=== PATIENT | male | born 2000 | race Caucasian/White ===

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

== ENCOUNTER 2020-01-03 15:30 | Outpatient (RCR) | payer BC, SELFPAY ==
--- NOTE | 2019-11-12 16:24 | HMH.PTOPEV ---
PT Outpatient Evaluation Rehab PT Outpatient Evaluation Start: 11/12/19 15:41 Freq: Status: Active Protocol: Document 11/12/19 15:42 BRANMANUELITO (Rec: 11/12/19 16:24 KESHAWN [id number]) Electronically Signed By Angel Plaza PT 11/12/19 15:42 Outpatient Therapy Subjective History Subjective History This is the initial Physical Therapy evaluation for Chandler Nguyen. Pt is a 19 y/o male referred to PT for c/o R knee pain and chronic patellar subluxation. Pt reports first bout of subluxation was ~ 4-5 months ago. Pt reports he twisted and his knee popped causing it to buckle and give out. Pt reports he had some swelling afterwards. Pt was sent to Physical Therapy s/p this incident and took PT for ~ 1 month. Pt reports he felt better and stopped therapy and HEP. Pt states that he had no problems until ~ 1 month ago when he was working on a machine at work and his knee popped and buckled. Pt reports to PT for c/o R knee pain. Chief Complaint Pain,Stiff,Swelling,Gives out/ Unstable Symptom Type Ache,Throb,Sharp Symptoms Relieved By Rest/Positioning Symptoms Aggravated By Physical Activity,Twisting Prior Functional Limitations None Current Functional Limitations Squatting,Recreation Activity, Stairs Symptom Description Intermittent Level of pain today (0-10) 0 Pain scale - at its best (0-10) 0 Pain scale - at its worst (0-10) 7 Hip/Knee Eval Gait Observation General Gait Pattern Observation Antalgic Gait Assistive Device Assistive Devices None / NA MMT right Hip Flexion Strength Grade 4 Good Hip Abduction Strength Grade 5 Normal Hip Adduction Strength Grade 5 Normal Hip External Rotation Strength Grade 4 Good Hip Internal Rotation Strength Grade 4 Good Knee Extension Strength Grade 5 Normal Knee Flexion Strength Grade 5 Normal ROM Hip ROM Reason Not Measured Within Functional Limits Knee ROM Reason Not Measured Within Functional Limits Special Tests Knee Apprehension Test Positive Right Knee Apley Compression Test Negative Right
== END 2020-01-03 16:24 | disposition home or self-care (01) ==
LOC: PT 15:30
PROVIDERS: PCP Family Medicine; Visit Provider Orthopaedic Surgery
DX: S83.001A Unspecified subluxation of right patella, initial encounter; M25.561 Pain in right knee
CPT/HCPCS: 97010; 97014; 97110; 97163; G0283

== ENCOUNTER 2020-02-17 02:55 | Emergency (ER) | payer BC, SELFPAY ==
[2020-02-17 03:05] VITALS: BP 182/92; PULSE 101; RESP 17; TEMP 36.2; O2SAT 98; BMI 30.9
--- NOTE | 2020-02-17 03:09 | CT_ITS ---
Procedure: CT ABDOMEN [facility] Referring Doctor: Mahesh Coleman Patient Age:19Y CLINICAL INDICATION: abdominal pain Right flank pain started this morning with nausea COMPARISON: CT CT A[facility]OM[facility] from 09/28/2019 TECHNIQUE: No IV contrast but no oral contrast. Helical axial images obtained with sagittal and coronal reformats. All CT scans at the facility use one or more dose reduction, viz: automated exposure control, ma/kV adjustment per patient size (including targeted exams where dose is matched to indication, i.e. head), or iterative reconstruction technique. FINDINGS: Lower thorax: No acute finding lung bases clear heart normal size 2 ABDOMEN: Liver: Mild diffuse fatty changes,. Generous volume liver.. No masses or biliary dilatation. Gallbladder: Nondistended. No radio opaque stones. Common duct normal Pancreas: Unremarkable no masses or evident inflammatory changes Spleen: un normal upper normal size but Adrenals: unremarkable ---- tract-----obstructive uropathy on right:: RIGHT KIDNEY moderate hydronephrosis with dilatation of right ureter down to a 3.4mm x 3mm x 5 mm length calculus mid right ureter, projected over the right L4 transverse process on aviation consultant view. Mild periureteral stranding and less evident right perinephric stranding stranding-reflecting the obstructive uropathy . Right kidney additionally contains a tiny nonobstructive 2 mm calculus towards lower pole Left kidney: There is a 6 x 4 x 5 mm mm calculus midportion left kidney a rather since the location but appears nonobstructive. Tiny less barely evident 1 mm calcification, calculus developing at upper pole axial image 38 Left ureter unremarkable Pelvis: Urinary bladder unremarkable-no calculi . Normal sized prostate and seminal vesicles, no free fluid pelvis. --GI tract.------ No significant findings: appendix normal.. Moderate solid stool most evident at right colon followed by transverse colon. [id number] . Stomach-moderate food filled stomach Peritoneum: No abnormal fluid collections. No obvious inflammatory changes. No free air. Lymph nodes: No enlarged lymph nodes apparent. Vasculature: No evidence of abdominal aortic aneurysm. No retroperitoneal hemorrhage evident. Bones: No acute fracture IMPRESSION: Obstructive uropathy on right. 3.4 x 3 x 5 mm stone at mid right ureter to the right of L4. With right hydronephrosis and dilatation of right ureter above this point Additional small nonobstructive bilateral renal calculi noted Mild fatty changes of liver Dictated by: John Berrios MD 02/18/2020 08:48 John Berrios MD in [place] 02/18/2020 08:48
[2020-02-17 03:15] LABS: Microscopic, Urine URINE MICROSCOPIC (MICROSCOPIC)
[2020-02-17 03:18] LABS: Appearance,Urine CLEAR (Clear); Bilirubin,Urine Negative (Negative); Blood, Urine 2+ (Negative); Color,Urine YELLOW (Yellow); Glucose,Urine (UA) Negative (Negative); Ketones,Urine Negative (Negative); Leukocyte Esterase,Urine Negative (Negative); Nitrate,Urine Negative (Negative); Protein,Urine TRACE (Negative); Specific Gravity, Urine >= 1.030 (1.005-1.030); Urobilinogen,Urine 0.2 EU/dl (0.2)
[2020-02-17 03:23] LABS: Amorphous Sediment,Urine Trace /lpf; RBC,Urine 20-50 #/hpf (0-3)
[2020-02-17 03:28] LABS: Barbiturates Screen,Urine Negative ng/ml (<200)
[2020-02-17 03:29] LABS: Amphetamine/Metha Screen,Urine Negative ng/ml (<1000); Benzodiazepines Screen,Urine Negative ng/ml (<200)
[2020-02-17 03:30] LABS: Methadone Screen,Urine Negative ng/ml (<300)
[2020-02-17 03:31] LABS: Cannabinoid Screen,Urine Negative ng/ml (<50); Cocaine Screen,Urine Negative ng/ml (<300)
[2020-02-17 03:32] LABS: Opiate Screen,Urine Positive ng/ml (<300)
[2020-02-17 03:33] LABS: Phencyclidine Screen,Urine Negative ng/ml (<25)
[2020-02-17 03:35] LABS: Basophils # 0.1 K/mm3 (0-0.2); Basophils % 0.6 % (0.1-2.0); Eosinophils # 0.3 K/mm3 (0.0-0.4); Eosinophils % 2.4 % (0.1-12.0); Hemoglobin 16.1 g/dL (14.1-18.0); Lymphocytes # 2.3 K/mm3 (0.7-4.5); Lymphocytes % 19.4 % (10-50); Mean Corpuscular HGB Conc 32.2 g/dL (31.8-35.4); Mean Corpuscular Hemoglobin 27.8 pg (27.0-31.2); Mean Corpuscular Volume 86.6 fl (80-94); Mean Platelet Volume 7.6 fl (7.4-10.4); Monocytes # 0.8 K/mm3 (0.1-1.0); Monocytes % 6.3 % (1.7-9.3); Neutrophils # 8.5 K/mm3 (1.8-7.8); Neutrophils % 71.4 % (37.0-80.0); Platelet Count 307 K/mm3 (142-424); Red Blood Count 5.77 M/mm3 (4.60-6.20); Red Cell Distribution Width 12.7 % (11.5-17.5)
[2020-02-17 03:45] LABS: Amylase 87 U/L (30-110); Anion Gap 16.7 mEq/L (5-15); Blood Urea Nitrogen 16 mg/dl (9-20); Calcium 10.5 mg/dl (8.4-10.2); Carbon Dioxide 27 mmol/L (22.0-30.0); Chloride 103 mmol/L (98-107); Creatinine Clearance Estimated 125 mL/min (50-200); Estimated Glomerular Filt Rate 86 ml/min (>60); GFR (African American) 104 ML/MIN (>60); Glucose 135 mg/dl (74-100); Lipase 30 U/L (23-300); Potassium 4.7 mmoL/L (3.5-5.1); Sodium 142 mmol/L (136-145)
[2020-02-17 04:43] VITALS: BP 132/60; PULSE 77; RESP 18; O2SAT 96
--- NOTE | 2020-02-17 04:44 | HMH.EDNVD ---
ED Disposition Clinical Impression: Renal colic on right side Disposition: Home, Self-Care Condition on Discharge: Good Instructions: DI for Kidney Stones Additional Instructions: fluids and call dr regalado tuesday Prescriptions: Hydrocod/Acet 5/325 mg [[place] 5/325mg tablet] 1 tab PO Q6HP PRN #7 tab PRN Reason: Moderate To Severe Pain Prescription Printed Referrals: Arun Scott MD [Primary Care Provider] - Kelvin Regalado MD [Staff Physician] - - Critical Care Critical Care Time: No Attestation: On 02/17/20, the high probability of a clinically significant, sudden or life threatening deterioration of the following system(s) required my full and direct attention, intervention and personal management. The time I documented below is in addition to time spent performing reported procedures but includes the following listed in this critical care notation. Medical Decision Making - Medical Records Medical records reviewed: Yes: I reviewed the patient's medical records. - Maynor Inquiry Pt receiving controlled substance: No Vital Signs: 02/17/20 03:05 02/17/20 04:43 Temperature 97.2 F L Temperature Source Oral Pulse Rate [Right Brachial] 101 H 77 Respiratory Rate 17 18 Blood Pressure [Right Arm] 182/92 H 132/60 Blood Pressure Mean [Right Arm] 122 84 Blood Pressure Source [Right Arm] Automatic Cuff Blood Pressure Position [Right Arm] Sitting 02 Sat by Pulse Oximetry 98 96 Oxygen Delivery Method Room Air Room Air - Lab Data Lab results reviewed: Yes: I reviewed the patient's lab results. Lab Results 02/17/20 03:10: Urine Color Yellow, Urine Appearance Clear, Urine pH 6.0, Ur Specific [place] >= 1.030, Urine Protein Trace, Urine Glucose (UA) Negative, Urine Ketones Negative, Urine Blood 2+, Urine Nitrate Negative, Urine Bilirubin Negative, Urine Urobilinogen 0.2, Ur Leukocyte Esterase Negative, Urine RBC 20-50, Amorphous Sediment Trace 02/17/20 03:10: Urine Opiates Screen Positive H, Urine Methadone Screen Negative, Ur Barbituates Screen Negative, Ur Phencyclidine Scrn Negative, Ur Amphetamines Screen Negative, U Benzodiazepines Scrn Negative, Urine Cocaine Screen Negative, U Marijuana (THC) Screen Negative 02/17/20 03:27: WBC 12.0, RBC 5.77, Hgb 16.1, Hct 50.0, MCV 86.6, MCH 27.8, MCHC 32.2, RDW 12.7, Plt Count 307, MPV 7.6, Neut % (Auto) 71.4, Lymph % (Auto) 19.4, [place] % (Auto) 6.3, Eos % (Auto) 2.4, Baso % (Auto) 0.6, Neut # (Auto) 8.5 H, Lymph # (Auto) 2.3, [place] # (Auto) 0.8, Eos # (Auto) 0.3, Baso # (Auto) 0.1 02/17/20 03:27: Sodium 142, Potassium 4.7, Chloride 103, Carbon Dioxide 27, Anion Gap 16.7 H, BUN 16, Creatinine 1.10, Estimated Creat Clear 125, Estimated GFR 86, Est GFR ( Amer) 104, Glucose 135 H, Calcium 10.5 H, Amylase 87, Lipase 30 Result diagrams: 02/17/20 03:27 02/17/20 03:27 Orders (Tests/Meds): ED MEDICATIONS Generic Name Dose Route Start Last Admin Trade Name Freq PRN Reason Stop Dose Admin Sodium Chloride 1,000 mls @ 999 mls/hr 02/17/20 03:15 02/17/20 03:36 Sod Chlor 0.9% 1000ml Bag IV 02/17/20 04:15 999 mls/hr .Q1H1M SHARMILA Administration Discontinued Medications Generic Name Dose Route Start Last Admin Trade Name Freq PRN Reason Stop Dose Admin Hydromorphone HCl 1 mg 02/17/20 03:48 02/17/20 03:53 Hydromorphone 2mg/Ml Syringe IV 02/17/20 03:49 1 mg ONCE ONE Administration Ketorolac Tromethamine 30 mg 02/17/20 03:10 02/17/20 03:35 Ketorolac 30mg/Ml Vial IV 02/17/20 03:11 30 mg ONCE ONE Administration Ondansetron HCl 4 mg 02/17/20 03:10 02/17/20 03:35 Ondansetron 4mg/2ml Vial IV 02/17/20 03:11 4 mg ONCE ONE Administration Tamsulosin HCl 0.4 mg 02/17/20 21:00 Tamsulosin 0.4mg Capsule PO 03/18/20 20:59 HS SHARMILA Tamsulosin HCl 0.4 mg 02/17/20 03:37 Tamsulosin 0.4mg Capsule PO 03/18/20 03:36 HS SHARMILA Tamsulosin HCl 0.4 mg 02/17/20 03:39 02/17/20 03:40 Tamsulosin 0.4mg Capsule PO 02/06
[2020-02-17 05:17] VITALS: BP 120/61; PULSE 82; RESP 18; TEMP 36.6; O2SAT 98
== END 2020-02-17 05:32 | disposition home or self-care (01) ==
PROVIDERS: Emergency Provider Emergency Medicine; PCP Family Medicine
DX: N23 Unspecified renal colic (principal); Z87.442 Personal history of urinary calculi
CPT/HCPCS: 74176; 80048; 80305; 81001; 82150; 83690; 85025; 96365; 96375; 99283; J2405

== ENCOUNTER 2020-12-01 12:55 | Emergency (ER) | payer BC, SELFPAY ==
[2020-12-01 12:57] VITALS: BP 136/71; PULSE 95; RESP 16; TEMP 36.8; O2SAT 99; BMI 30.1
[2020-12-01 13:22] VITALS: BP 134/67; PULSE 81; O2SAT 98
[2020-12-01 13:31] VITALS: BP 133/53; PULSE 82; O2SAT 97
--- NOTE | 2020-12-01 13:33 | XR_ITS ---
PROCEDURE: XR KNEE RT 3V CLINICAL INDICATION: knee pain COMPARISON: CR XR KNEE RT 3V from 12/29/2018 CR XR KNEE RT 4V from 08/23/2019 MR MR KNEE RT WO CON from 10/10/2019 FINDINGS: No fracture or dislocation. The joint spaces are well-preserved. No significant degenerative/arthritic changes. No erosive changes evident. Other findings:Faint calcification is present along the posterior aspect the patella proximally. This measures approximately 15 mm and may represent a loose body or synovial osteo chondroma. CT may confirm. IMPRESSION: No acute finding. Posterior patellar ossification which may represent a loose body/synovial osteo chondroma. CT may confirm. Dictated by: Timmy Perez MD 12/01/2020 14:27 Timmy Perez MD in [place] 12/01/2020 14:27
--- NOTE | 2020-12-01 13:43 | HMH.EDEXTP ---
ED Disposition Clinical Impression: Right knee sprain Qualifiers: Encounter type: initial encounter Involved ligament of knee: medial collateral ligament Qualified Code(s): S83.411A - Sprain of medial collateral ligament of right knee, initial encounter Disposition: Home, Self-Care Condition on Discharge: Good Instructions: Sprain Prescriptions: Ibuprofen [Ibuprofen 800mg Tablet] 800 mg PO TIDP PRN #20 tab PRN Reason: Moderate Pain Transmission Status: Pending to [facility] Referrals: Arun Scott MD [Primary Care Provider] - Davian Long MD [Staff Physician] - - Critical Care Critical Care Time: No Attestation: On 12/01/20, the high probability of a clinically significant, sudden or life threatening deterioration of the following system(s) required my full and direct attention, intervention and personal management. The time I documented below is in addition to time spent performing reported procedures but includes the following listed in this critical care notation. Medical Decision Making - Medical Records Medical records reviewed: Yes: I reviewed the patient's medical records. - Maynor Inquiry Pt receiving controlled substance: Yes Maynor was queried for this patient: No Reason not queried -: Maynor login issues Risks and benefits of using a controlled substance: were discussed with pt by me Vital Signs: 12/01/20 12:57 12/01/20 13:22 12/01/20 13:31 Temperature 98.2 F Temperature Source Oral Pulse Rate 81 82 Pulse Rate [Right Radial] 95 H Respiratory Rate 16 Blood Pressure 134/67 133/53 L Blood Pressure [Right Arm] 136/71 Blood Pressure Mean 82 79 Blood Pressure Mean [Right Arm] 92 Blood Pressure Source [Right Arm] Automatic Cuff Blood Pressure Position [Right Arm] Sitting 02 Sat by Pulse Oximetry 99 98 97 Oxygen Delivery Method Room Air Orders (Tests/Meds): ED MEDICATIONS Discontinued Medications Generic Name Dose Route Start Last Admin Trade Name Freq PRN Reason Stop Dose Admin Hydrocodone Bitart/Acetaminophen 1 tab 12/01/20 13:19 12/01/20 13:33 Apap/Hydrocodone 325mg/7.5mg Tab PO 12/01/20 13:20 1 tab ONCE ONE Administration - Radiology Data #1 Image(s): Knee Image Reviewed: Yes I reviewed the patient's radiology results, Yes I reviewed the patient's radiology image, Yes I have reviewed radiologist's interpretation IMPRESSION: No acute finding. Posterior patellar ossification which may represent a loose body/synovial osteo chondroma. CT may confirm. - Reevaluation(s) Time: 14:34 Reevaluation #1: On reevaluation, patient's pain is improved. X-ray of the knee did show some atypical bony abnormalities concerning for osteochondroma, however the patient has seen orthopedics before in the past due to previous injury in this knee. I do believe this is likely related to those injuries. However, I do believe the patient requires repeat examination by orthopedic surgery. Did offer CT scan to the patient, however he states that he could not wait at this time. Patient will be discharged with short course analgesics. Needs to follow-up with orthopedic surgery. Given strict return precautions. Verbalized understanding. Medical Decision Narrative: 20-year-old male presented to the emergency department with some right knee pain. Patient's findings are consistent with a sprain, likely MCL. There is no evidence of dislocation or vascular disruption. Work-up initiated. Extremity Problem HPI - General Chief complaint: Extremity Injury, Lower Stated complaint: ao fall 12/01 rt knee Time Seen by Provider: 12/01/20 13:00 Mode of Arrival: Wheelchair Limitations: No Limitations Description of Symptoms (Recalled from ER Triage Doc. by RN): pt c/o R knee pain r/t fall this morning. Pt reports burning type pain to R knee. Pt reports hx of torn ligaments and dislocation of R knee. - History of Present Illness HPI Narrative:
[2020-12-01 14:41] VITALS: BP 124/68; PULSE 68; RESP 16; TEMP 36.6; O2SAT 98
== END 2020-12-01 14:42 | disposition home or self-care (01) ==
PROVIDERS: Emergency Provider Emergency Medicine; PCP Family Medicine
DX: S83.411A Sprain of medial collateral ligament of right knee, initial encounter (principal); W18.2XXA Fall in (into) shower or empty bathtub, initial encounter; Y92.002 Bathroom of unspecified non-institutional (private) residence as the place of occurrence of the external cause; Z87.442 Personal history of urinary calculi
CPT/HCPCS: 73562; 99282

== ENCOUNTER → 2020-12-03 12:49 | Outpatient (CLI) | payer BC, SELFPAY ==
--- NOTE | 2020-12-03 13:03 | CT_ITS ---
PROCEDURE: CT KNEE RT WO CON CLINICAL HISTORY: RT KNEE INJURY Fall with injury and pain, abnormal radiograph COMPARISON: CR XR KNEE RT 3V from 12/29/2018 CR XR KNEE RT 3V from 12/01/2020 TECHNIQUE: Axial images obtained with sagittal and coronal reformats. All CT scans at the facility use one or more dose reduction, viz: automated exposure control, ma/kV adjustment per patient size (including targeted exams where dose is matched to indication, i.e. head), or iterative reconstruction technique. FINDINGS: No acute fracture or dislocation is evident. No significant effusion. There is a flat like area calcification between the superior and lateral aspect of the patella and the distal femur measuring 1.5 by 1.4 cm and 2 mm in thickness and an additional area along the lateral aspect of the distal femur approximately 1 by 1 cm x 1 mm in thickness. These are well-circumscribed. No other significant anomalies are evident. No significant knee joint effusion. There is some minimal lateral patellar subluxation. IMPRESSION: 1. No acute fracture. 2. Intra-articular loose bodies at the patellofemoral joint as described above. No obvious donor site identified that would indicate that these fragments represent avulsion fractures. Dictated by: Timmy Perez MD 12/03/2020 14:29 Timmy Perez MD in [place] 12/03/2020 14:29
== END ==
PROVIDERS: PCP Family Medicine; Visit Provider Family Medicine
DX: S89.91XA Unspecified injury of right lower leg, initial encounter (principal)
CPT/HCPCS: 73700

== ENCOUNTER → 2020-12-23 13:01 | Outpatient (CLI) | payer BC, SELFPAY ==
--- NOTE | 2020-12-23 13:02 | MR_ITS ---
PROCEDURE: MR KNEE RT WO CON CLINICAL INDICATION: Right knee pain Recurrence knee dislocation COMPARISON: CT CT KNEE RT WO CON from 12/03/2020 TECHNIQUE: Routine multiplanar multi echo sequences are performed without gadolinium enhancement. FINDINGS: The ACL and PCL appear intact. Collateral ligaments have an unremarkable appearance. The patellar tendon and quadriceps tendon unremarkable. Nondisplaced horizontal tear involves the medial aspect of the anterior horn of the lateral meniscus. Posterior horn of the lateral meniscus appears unremarkable. No medial meniscal tear evident. There is minimal lateral patellar subluxation. There is a shallow trochlear groove. The lateral patellofemoral ligament appears intact. There is some ill definition of the medial patellofemoral ligament which could be due to sprain. A complete tear is not felt to be present. CT scan demonstrated loose bodies in the lateral patellofemoral region on 12/03/2020. There is an area of linear decreased PD signal in the retropatellar region superiorly measuring 10 x 2 mm and may represent a loose body. Loose bodies are better demonstrated on the CT scan. There is a small knee joint effusion. No evidence of bone bruise or osteochondrosis dissecans. IMPRESSION: 1. Nondisplaced horizontal tear involves the medial aspect of the anterior horn of the lateral meniscus. 2. Mild lateral patellar subluxation with suspected sprain or partial tear of the medial patellofemoral ligament 3. Small knee joint effusion with at least 1 loose fragment identified in the retropatellar region. The loose fragments are much better demonstrated on the recent CT scan Dictated by: Timmy Perez MD 12/24/2020 11:32 Timmy Perez MD in [place] 12/24/2020 11:32
== END ==
PROVIDERS: PCP Family Medicine; Visit Provider Orthopaedic Surgery
DX: M25.561 Pain in right knee (principal); M22.11 Recurrent subluxation of patella, right knee; M23.41 Loose body in knee, right knee; S89.91XA Unspecified injury of right lower leg, initial encounter
CPT/HCPCS: 73721

== ENCOUNTER 2021-02-08 20:01 | Emergency (ER) | payer BC, SELFPAY ==
[2021-02-08 20:03] VITALS: BP 170/97; PULSE 100; RESP 20; TEMP 36.7; O2SAT 97; BMI 30.1
--- NOTE | 2021-02-08 20:19 | CT_ITS ---
PROCEDURE INFORMATION: Exam: CT Abdomen And Pelvis Without Contrast Exam date and time: 02/08/2021 8:19 PM Age: 20 years old Clinical indication: Abdominal pain; Flank; Left; Additional info: Lt flank pain HX of kidney stones TECHNIQUE: Imaging protocol: Computed tomography of the abdomen and pelvis without contrast. Radiation optimization: All CT scans at this facility use at least one of these dose optimization techniques: automated exposure control; mA and/or kV adjustment per patient size (includes targeted exams where dose is matched to clinical indication); or iterative reconstruction. COMPARISON: CT ABDOMEN PELVIS WO CON 02/17/2020 4:02 AM FINDINGS: Liver: Parenchymal enhancement is not evaluated without contrast. No hepatomegaly. Gallbladder and bile ducts: No calcified stones. No ductal dilation. Pancreas: Parenchymal enhancement is not evaluated without contrast. No ductal dilation. Spleen: Parenchymal enhancement is not evaluated without contrast. Scattered granulomas. No splenomegaly. Adrenal glands: No mass. Kidneys and ureters: Several punctate nonobstructing left renal calcifications. Moderate left-sided hydronephrosis with 8 x 6 x 17 mm stone near the UPJ. Stomach and bowel: No obstruction. No mucosal thickening. Appendix: No evidence of appendicitis. Intraperitoneal space: No free air. No significant fluid collection. Vasculature: Limited evaluation without contrast. No abdominal aortic aneurysm. Lymph nodes: No enlarged lymph nodes. Urinary bladder: No acute abnormality. Reproductive: No acute abnormality. Bones/joints: No acute fracture. Soft tissues: Limited evaluation without contrast. No significant soft tissue swelling. IMPRESSION: Moderate left-sided hydronephrosis with 8 x 6 x 17 mm stone near the UPJ.
[2021-02-08 20:27] LABS: Microscopic, Urine URINE MICROSCOPIC (MICROSCOPIC)
[2021-02-08 20:29] LABS: Appearance,Urine SL CLOUDY (Clear); Bilirubin,Urine Negative (Negative); Blood, Urine 2+ (Negative); Color,Urine YELLOW (Yellow); Glucose,Urine (UA) Negative (Negative); Ketones,Urine Negative (Negative); Leukocyte Esterase,Urine Negative (Negative); Nitrate,Urine Negative (Negative); Protein,Urine Negative (Negative); Specific Gravity, Urine 1.015 (1.005-1.030); Urobilinogen,Urine 0.2 EU/dl (0.2)
[2021-02-08 20:48] LABS: WBC,Urine Occasional #/hpf (0-3)
[2021-02-08 20:49] LABS: Bacteria,Urine Trace /lpf; Squamous Epithelial Cell,Urine Occasional #/hpf (0-5)
--- NOTE | 2021-02-08 20:58 | HMH.EDNVD ---
ED Disposition Clinical Impression: Renal colic on left side Disposition: Home, Self-Care Condition on Discharge: Fair Instructions: DI for Acute Abdominal Pain Additional Instructions: call urology and pcp in am Referrals: Arun Scott MD [Primary Care Provider] - Kelvin Peralta MD [Staff Physician] - - Critical Care Critical Care Time: No Attestation: On 02/08/21, the high probability of a clinically significant, sudden or life threatening deterioration of the following system(s) required my full and direct attention, intervention and personal management. The time I documented below is in addition to time spent performing reported procedures but includes the following listed in this critical care notation. Medical Decision Making - Medical Records Medical records reviewed: Yes: I reviewed the patient's medical records. - Maynor Inquiry Pt receiving controlled substance: No Vital Signs: 02/08/21 20:03 Temperature 98.1 F Temperature Source Oral Pulse Rate [Right] 100 H Respiratory Rate 20 Blood Pressure [Right Arm] 170/97 H Blood Pressure Mean [Right Arm] 121 02 Sat by Pulse Oximetry 97 - Lab Data Lab results reviewed: Yes: I reviewed the patient's lab results. Lab Results 02/08/21 20:10: Urine Color Yellow, Urine Appearance Sl cloudy, Urine pH 8.0, Ur Specific [place] 1.015, Urine Protein Negative, Urine Glucose (UA) Negative, Urine Ketones Negative, Urine Blood 2+, Urine Nitrate Negative, Urine Bilirubin Negative, Urine Urobilinogen 0.2, Ur Leukocyte Esterase Negative, Urine RBC 10-20, Urine WBC Occasional, Ur Squamous Epith Cells Occasional, Urine Bacteria Trace 02/08/21 20:15: WBC 9.1, RBC 5.99, Hgb 16.6, Hct 52.6 H, MCV 87.9, MCH 27.7, MCHC 31.5 L, RDW 13.9, Plt Count 296, MPV 8.3, Neut % (Auto) 63.0, Lymph % (Auto) 27.6, [place] % (Auto) 6.7, Eos % (Auto) 1.6, Baso % (Auto) 1.0, Neut # (Auto) 5.7, Lymph # (Auto) 2.5, [place] # (Auto) 0.6, Eos # (Auto) 0.2, Baso # (Auto) 0.1, ESR 4 02/08/21 20:15: Sodium 141, Potassium 4.5, Chloride 105, Carbon Dioxide 25, Anion Gap 15.5 H, BUN 13, Creatinine 0.90, Estimated Creat Clear 143, Estimated GFR 108, Est GFR ( Amer) 130, Glucose 103 H, Calcium 9.3, Total Bilirubin 0.5, AST 35, ALT 52, Alkaline Phosphatase 70, C-Reactive Protein 1.6, Total Protein 7.8, Albumin 4.7, Globulin 3.1, Albumin/Globulin Ratio 1.5, Procalcitonin 0.061 Result diagrams: 02/08/21 20:15 02/08/21 20:15 Orders (Tests/Meds): ED MEDICATIONS Generic Name Dose Route Start Last Admin Trade Name Freq PRN Reason Stop Dose Admin Sodium Chloride 1,000 mls @ 999 mls/hr 02/08/21 21:15 02/08/21 21:15 Sod Chlor 0.9% 1000ml Bag IV 02/08/21 22:15 999 mls/hr .Q1H1M SHARMILA Administration Tamsulosin HCl 0.4 mg 02/09/21 21:14 Tamsulosin 0.4mg Capsule PO 02/09/21 21:15 ONCE ONE Discontinued Medications Generic Name Dose Route Start Last Admin Trade Name Freq PRN Reason Stop Dose Admin Hydromorphone HCl 1 mg 02/08/21 20:30 02/08/21 21:10 Hydromorphone 2mg/Ml Syringe IV 02/08/21 20:31 1 mg ONCE ONE Administration Hydromorphone HCl 1 mg 02/08/21 21:09 02/08/21 21:10 Hydromorphone 2mg/Ml Syringe IV 02/08/21 21:10 1 mg ONCE ONE Administration Sodium Chloride 1,000 mls @ 999 mls/hr 02/08/21 20:30 02/08/21 20:43 Sod Chlor 0.9% 1000ml Bag IV 02/08/21 21:30 999 mls/hr .Q1H1M SHARMILA Administration Ketorolac Tromethamine 30 mg 02/08/21 20:20 02/08/21 20:43 Ketorolac 30mg/Ml Vial IV 02/08/21 20:21 30 mg ONCE ONE Administration Ondansetron HCl 4 mg 02/08/21 20:20 02/08/21 20:43 Ondansetron 4mg/2ml Vial IV 02/08/21 20:21 4 mg ONCE ONE Administration Prochlorperazine Edisylate 10 mg 02/08/21 21:39 02/08/21 22:07 Prochlorperazine 10mg/2ml Vial IV 02/08/21 21:40 10 mg ONCE ONE Administration - CT Data CT Scan: Abdomen, Pelvis Time Received: 21:[address] Reviewed: Yes: I have viewed the radiologist's interpret
[2021-02-08 21:01] LABS: Basophils # 0.1 K/mm3 (0-0.2); Eosinophils # 0.2 K/mm3 (0.0-0.4); Eosinophils % 1.6 % (0.1-12.0); Hematocrit 52.6 % (42.0-52.0); Hemoglobin 16.6 g/dL (14.1-18.0); Lymphocytes # 2.5 K/mm3 (0.7-4.5); Lymphocytes % 27.6 % (10-50); Mean Corpuscular HGB Conc 31.5 g/dL (31.8-35.4); Mean Corpuscular Hemoglobin 27.7 pg (27.0-31.2); Mean Corpuscular Volume 87.9 fl (80-94); Mean Platelet Volume 8.3 fl (7.4-10.4); Monocytes # 0.6 K/mm3 (0.1-1.0); Monocytes % 6.7 % (1.7-9.3); Neutrophils # 5.7 K/mm3 (1.8-7.8); Platelet Count 296 K/mm3 (142-424); Red Blood Count 5.99 M/mm3 (4.60-6.20); Red Cell Distribution Width 13.9 % (11.5-17.5); White Blood Count 9.1 K/mm3 (4.5-13.0)
[2021-02-08 21:11] LABS: Alanine Aminotransferase 52 U/L (12-78); Albumin Level 4.7 g/dl (3.5-5.0); Albumin/Globulin Ratio 1.5 (1.1-1.8); Alkaline Phosphatase 70 U/L (38-126); Anion Gap 15.5 mEq/L (5-15); Aspartate Amino Transferase 35 U/L (17-59); Bilirubin,Total 0.5 mg/dl (0.2-1.3); Blood Urea Nitrogen 13 mg/dl (9-20); Calcium 9.3 mg/dl (8.4-10.2); Carbon Dioxide 25 mmol/L (22.0-30.0); Chloride 105 mmol/L (98-107); Creatinine Clearance Estimated 143 mL/min (50-200); Estimated Glomerular Filt Rate 108 ml/min (>60); GFR (African American) 130 ML/MIN (>60); Globulin 3.1 g/dL (1.3-3.2); Glucose 103 mg/dl (74-100); Potassium 4.5 mmoL/L (3.5-5.1); Sodium 141 mmol/L (136-145); Total Protein,Serum 7.8 g/dl (6.3-8.2)
[2021-02-08 21:16] LABS: C-Reactive Protein 1.6 mg/L (0-4)
[2021-02-08 21:26] LABS: Erythrocyte Sedimentation Rate 4 mm/hr (0-15)
[2021-02-08 21:30] LABS: Procalcitonin 0.061 ng/mL (0.0-2.0)
[2021-02-08 22:24] VITALS: BP 134/72; PULSE 80; RESP 16; TEMP 36.7; O2SAT 99
== END 2021-02-08 22:27 | disposition home or self-care (01) ==
PROVIDERS: Emergency Provider Emergency Medicine; PCP Family Medicine
DX: N23 Unspecified renal colic (principal); Z87.442 Personal history of urinary calculi; R73.9 Hyperglycemia, unspecified
CPT/HCPCS: 74176; 80053; 81001; 84145; 85025; 85651; 86140; 96365; 96366; 96375; 96376; 99283; J2405

== ENCOUNTER 2021-02-09 03:34 | Emergency (ER) | payer BC, SELFPAY ==
[2021-02-09] VITALS (8 sets, daily range): BP systolic 128–177; BP diastolic 68–100; PULSE 87–111; RESP 14–22; TEMP 36.7–36.9; O2SAT 92–99; BMI 30.9
--- NOTE | 2021-02-09 06:12 | PC.NURSE ---
s/w pt's father, gave update on pt.
--- NOTE | 2021-02-09 06:23 | HMH.EDUROGM ---
ED Disposition Clinical Impression: Renal colic on left side Disposition: Home, Self-Care Condition on Discharge: Good Instructions: DI for Kidney Stones Additional Instructions: see pcp and urology for follow up Prescriptions: Ketorolac Tromethamine [Toradol 10mg tablet] 10 mg PO Q6HP PRN #10 tab MDD 40mg/day PRN Reason: Moderate To Severe Pain Transmission Status: Pending to [facility] Referrals: Arun Scott MD [Primary Care Provider] - - Critical Care Critical Care Time: No Attestation: On 02/09/21, the high probability of a clinically significant, sudden or life threatening deterioration of the following system(s) required my full and direct attention, intervention and personal management. The time I documented below is in addition to time spent performing reported procedures but includes the following listed in this critical care notation. Medical Decision Making - Medical Records Medical records reviewed: Yes: I reviewed the patient's medical records. - Maynor Inquiry Pt receiving controlled substance: No Vital Signs: 02/09/21 03:34 Temperature 98.5 F Temperature Source Oral Pulse Rate [Right] 99 H Respiratory Rate 22 Blood Pressure [Right Arm] 177/100 H Blood Pressure Mean [Right Arm] 125 02 Sat by Pulse Oximetry 98 Oxygen Delivery Method Room Air - Lab Data Lab results reviewed: Yes: I reviewed the patient's lab results. Orders (Tests/Meds): ED MEDICATIONS Discontinued Medications Generic Name Dose Route Start Last Admin Trade Name Freq PRN Reason Stop Dose Admin Hydromorphone HCl 1 mg 02/09/21 04:44 02/09/21 04:58 Hydromorphone 2mg/Ml Syringe IV 02/09/21 04:45 1 mg ONCE ONE Administration Sodium Chloride 1,000 mls @ 999 mls/hr 02/09/21 04:45 02/09/21 04:59 Sod Chlor 0.9% 1000ml Bag IV 02/09/21 05:45 999 mls/hr .Q1H1M SHARMILA Administration Ketorolac Tromethamine 30 mg 02/09/21 05:38 02/09/21 05:39 Ketorolac 30mg/Ml Vial IV 02/09/21 05:39 30 mg ONCE ONE Administration Promethazine HCl 25 mg 02/09/21 04:44 02/09/21 04:59 Promethazine Hcl 25mg/Ml 1ml Vial IV 02/09/21 04:45 25 mg ONCE ONE Administration Medical Decision Narrative: has known stone and needs to see ortho Male Urogenital HPI - General Chief complaint: Abdominal Pain Stated complaint: Kidney stone pain Time Seen by Provider: 02/09/21 04:00 Mode of Arrival: Family Vehicle Source of Information: Patient, Medical Record Limitations: No Limitations Description of Symptoms (Recalled from ER Triage Doc. by RN): Pt returns to the ED c/o Left flank pain d/t his kidney stone. Pt states the pain increased to 10/10 on [employer] 0315. He states he took 1 tab of the Tylenol 3 but it has not relieved his pain. Pt denies any voiding complications. He reports to be straining his urine and drinking plenty of water. Denies fever, chills. - History of Present Illness HPI Narrative: has knoen kidney stone and has pain w/o fever or rash Complaint: other (flank pain) Onset (ago): hour(s) Duration: intermittent Radiation: left flank Severity: moderate Reports: denies other symptoms - Related Data Previous Rx's Medication Instructions Recorded Ketorolac Tromethamine [Toradol 10 mg PO Q6HP PRN #10 tab MDD 02/09/21 10mg tablet] 40mg/day Allergies Allergy/AdvReac Type Severity Reaction Status Date / Time No Known Allergies Allergy Verified 12/31/20 13:05 [facility] History - Hepatitis A Screen Drug use history?: No High risk sexual behaviors?: No History of sexually transmitted infection?: No Currently employed?: No Childcare worker?: No Do you have indoor plumbing?: Yes Do you have electricity?: Yes Attestation statement:: This patient has been screened for Hepatitis A risk factors. I have reviewed the patient's past medical history: Yes Medical History: Reports:: Kidney Stones Denies:: Cancer, Diabetes Mellitus Type 1, D
== END 2021-02-09 06:35 | disposition home or self-care (01) ==
PROVIDERS: Emergency Provider Emergency Medicine; PCP Family Medicine
DX: N23 Unspecified renal colic (principal); Z87.442 Personal history of urinary calculi
CPT/HCPCS: 96365; 96375; 99282

== ENCOUNTER → 2021-02-09 13:22 | Outpatient (CLI) | payer BC, SELFPAY ==
--- NOTE | 2021-02-09 13:27 | XR_ITS ---
PROCEDURE: XR KUB CLINICAL INDICATION: kidney stone COMPARISON: CR XR KUB from 04/30/[address] ABDOMEN PELVIS WO CON from 02/08/2021 FINDINGS: There is left nephrolithiasis. A triangular shaped 17 by 7 mm stone is noted just lateral to the left L2 transverse process consistent with a proximal ureteral stone not significantly changed from 02/08/2021. Small stones are present in the left kidney measuring up to 5 mm. IMPRESSION: 17 x 7 mm proximal left ureteral stone with left nephrolithiasis Dictated by: Timmy Perez MD 02/09/2021 17:34 Timmy Perez MD in [place] 02/09/2021 17:34
== END ==
PROVIDERS: PCP Family Medicine; Visit Provider Urology
DX: N20.0 Calculus of kidney (principal)
CPT/HCPCS: 74018; C9803; U0003; U0005

== ENCOUNTER 2021-02-10 06:06 | Day surgery (SDC) | payer BC, SELFPAY ==
[2021-02-10] VITALS (8 sets, daily range): BP systolic 106–143; BP diastolic 56–78; PULSE 91–99; RESP 14–16; TEMP 36.5–37.6; O2SAT 93–100; BMI 30.9
--- NOTE | 2021-02-10 07:44 | P.PN_ITS ---
[facility] Anesthesia Checklist - Patient Identification Patient Identification: Arm Band - Structural Data Admitted From: Home Planned Operative Procedure/s: cystoscopy with left stent placement Consent for Planned Operative Procedure(s) Verified: Yes Verified Documents: Surgical Consent, History and Physical - NPO Status Verified Time NPO: 00:00 - Additional verifications Anesthesia Reactions: No Hx Blood Transfusions: No Blood Transfusion Reaction: No - Airway Assessment C-Spine Mobility Assessed: Yes (mp2) TMJ Mobility Assessed: Yes Dentition: Good Dentition - Neurological Assessment Level of Consciousness: Awake, Alert - Anesthesia Plan Anesthesia Risk discussed: Yes Anesthesia Plan: Verified ASA Class: II Anesthesia Type: General [facility] History I have reviewed the patient's past medical history: Yes Medical History: Reports:: Kidney Stones Denies:: Cancer, Diabetes Mellitus Type 1, Diabetes Mellitus Type 2, Internal Pacemaker, MRSA, Seizures *Have you ever received a pneumonia vaccine?: No *Have you received a flu vaccine this season?: No Other Medical History: Denies: Blood Transfusion Reaction Anesthesia experience/problems:: nac Other Surgeries: Yes: Other. No: Pacemaker Amputation: No Fractures: No - *Social History Last grade of school completed: High school graduate Smoking Status: Never smoker Alcohol Intake: never Substance Use Type: denies use *Occupational Status:: employed Housing: house Household Members: family *Travel in the last 8 weeks: None Family Hx:: Cancer
--- NOTE | 2021-02-10 08:23 | P.PN_ITS ---
[facility] Anesthesia Record Part I Intake, IV Amount: 500 Estimated blood loss (mL): 0 Urine output (mL): 0 Blood Pressure: 106/58 SaO2: 93 Pulse Rate: 93 Respiratory Rate: 16 Temperature: 99.7 F Patient is:: Drowsy, Stable Stable to PACU at:: 08:20
--- NOTE | 2021-02-10 08:29 | XR_ITS ---
PROCEDURE: XR KUB CLINICAL INDICATION: STENT PLACEMENT IN OR COMPARISON: CR XR KUB from 02/09/2021 FINDINGS: Fluoroscopy time: 31 seconds. Single image submitted shows a ureteral stent present with the proximal aspect curled in the left upper quadrant overlying the left kidney. IMPRESSION: Fluoroscopic assisted stent placement Dictated by: Timmy Perez MD 02/10/2021 17:57 Timmy Perez MD in [place] 02/10/2021 17:57
--- NOTE | 2021-02-10 09:05 | P.OP_ITS ---
Date of procedure: 02/10/21 Pre-op Diagnosis:: Left proximal ureteral stone, 13 x 7 mm Post-op Diagnosis:: Same Procedure performed:: Cystoscopy with stone manipulation and left stent placement Surgeon:: Kelvin Peralta MD DEV MANAGER:: León Sanchez Anesthesia: LMA Estimated blood loss (mL): 0 Clinical Note:: Patient is a 20-year-old white male with history of cystine stones. He has left renal colic and CT scan shows a 13 x 7 mm stone in the proximal ureter with associated hydronephrosis. He presents for urologic management. Operative findings:: 13 x 7 mm stone in the proximal left ureter. Operative note:: Patient taken to the operating room after informed consent was obtained. Placed on the operating table in the supine position and general anesthesia administered. Preoperative antibiotics administered and patient placed into the dorsal lithotomy position. Patient was prepped and draped in the standard surgical fashion. 22 [place] cystoscope passed into the urethra and into the bladder without difficulty. The bladder was examined in a systematic fashion. No abnormalities were noted. There was clear efflux of urine from the right ureteral orifice but no efflux of urine from the left ureteral orifice. A 5 [place] open-ended ureteral catheter passed into the left ureteral orifice and up to the proximal ureteral stone. Under fluoroscopy we were able to manipulate the stone back into the left renal pelvis. A guidewire then passed through the ureteral catheter and the ureteral catheter removed. A 4.8 x 24 [place] stent then passed over the guidewire and the guidewire removed. Fluoroscopy revealed a good curl proximally and distally. The string was left on for later removal. The scope removed and Urojet placed into the urethra. Patient tolerated procedure well no complications. Condition: stable Disposition: PACU Specimens:: None Complications:: None
--- NOTE | 2021-02-11 08:32 | HMH.ANESII ---
[facility] Anesthesia Record Part II Discharge Time: 08:50 Destination: [facility] PACU nurse assessment reviewed?: Yes Patient Condition:: Good Anesthesia Complications:: None Swallowing reflex intact?: Yes Cyanosis?: No Blood Pressure: 143/78 Pulse Rate: 98 Temperature: 97.7 F Mental Status: Alert & Oriented Pain level:: 3 Nausea and/or vomitting:: None Intake, IV Amount: 1,000
[2021-02-11 08:33] VITALS: BP 143/78; PULSE 98; TEMP 36.5
== END 2021-02-10 09:21 | disposition home or self-care (01) ==
PROVIDERS: PCP Family Medicine; Visit Provider Urology
PROC: (CPT 52330; principal; 2021-02-10 07:30)
DX: N20.1 Calculus of ureter (principal); Z80.9 Family history of malignant neoplasm, unspecified; Z87.442 Personal history of urinary calculi
CPT/HCPCS: 52330; 74018; 76000; 96374; C1769; C2617; J2405

== ENCOUNTER → 2021-02-12 13:20 | Outpatient (CLI) | payer BC, SELFPAY | PROVIDERS: Visit Provider Urology | DX: Z01.812 Encounter for preprocedural laboratory examination (principal); Z11.52 Encounter for screening for COVID-19; N20.1 Calculus of ureter; U07.1 COVID-19 | CPT/HCPCS: C9803; U0003; U0005 ==

== ENCOUNTER 2021-02-13 11:59 | Day surgery (SDC) | payer BC, SELFPAY ==
[2021-02-13] VITALS (8 sets, daily range): BP systolic 125–151; BP diastolic 65–85; PULSE 78–99; RESP 12–18; TEMP 36.1–36.4; O2SAT 95–100
--- NOTE | 2021-02-13 12:07 | XR_ITS ---
PROCEDURE: XR KUB CLINICAL INDICATION: ureteral stone COMPARISON: CT scan abdomen pelvis 02/08/2021 FINDINGS: There is moderate stool and gas in the ascending colon and hepatic flexure. There is minimal stool in the sigmoid colon. There is a left ureteral stent noted extending from the renal pelvis to the bladder floor. There are no definite calculi overlying the renal shadow or along the course of the ureteral stent. Probably there has been a previous interval lithotripsy. IMPRESSION: Left ureteral stent in place, no definite left renal or ureteral calculi visualized Dictated by: Dr. Parker Olmos MD 02/13/2021 13:13 Dr. Parker Olmos MD in [place] 02/13/2021 13:13
--- NOTE | 2021-02-13 16:07 | P.PN_ITS ---
[facility] Anesthesia Checklist - Structural Data Admitted From: Home Planned Operative Procedure/s: eswl Consent for Planned Operative Procedure(s) Verified: Yes - Additional verifications Anesthesia Reactions: No Hx Blood Transfusions: No Blood Transfusion Reaction: No - Airway Assessment C-Spine Mobility Assessed: Yes TMJ Mobility Assessed: Yes Dentition: Good Dentition - Neurological Assessment Level of Consciousness: Awake, Alert, Appropriate - Anesthesia Plan Anesthesia Risk discussed: Yes Anesthesia Plan: Verified ASA Class: II Anesthesia Type: General [facility] History I have reviewed the patient's past medical history: Yes Medical History: Reports:: Kidney Stones Denies:: Cancer, Diabetes Mellitus Type 1, Diabetes Mellitus Type 2, Internal Pacemaker, MRSA, Seizures *Have you ever received a pneumonia vaccine?: Yes *Have you received a flu vaccine this season?: No Other Medical History: Denies: Blood Transfusion Reaction Anesthesia experience/problems:: none Other Surgeries: Yes: No Previous Surgery, Other. No: Pacemaker Amputation: No Fractures: No - *Social History Last grade of school completed: High school graduate Smoking Status: Never smoker Alcohol Intake: never Substance Use Type: denies use *Occupational Status:: employed Housing: house Household Members: family *Travel in the last 8 weeks: None Family Hx:: No significant family history
--- NOTE | 2021-02-13 16:42 | P.OP_ITS ---
Date of procedure: 02/13/21 Pre-op Diagnosis:: Left proximal ureteral stone Post-op Diagnosis:: Same Procedure performed:: Left ESWL, stent removal per indwelling string Surgeon:: Kelvin Peralta MD ROADING ENGINEER:: Rodney Myers Anesthesia: LMA Estimated blood loss (mL): 0 Clinical Note:: 20-year-old white male with a history of cystine stones is a 13 x 7 mm stone in the proximal ureter. He is status post recent stent placement. He presents for left ESWL. Operative findings:: 13 x 7 mm stone in the proximal left ureter. Stent is in good position. Operative note:: Patient taken to the operating room after informed consent was obtained. He was placed on the operating table in the supine position and general anesthesia administered. Preoperative antibiotics and sequential compression devices were placed. He was then positioned in an appropriate fashion for F2 the lithotripter to be focused onto the left proximal ureteral stone. 4000 shockwaves at an energy level of 9 were delivered. At the end of the case the left ureteral stent was removed with use of the attached string that was hanging out of the urethra. Stent was removed without difficulty. Patient tolerated procedure well. Condition: stable Disposition: PACU Specimens:: Left ureteral stent Complications:: None
--- NOTE | 2021-02-13 16:49 | P.PN_ITS ---
[facility] Anesthesia Record Part I Intake, IV Amount: 1,500 Estimated blood loss (mL): 0 Urine output (mL): 0 Blood Pressure: 125/67 SaO2: 100 Pulse Rate: 78 Respiratory Rate: 12 Temperature: 97.5 F Patient is:: Awake, Stable Stable to PACU at:: 16:40
--- NOTE | 2021-02-16 07:04 | SUR.OPER ---
02/13/21 1635 Stent removed in OR
--- NOTE | 2021-02-16 13:39 | HMH.ANESII ---
[facility] Anesthesia Record Part II Discharge Time: 17:10 Destination: Surgical Day Care (OP Surgery) PACU nurse assessment reviewed?: Yes Patient Condition:: Good Anesthesia Complications:: None Swallowing reflex intact?: Yes Cyanosis?: No Blood Pressure: 143/79 Pulse Rate: 87 Temperature: 97 F Mental Status: Alert & Oriented Pain level:: 0 Nausea and/or vomitting:: None Intake, IV Amount: 0
[2021-02-16 13:40] VITALS: BP 143/79; PULSE 87; TEMP 36.1
== END 2021-02-13 17:42 | disposition home or self-care (01) ==
PROVIDERS: PCP Family Medicine; Visit Provider Urology
PROC: (CPT 50590; principal; 2021-02-13 13:45)
DX: N20.1 Calculus of ureter (principal)
CPT/HCPCS: 50590; 74018; 96374; J2405

== ENCOUNTER 2021-02-15 01:27 | Inpatient (IN) | payer BC, SELFPAY ==
[2021-02-15] VITALS (11 sets, daily range): BP systolic 106–165; BP diastolic 60–97; PULSE 93–111; RESP 16–20; TEMP 36.4–36.8; O2SAT 95–99; BMI 27.3
[2021-02-15 01:44] LABS: Microscopic, Urine URINE MICROSCOPIC (MICROSCOPIC)
[2021-02-15 01:48] LABS: Appearance,Urine CLEAR (Clear); Bilirubin,Urine Negative (Negative); Blood, Urine 2+ (Negative); Color,Urine YELLOW (Yellow); Glucose,Urine (UA) Negative (Negative); Ketones,Urine Negative (Negative); Leukocyte Esterase,Urine Negative (Negative); Nitrate,Urine Negative (Negative); Protein,Urine Negative (Negative); Specific Gravity, Urine >= 1.030 (1.005-1.030); Urobilinogen,Urine 0.2 EU/dl (0.2)
[2021-02-15 01:53] LABS: Amorphous Sediment,Urine Trace /lpf
[2021-02-15 01:57] LABS: Basophils % 0.3 % (0.1-2.0); Eosinophils # 0.1 K/mm3 (0.0-0.4); Eosinophils % 0.6 % (0.1-12.0); Hematocrit 47.3 % (42.0-52.0); Hemoglobin 15.1 g/dL (14.1-18.0); Lymphocytes # 1.8 K/mm3 (0.7-4.5); Lymphocytes % 16.2 % (10-50); Mean Corpuscular Hemoglobin 28.2 pg (27.0-31.2); Mean Platelet Volume 7.7 fl (7.4-10.4); Monocytes # 0.9 K/mm3 (0.1-1.0); Monocytes % 7.6 % (1.7-9.3); Neutrophils # 8.4 K/mm3 (1.8-7.8); Neutrophils % 75.2 % (37.0-80.0); Platelet Count 290 K/mm3 (142-424); Red Blood Count 5.37 M/mm3 (4.60-6.20); Red Cell Distribution Width 13.8 % (11.5-17.5); White Blood Count 11.2 K/mm3 (4.5-13.0)
[2021-02-15 02:07] LABS: Alanine Aminotransferase 39 U/L (12-78); Albumin Level 4.3 g/dl (3.5-5.0); Albumin/Globulin Ratio 1.5 (1.1-1.8); Alkaline Phosphatase 65 U/L (38-126); Anion Gap 15.3 mEq/L (5-15); Aspartate Amino Transferase 29 U/L (17-59); Bilirubin,Total 0.4 mg/dl (0.2-1.3); Blood Urea Nitrogen 19 mg/dl (9-20); Calcium 9.3 mg/dl (8.4-10.2); Carbon Dioxide 25 mmol/L (22.0-30.0); Chloride 105 mmol/L (98-107); Creatinine Clearance Estimated 105 mL/min (50-200); Estimated Glomerular Filt Rate 70 ml/min (>60); GFR (African American) 85 ML/MIN (>60); Globulin 2.9 g/dL (1.3-3.2); Glucose 112 mg/dl (74-100); Potassium 4.3 mmoL/L (3.5-5.1); Sodium 141 mmol/L (136-145); Total Protein,Serum 7.2 g/dl (6.3-8.2)
--- NOTE | 2021-02-15 02:24 | CT_ITS ---
PROCEDURE INFORMATION: Exam: CT Abdomen And Pelvis Without Contrast Exam date and time: 02/15/2021 2:24 AM Age: 20 years old Clinical indication: Abdominal pain; Flank; Prior surgery; Surgery date: Post-operative (0-2 days); Surgery type: Lithotripsy left kidney stones; Additional info: Left flank pain TECHNIQUE: Imaging protocol: Computed tomography of the abdomen and pelvis without contrast. Radiation optimization: All CT scans at this facility use at least one of these dose optimization techniques: automated exposure control; mA and/or kV adjustment per patient size (includes targeted exams where dose is matched to clinical indication); or iterative reconstruction. COMPARISON: CT ABDOMEN PELVIS WO CON 02/08/2021 8:28 PM FINDINGS: Lungs: No bibasilar consolidation. Liver: No contour deforming lesion. Gallbladder and bile ducts: No calcified stones. Pancreas: No peripancreatic inflammatory changes. Spleen: Multiple calcified splenic granulomas. Moderate splenomegaly. Adrenal glands: No mass. Kidneys and ureters: Moderate left-sided hydronephrosis secondary to obstructing 0.7 x 1.0 cm calculus in the ureteropelvic junction. Additional bilateral nonobstructing renal calculi measuring up to 0.5 centimetres. Stomach and bowel: Non-obstructive bowel gas pattern. Appendix: Unremarkable appendix. Intraperitoneal space: No free air. No ascites. Vasculature: No abdominal aortic aneurysm. Lymph nodes: No grossly enlarged lymph nodes. Urinary bladder: The urinary bladder is collapsed. Reproductive: Unremarkable as visualized. Bones/joints: No acute fracture. No suspicious osseous lesion. Soft tissues: No obvious suspicious lesion. IMPRESSION: Moderate left-sided hydronephrosis secondary to obstructing 0.7 x 1.0 cm calculus in the ureteropelvic junction.
--- NOTE | 2021-02-15 03:19 | HMH.EDGENADL ---
ED Disposition Clinical Impression: Left renal stone Hydronephrosis Qualifiers: Hydronephrosis type: with ureteropelvic junction obstruction Qualified Code(s): Q62.11 - Congenital occlusion of ureteropelvic junction Disposition: Admitted As Inpatient Condition on Discharge: Fair Referrals: Arun Scott MD [Primary Care Provider] - Time of Disposition: 03:27 - Critical Care Critical Care Time: No Attestation: On 02/15/21, the high probability of a clinically significant, sudden or life threatening deterioration of the following system(s) required my full and direct attention, intervention and personal management. The time I documented below is in addition to time spent performing reported procedures but includes the following listed in this critical care notation. Medical Decision Making - Medical Records Medical records reviewed: Yes: I reviewed the patient's medical records. - Maynor Inquiry Pt receiving controlled substance: No Vital Signs: 02/15/21 01:28 Temperature 97.6 F Temperature Source Oral Pulse Rate [Right Radial] 111 H Respiratory Rate 18 Blood Pressure [Right Arm] 165/97 H Blood Pressure Mean [Right Arm] 119 Blood Pressure Source [Right Arm] Automatic Cuff Blood Pressure Position [Right Arm] Supine 02 Sat by Pulse Oximetry 98 Oxygen Delivery Method Room Air - Lab Data Lab Results 02/15/21 01:36: Urine Color Yellow, Urine Appearance Clear, Urine pH 6.0, Ur Specific [place] >= 1.030, Urine Protein Negative, Urine Glucose (UA) Negative, Urine Ketones Negative, Urine Blood 2+, Urine Nitrate Negative, Urine Bilirubin Negative, Urine Urobilinogen 0.2, Ur Leukocyte Esterase Negative, Urine RBC 10-20, Amorphous Sediment Trace 02/15/21 01:50: WBC 11.2, RBC 5.37, Hgb 15.1, Hct 47.3, MCV 88.0, MCH 28.2, MCHC 32.0, RDW 13.8, Plt Count 290, MPV 7.7, Neut % (Auto) 75.2, Lymph % (Auto) 16.2, [place] % (Auto) 7.6, Eos % (Auto) 0.6, Baso % (Auto) 0.3, Neut # (Auto) 8.4 H, Lymph # (Auto) 1.8, [place] # (Auto) 0.9, Eos # (Auto) 0.1, Baso # (Auto) 0.0 02/15/21 01:50: Sodium 141, Potassium 4.3, Chloride 105, Carbon Dioxide 25, Anion Gap 15.3 H, BUN 19, Creatinine 1.30 H, Estimated Creat Clear 105, Estimated GFR 70, Est GFR ( Amer) 85, Glucose 112 H, Calcium 9.3, Total Bilirubin 0.4, AST 29, ALT 39, Alkaline Phosphatase 65, Total Protein 7.2, Albumin 4.3, Globulin 2.9, Albumin/Globulin Ratio 1.5 Result diagrams: 02/15/21 01:50 02/15/21 01:50 Orders (Tests/Meds): ED MEDICATIONS Generic Name Dose Route Start Last Admin Trade Name Freq PRN Reason Stop Dose Admin Sodium Chloride 1,000 mls @ 999 mls/hr 02/15/21 01:45 Sod Chlor 0.9% 1000ml Bag IV 02/15/21 02:45 .Q1H1M SHARMILA Discontinued Medications Generic Name Dose Route Start Last Admin Trade Name Freq PRN Reason Stop Dose Admin Ketorolac Tromethamine 15 mg 02/15/21 01:36 02/15/21 01:55 Ketorolac 30mg/Ml Vial IV 02/15/21 01:37 15 mg ONCE ONE Administration Ondansetron HCl 4 mg 02/15/21 02:04 02/15/21 02:10 Ondansetron 4mg/2ml Vial IV 02/15/21 02:05 4 mg ONCE ONE Administration ORDERS Category Date Time Status CT abdomen pelvis wo con Stat Cat Scan 02/15/21 02:24 Taken Medical Decision Narrative: In summary this is a 20-year-old male with history of cystine kidney stones presenting to the emergency department with left flank pain. Patient appears uncomfortable on arrival. Tachycardic to 111 bpm. Other vital signs within normal limits. Differential diagnoses include obstructing nephrolithiasis, nonobstructing stone, pyelonephritis. Will obtain CBC, CMP, urinalysis, CT stone protocol. Patient given 15 mg IV Toradol. Laboratory results show slightly elevated creatinine at 1.30. Patient's baseline within normal limits. No significant leukocytosis. Urinalysis shows red blood cells. No signs of infection. CT stone protocol shows a large obstructing kidney stone at the left UPJ. It measures 13
[2021-02-15 03:35] LABS: Coronavirus 19, PCR Not Detected (NotDetected); Influenza A, PCR Not Detected (NotDetected); Influenza B, PCR Not Detected (NotDetected)
--- NOTE | 2021-02-15 04:51 | PC.NURSE ---
PT ARRIVED TO FLOOR VIA W/C FROM ED W/STAFF AT [id number]
--- NOTE | 2021-02-15 07:48 | HMH.HP ---
*Admission Date: 02/15/21 *Chief complaint: Left flank pain *History of present illness: 20-year-old male with long history of kidney stones presented to the emergency department early this morning with left flank pain, nausea and vomiting. Patient had undergone lithotripsy for a left proximal ureter stone on February 13. Patient had a stent at that time but due to his personal history of some difficulty with stents he requested removal. Patient underwent successful lithotripsy of the 13 x 7 mm stone and was discharged home. Pain began late yesterday. Pain increased to the point where patient could no longer tolerate the pain and he had associated nausea and vomiting and return to the emergency department. Work-up has shown increased hydronephrosis on the left from left ureter obstruction.. Patient has been admitted for urologic consultation [facility] History I have reviewed the patient's past medical history: Yes Medical History: Reports:: Kidney Stones Denies:: Cancer, Diabetes Mellitus Type 1, Diabetes Mellitus Type 2, Internal Pacemaker, MRSA, Seizures *Have you ever received a pneumonia vaccine?: No *Have you received a flu vaccine this season?: No Other Medical History: Denies: Blood Transfusion Reaction Other Surgeries: Yes: No Previous Surgery, Other. No: Pacemaker Amputation: No Fractures: No - *Social History Smoking Status: Never smoker Alcohol Intake: never Substance Use Type: denies use *Occupational Status:: employed Housing: house Household Members: family *Travel in the last 8 weeks: None Family Hx:: No significant family history Review of Systems - Review of Systems Review of systems:: pertinent systems reviewed and negative unless documented below - *Neurologic Denies headache(s), Denies weakness Meds Home Medications Medication Instructions Recorded Confirmed Type No Known Home Medications 02/15/21 02/15/21 History Allergies Allergy/AdvReac Type Severity Reaction Status Date / Time No Known Allergies Allergy Verified 02/13/21 14:16 Exam Vital signs and Labs for Last 24 Hours: Temp Pulse Resp BP Pulse Ox 98.1 F 93 H 16 127/65 96 02/15/21 04:29 02/15/21 04:29 02/15/21 04:29 02/15/21 04:29 02/15/21 04:00 Laboratory Results - last 24 hr 02/15/21 01:36: Urine Color Yellow, Urine Appearance Clear, Urine pH 6.0, Ur Specific [place] >= 1.030, Urine Protein Negative, Urine Glucose (UA) Negative, Urine Ketones Negative, Urine Blood 2+, Urine Nitrate Negative, Urine Bilirubin Negative, Urine Urobilinogen 0.2, Ur Leukocyte Esterase Negative, Urine RBC 10-20, Amorphous Sediment Trace 02/15/21 01:50: WBC 11.2, RBC 5.37, Hgb 15.1, Hct 47.3, MCV 88.0, MCH 28.2, MCHC 32.0, RDW 13.8, Plt Count 290, MPV 7.7, Neut % (Auto) 75.2, Lymph % (Auto) 16.2, [place] % (Auto) 7.6, Eos % (Auto) 0.6, Baso % (Auto) 0.3, Neut # (Auto) 8.4 H, Lymph # (Auto) 1.8, [place] # (Auto) 0.9, Eos # (Auto) 0.1, Baso # (Auto) 0.0 02/15/21 01:50: Sodium 141, Potassium 4.3, Chloride 105, Carbon Dioxide 25, Anion Gap 15.3 H, BUN 19, Creatinine 1.30 H, Estimated Creat Clear 105, Estimated GFR 70, Est GFR ( Amer) 85, Glucose 112 H, Calcium 9.3, Total Bilirubin 0.4, AST 29, ALT 39, Alkaline Phosphatase 65, Total Protein 7.2, Albumin 4.3, Globulin 2.9, Albumin/Globulin Ratio 1.5 02/15/21 03:27: SARS-CoV-2 (PCR) Not detected, Influenza A Untype (PCR) Not detected, Influenza Type B (PCR) Not detected I & O for Last 24 hours: Intake & Output 02/12/21 02/13/21 02/14/21 02/15/21 11:59 11:59 11:59 11:59 Intake Total 1000 / 1000 Balance 1000 / 1000 Weight 180 lb 0.013 oz - Constitutional no acute distress - *Routine HEENT Exam Head: Present: normocephalic Eye: Present: EOMI, PERRL ENT: Present: mucous membranes moist - *Routine Neck Exam Present: supple. Absent: lymphadenopathy - *Routine Respiratory Exam Present: CTA bilaterally - *Routine Cardiovascular Exam Present: RRR - *Routine Abdominal
[2021-02-15 08:21] LABS: Chloride 107 mmol/L (98-107); Potassium 4.2 mmoL/L (3.5-5.1); Sodium 140 mmol/L (136-145)
[2021-02-15 08:24] LABS: Anion Gap 13.2 mEq/L (5-15); Basophils % 0.4 % (0.1-2.0); Blood Urea Nitrogen 18 mg/dl (9-20); Calcium 8.3 mg/dl (8.4-10.2); Carbon Dioxide 24 mmol/L (22.0-30.0); Creatinine Clearance Estimated 105 mL/min (50-200); Eosinophils # 0.1 K/mm3 (0.0-0.4); Eosinophils % 0.9 % (0.1-12.0); Estimated Glomerular Filt Rate 70 ml/min (>60); GFR (African American) 85 ML/MIN (>60); Glucose 91 mg/dl (74-100); Hematocrit 41.1 % (42.0-52.0); Lymphocytes # 1.5 K/mm3 (0.7-4.5); Lymphocytes % 18.6 % (10-50); Mean Corpuscular HGB Conc 31.5 g/dL (31.8-35.4); Mean Corpuscular Hemoglobin 27.6 pg (27.0-31.2); Mean Corpuscular Volume 87.8 fl (80-94); Mean Platelet Volume 8.1 fl (7.4-10.4); Monocytes # 0.7 K/mm3 (0.1-1.0); Monocytes % 8.4 % (1.7-9.3); Neutrophils # 5.7 K/mm3 (1.8-7.8); Neutrophils % 71.6 % (37.0-80.0); Platelet Count 216 K/mm3 (142-424); Red Blood Count 4.69 M/mm3 (4.60-6.20); Red Cell Distribution Width 13.7 % (11.5-17.5); White Blood Count 7.9 K/mm3 (4.5-13.0)
--- NOTE | 2021-02-15 08:38 | HMH.PHAVTE ---
[facility] Pharmacy VTE Monitoring - Patient Demographics Admission date: 02/15/21 Report Date: 02/15/21 Time: 08:38 Allergies/Adverse Reactions: Patient Allergies No Known Allergies Allergy (Verified 02/13/21 14:16) Height: 1.73 m Weight: 81.647 kg Patient Problems: Current Active Problems Ureterolithiasis (Acute) Left renal stone (Acute) Hydronephrosis (Acute) Obstruction of left ureteropelvic junction (UPJ) due to stone (Acute) - VTE Risk Labs: VTE Related Lab Results Hgb 15.1 g/dL (14.1-18.0) 02/15/21 01:50 Hct 47.3 % (42.0-52.0) 02/15/21 01:50 Plt Count 290 K/mm3 (142-424) 02/15/21 01:50 BUN 19 mg/dl (9-20) 02/15/21 01:50 Creatinine 1.30 mg/dl (0.66-1.25) H 02/15/21 01:50 Estimated Creat Clear 105 mL/min (50-200) 02/15/21 01:50 VTE Score: 1 - Prophylaxis VTE Prophylaxis Ordered?: Yes Types of VTE Prophylaxis: TEDS Knee High Location of Applied Device: Bilateral Lower Extremeties
[2021-02-15 09:06] LABS: Hemoglobin 12.9 g/dL (14.1-18.0)
--- NOTE | 2021-02-15 19:37 | PC.NURSE ---
PT IS AOX4, ABLE TO MAKE NEEDS KNOWN TO STAFF, DOES NOT REQUIRE O2 SUPPORT, C/O PAIN AND N/V THIS AM. VSS T/O SHIFT.
[2021-02-16] VITALS (19 sets, daily range): BP systolic 128–157; BP diastolic 71–103; PULSE 75–107; RESP 15–20; TEMP 36.3–36.9; O2SAT 95–100; BMI 26.5
--- NOTE | 2021-02-16 03:20 | PC.NURSE ---
A&OX4. TOLERATING RA WELL. NPO DIET SINCE 0000. PT UP INDEPENDENTLY IN ROOM. HAS C/O ABD PAIN AND NA X1 THUS FAR, TX PER MAR. ON REASSESSMENT PT ASLEEP IN BED. NO OTHER C/O AT THIS TIME, VSS WILL CONTINUE TO MONITOR.
--- NOTE | 2021-02-16 07:07 | HMH.ACPN2 ---
Internal Medicine - PN: Subj *Date: 02/16/21 *Time: 07:07 Interval history: Patient is remained stable. He has yet to pass the stone. Pain is being controlled with Toradol and morphine. Exam Vital signs and Labs for Last 24 Hours: Temp Pulse Resp BP Pulse Ox 98.2 F 107 H 18 134/80 97 02/16/21 04:00 02/16/21 04:00 02/16/21 04:00 02/16/21 04:00 02/16/21 04:00 Laboratory Results - last 24 hr 02/15/21 07:35: WBC 7.9 D, RBC 4.69, Hgb 12.9 L D, Hct 41.1 L, MCV 87.8, MCH 27.6, MCHC 31.5 L, RDW 13.7, Plt Count 216 D, MPV 8.1, Neut % (Auto) 71.6, Lymph % (Auto) 18.6, [place] % (Auto) 8.4, Eos % (Auto) 0.9, Baso % (Auto) 0.4, Neut # (Auto) 5.7, Lymph # (Auto) 1.5, [place] # (Auto) 0.7, Eos # (Auto) 0.1, Baso # (Auto) 0.0 02/15/21 07:35: Sodium 140, Potassium 4.2, Chloride 107, Carbon Dioxide 24, Anion Gap 13.2, BUN 18, Creatinine 1.30 H, Estimated Creat Clear 105, Estimated GFR 70, Est GFR ( Amer) 85, Glucose 91, Calcium 8.3 L I & O for Last 24 hours: Intake & Output 02/13/21 02/14/21 02/15/21 02/16/21 11:59 11:59 11:59 11:59 Intake Total 1000 / 1000 1725 / 1725 Balance 1000 / 1000 1725 / 1725 Weight 180 lb 0.013 oz 175 lb Narrative: Patient is comfortable at present. He still has left CVA tenderness. Left lower quadrant abdominal tenderness. Assessment and Plan (1) Obstruction of left ureteropelvic junction (UPJ) due to stone Status: Acute Category: Medical Code(s): N20.1 - Calculus of ureter (2) Ureterolithiasis Status: Acute Category: Medical Code(s): N20.1 - Calculus of ureter (3) Left ureteral calculus Status: Resolved Category: Medical Code(s): N20.1 - Calculus of ureter - Assessment and plan all Dx Assessment and Plan for all problems:: Urology consultation today with intervention for stone removal. Anticipate discharge this evening
--- NOTE | 2021-02-16 08:19 | PC.NURSE ---
Notified Dr. Peralta office of consult on pt.
[2021-02-16 10:03] LABS: Coronavirus 19, PCR Not Detected (NotDetected); Influenza A, PCR Not Detected (NotDetected); Influenza B, PCR Not Detected (NotDetected)
--- NOTE | 2021-02-16 10:14 | P.PN_ITS ---
[facility] Anesthesia Checklist - Patient Identification Patient Identification: Arm Band, Verbal (Name & ) - Structural Data Admitted From: Inpatient Planned Operative Procedure/s: Ureteroscopy Consent for Planned Operative Procedure(s) Verified: Yes Verified Documents: Surgical Consent - NPO Status Verified Time NPO: 00:00 - Chart Verification Results Verified: CBC, BMP - Additional verifications Anesthesia Reactions: No Hx Blood Transfusions: No Blood Transfusion Reaction: No - Cardiovascular Assessment Heart Sounds: S1 & S2 - Airway Assessment C-Spine Mobility Assessed: Yes TMJ Mobility Assessed: Yes Dentition: Good Dentition - Neurological Assessment Level of Consciousness: Awake, Alert, Appropriate - Anesthesia Plan Anesthesia Risk discussed: Yes ASA Class: II Anesthesia Type: General [facility] History I have reviewed the patient's past medical history: Yes Medical History: Reports:: Kidney Stones Denies:: Cancer, Diabetes Mellitus Type 1, Diabetes Mellitus Type 2, Internal Pacemaker, MRSA, Seizures *Have you ever received a pneumonia vaccine?: No *Have you received a flu vaccine this season?: No Other Medical History: Denies: Blood Transfusion Reaction Anesthesia experience/problems:: no issues Other Surgeries: Yes: No Previous Surgery, Other. No: Pacemaker Amputation: No Fractures: No - *Social History Smoking Status: Never smoker Alcohol Intake: never Substance Use Type: denies use *Occupational Status:: employed Housing: house Household Members: family *Travel in the last 8 weeks: None Family Hx:: No significant family history
--- NOTE | 2021-02-16 12:44 | HMH.ANESI ---
[facility] Anesthesia Record Part I Intake, IV Amount: 650 Estimated blood loss (mL): 5 Urine output (mL): 0 Blood Products used (#): none Blood Pressure: 150/103 SaO2: 99 Pulse Rate: 96 Respiratory Rate: 18 Temperature: 97.4 F Patient is:: Awake, Drowsy, Stable Stable to PACU at:: 12:44
--- NOTE | 2021-02-16 12:46 | XR_ITS ---
PROCEDURE: XR KUB CLINICAL INDICATION: STENT PLACEMENT IN OR COMPARISON: No exams were available for comparison FINDINGS: Fluoroscopy time: 2.05 minutes. Left ureteral stent has been placed with 2 images submitted showing proximal aspect of the stent in the region of the left renal pelvis and the distal aspect in the region of the urinary bladder. IMPRESSION: Status post left ureteral stent placement with fluoroscopic assistance Dictated by: Timmy Perez MD 02/16/2021 12:59 Timmy Perez MD in OV 02/16/2021 12:59
--- NOTE | 2021-02-16 13:38 | HMH.ANESII ---
[facility] Anesthesia Record Part II Discharge Time: 13:14 Destination: Medical Surgical Department PACU nurse assessment reviewed?: Yes Patient Condition:: Good Anesthesia Complications:: None Swallowing reflex intact?: Yes Cyanosis?: No Blood Pressure: 154/89 Pulse Rate: 94 Temperature: 97.4 F Mental Status: Alert & Oriented Pain level:: 0 Nausea and/or vomitting:: None Intake, IV Amount: 0
--- NOTE | 2021-02-16 13:38 | HMH.CONS ---
*Admission Date: 02/15/21 *Reason for consult:: Right proximal ureteral stone *History of present illness: Right ESWL of a 13 x 7 mm stone on Tuesday. He had an indwelling stent placed prior to his ESWL procedure and this was removed at the time of the ESWL. He represented last evening with right-sided flank pain. CT scan shows that the previously noted stone is about the same size and apparently has been refractory to the ESWL therapy. Patient was admitted for pain control. He is afebrile his pain has been controlled with pain medication. His creatinine was 1.3 his white count was 7.9. The CT scan showed a stone is now 7 x 10 mm and slightly smaller than prior to the ESWL. [facility] History Medical History: Reports:: Kidney Stones Denies:: Cancer, Diabetes Mellitus Type 1, Diabetes Mellitus Type 2, Internal Pacemaker, MRSA, Seizures *Have you ever received a pneumonia vaccine?: No *Have you received a flu vaccine this season?: No Other Medical History: Denies: Blood Transfusion Reaction Anesthesia experience/problems:: no issues Other Surgeries: Yes: No Previous Surgery, Other. No: Pacemaker Amputation: No Fractures: No - *Social History Smoking Status: Never smoker Alcohol Intake: never Substance Use Type: denies use *Occupational Status:: employed Housing: house Household Members: family *Travel in the last 8 weeks: None Family Hx:: No significant family history Review of Systems - Review of Systems Review of systems:: pertinent systems reviewed and negative unless documented below - *Neurologic Denies headache(s), Denies weakness Meds Home Medications Medication Instructions Recorded Confirmed Type No Known Home Medications 02/15/21 02/15/21 History Allergies Allergy/AdvReac Type Severity Reaction Status Date / Time No Known Allergies Allergy Verified 02/13/21 14:16 Exam Vital signs and Labs for Last 24 Hours: Temp Pulse Resp BP Pulse Ox 97.4 F L 94 H 15 154/89 H 95 02/16/21 13:38 02/16/21 13:38 02/16/21 13:14 02/16/21 13:38 02/16/21 13:14 Laboratory Results - last 24 hr 02/16/21 09:52: SARS-CoV-2 (PCR) Not detected, Influenza A Untype (PCR) Not detected, Influenza Type B (PCR) Not detected I & O for Last 24 hours: Intake & Output 02/13/21 02/14/21 02/15/21 02/16/21 23:59 23:59 23:59 23:59 Intake Total 2725 / 2725 650 / 650 Balance 2725 / 2725 650 / 650 Weight 81.647 kg 79.379 kg - Constitutional no acute distress - *Routine HEENT Exam Head: Present: normocephalic Eye: Present: EOMI, PERRL ENT: Present: mucous membranes moist - *Routine Neck Exam Present: supple. Absent: lymphadenopathy - *Routine Respiratory Exam Absent: accessory muscle use - *Routine Cardiovascular Exam Absent: JVD - *Routine Abdominal Exam Present: soft. Absent: tenderness - *Routine Extremities Exam Absent: cyanosis, clubbing, edema - *Routine Skin Exam Present: warm. Absent: rash - *Routine Neurological Exam Present: alert, oriented X3 Internal Medicine - CN: Reslt - Labs CBC & Chem 7: 02/15/21 07:35 02/15/21 07:35 Assessment and Plan (1) Obstruction of left ureteropelvic junction (UPJ) due to stone Status: Acute Category: Medical Code(s): N20.1 - Calculus of ureter (2) Ureterolithiasis Status: Acute Category: Medical Code(s): N20.1 - Calculus of ureter (3) Left ureteral calculus Status: Resolved Category: Medical Code(s): N20.1 - Calculus of ureter 20-year-old white male with recurrent left flank pain due to a 7 x 10 mm proximal ureteral calculus. He is status post left ESWL 3 days ago and the stent was removed at that time as well. I discussed the findings with the patient. He has known cystine stones which are very hard stones. I recommended we proceed with left ureteroscopy laser lithotripsy and replacement of the stent. He is in agreement and we will set that up today.
--- NOTE | 2021-02-16 13:57 | P.OP_ITS ---
Date of procedure: 02/16/21 Pre-op Diagnosis:: 10 x 7 mm left proximal ureteral stone Post-op Diagnosis:: Same Procedure performed:: Left ureteroscopy, laser lithotripsy, stone extraction, left stent placement Surgeon:: Kelvin Peralta MD [employer] CONSULTANT:: Other (marquis soriano) Anesthesia: GETA Estimated blood loss (mL): 0 Clinical Note:: 20-year-old white male with left renal colic A 7 x 10 mm stone in his proximal left ureter. He is status post left ESWL of the stone 3 days ago. Stent was removed at that time. Operative findings:: 13 x 7 mm stone in the left proximal ureter was noted. It was pushed back into the left kidney and laser lithotripsy performed. Operative note:: Patient taken to the operating room after informed consent was obtained. Placed on the operating table in the supine position and general anesthesia administered. Antibiotics and sequential compression devices placed. He was prepped and draped in the standard surgical fashion and placed into the dorsolithotomy position. 20 Jose passed into the urethra and into the bladder without difficulty. The bladder was examined and that was within normal limits. A guidewire was passed into the left ureteral orifice and by the stone without difficulty. A second wire was also placed without difficulty. The cystoscope then removed and our flexible ureteroscope was passed over one of the wires and that wire removed. The scope was passed up to the level of the stone and her 200 nm laser fiber was passed through the scope and we began treating the stone but it was very mobile and rebounded back into the kidney. It is actually easier to treat in the kidney and we were able to break it into smaller fragments and 1 of these fragments was attempted to be removed with use of a 1.9 [place] stone basket but the proximal ureter was too narrow. We pushed the stone back up and treated the stones at a higher frequency rate and broke them up into smaller fragments. We removed 1 of these fragments and then removed the ureteroscope. The cystoscope was replaced and a 6 x 24 [place] stent was passed over the guidewire and the guidewire removed. A good curl was noted proximally and distally. Patient tolerated procedure well discharged to recovery in stable condition. Condition: stable Disposition: PACU Specimens:: Kidney stone Complications:: None
--- NOTE | 2021-02-16 16:25 | PC.NURSE ---
pt has done well since returning to the floor. vss. pt has been able to urinate since coming back to the floor. urine is cloudy and dark yelllow. no other acute changes or complaints, will continue to monitor.
--- NOTE | 2021-02-16 17:12 | HMH.DCSUM ---
General - General Admission date:: 02/15/21 Discharge date: 02/16/21 HPI HPI: 20-year-old male with long history of kidney stones presented to the emergency department early this morning with left flank pain, nausea and vomiting. Patient had undergone lithotripsy for a left proximal ureter stone on February 13. Patient had a stent at that time but due to his personal history of some difficulty with stents he requested removal. Patient underwent successful lithotripsy of the 13 x 7 mm stone and was discharged home. Pain began late yesterday. Pain increased to the point where patient could no longer tolerate the pain and he had associated nausea and vomiting and return to the emergency department. Work-up has shown increased hydronephrosis on the left from left ureter obstruction.. Patient has been admitted for urologic consultation Hospital Course Hospital Course: Patient had urologic consultation on February 16. Patient was taken to the OR for the following procedure: Left ureteroscopy, laser lithotripsy, stone extraction, left stent placement. Post procedurally patient did well. Patient was discharged home in the evening of February 16 and will follow up with Dr. Peralta. Objective Vital signs: Temp Pulse Resp BP Pulse Ox 97.4 F L 94 H 15 154/89 H 95 02/16/21 13:38 02/16/21 13:38 02/16/21 13:14 02/16/21 13:38 02/16/21 13:14 Results Labs on day of discharge: Labs from last 24 hours 02/16/21 09:52 SARS-CoV-2 (PCR) Not detected Influenza A Untype (PCR) Not detected Influenza Type B (PCR) Not detected DS: Diagnosis - Discharge Diagnosis (1) Obstruction of left ureteropelvic junction (UPJ) due to stone Status: Acute (2) Ureterolithiasis Status: Acute (3) Left ureteral calculus Status: Resolved Discharge Plan - Patient Discharge Instructions ACTIVITY: Continue current activity DIET: continue same diet Patient Instructions: Kidney Stones -- Adult, DI for Kidney Stones, Surgical Site Infection, Laser Lithotripsy, DI for Ureteroscopy - Follow up Plan Follow up with: Kelvin Peralta MD [Staff Physician] - Disposition: Home, Self-Care Condition at discharge:: Improved Home Medications: Home Medications Medication Instructions Recorded Confirmed Type Ketorolac Tromethamine [Toradol 10 mg PO Q6HP PRN #20 tab MDD 02/16/21 Rx 10mg tablet] 40mg/day Prescriptions/Medication Reconciliation: New Ketorolac Tromethamine [Toradol 10mg tablet] 10 mg PO Q6HP PRN #20 tab MDD 40mg/day PRN Reason: Moderate To Severe Pain - Problem Reconciliation Problems Reviewed?: Yes
[2021-07-03 17:33] LABS: Size 4X4
== END 2021-02-16 17:41 | disposition home or self-care (01) | DRG 661 ==
LOC: ER 03:31 → 2ND 10:33
PROVIDERS: Urology; Admitting Provider Family Medicine; Emergency Provider Emergency Medicine; PCP Family Medicine; Visit Provider Family Medicine
PROC: 0TJ98ZZ Inspection of Ureter, Via Natural or Artificial Opening Endoscopic (ICD-10-PCS; CPT 52351; principal; 2021-02-16 10:00)
DX: N13.2 Hydronephrosis with renal and ureteral calculous obstruction (principal); Z87.442 Personal history of urinary calculi; Z20.822 Contact with and (suspected) exposure to COVID-19
CPT/HCPCS: 52356; 52352; 36415; 74018; 74176; 76000; 80048; 80053; 81001; 82370; 85025; 96365; 96374; 96375; 99284; C2617; C9803; J2405; U0003; U0005

== ENCOUNTER → 2021-02-20 15:23 | Outpatient (CLI) | payer BC, SELFPAY ==
--- NOTE | 2021-02-20 15:25 | XR_ITS ---
PROCEDURE: XR KUB CLINICAL INDICATION: kidney stone COMPARISON: CR XR KUB from 02/16/2021 FINDINGS: There is a left ureteral stent in place. Stones are present in the left kidney and there are numerous small calculi in the proximal left ureter/UPJ. IMPRESSION: Left ureteral stent in place with nephrolithiasis and numerous small stones in the proximal left ureter Dictated by: Timmy Perez MD 02/20/2021 15:42 Timmy Perez MD in [place] 02/20/2021 15:42
== END ==
PROVIDERS: PCP Family Medicine; Visit Provider Urology
DX: N20.0 Calculus of kidney (principal)
CPT/HCPCS: 74018

== ENCOUNTER → 2021-03-02 14:25 | Outpatient (CLI) | payer BC, SELFPAY ==
--- NOTE | 2021-03-02 14:27 | XR_ITS ---
PROCEDURE: XR KUB CLINICAL INDICATION: kidney stone COMPARISON: CT CT ABDOMEN PELVIS WO CON from 02/15/2021 FINDINGS: Gas pattern-The bowel gas pattern is unremarkable. There is a moderate amount stool and gas in the ascending and transverse colon. There are 2 calculi seen sitting just beneath the spinous process of L3 on the left side 1 of which is probably the calculus seen on the CT exam 02/15/2021 no obvious obstruction. Another small calcification which is seen on top of the other calculus presumably coming from the lower pole of the left kidney as there were 2 calculi seen at this location on the CT exam. A small calculus remains projecting over lower pole left kidney. IMPRESSION: There are 2 mid left ureteral calculi as noted Dictated by: Dr. Parker Olmos MD 03/03/2021 08:53 Dr. Parker Olmos MD in [place] 03/03/2021 08:53
== END ==
PROVIDERS: PCP Family Medicine; Visit Provider Urology
DX: N20.0 Calculus of kidney (principal)
CPT/HCPCS: 74018

== ENCOUNTER → 2021-03-05 12:50 | Outpatient (CLI) | payer BC, SELFPAY | PROVIDERS: Visit Provider Urology | DX: Z01.812 Encounter for preprocedural laboratory examination (principal); Z11.52 Encounter for screening for COVID-19; N20.1 Calculus of ureter | CPT/HCPCS: C9803; U0003; U0005 ==

== ENCOUNTER 2021-03-06 09:33 | Day surgery (SDC) | payer BC, SELFPAY ==
[2021-03-03 12:06] VITALS: BMI 30.9
[2021-03-06] VITALS (10 sets, daily range): BP systolic 111–149; BP diastolic 70–91; PULSE 64–89; RESP 16–18; TEMP 36.1–36.6; O2SAT 95–98
--- NOTE | 2021-03-06 | XR_ITS ---
PROCEDURE: XR KUB CLINICAL INDICATION: URETEROSCOPY COMPARISON: CR XR KUB from 03/02/2021 FINDINGS: Fluoroscopy time: 2.04 minutes. Single images submitted with the C-arm demonstrating a left ureteral stent in place with the proximal aspect overlying the left upper quadrant. The distal aspect of the catheter is not covered on this image. IMPRESSION: Status post fluoroscopic assisted ureteroscopy and stent placement Dictated by: Timmy Perez MD 03/09/2021 07:26 Timmy Perez MD in [place] 03/09/2021 07:26
[2021-03-06 10:02] LABS: Basophils # 0.1 K/mm3 (0-0.2); Basophils % 1.1 % (0.1-2.0); Eosinophils # 0.1 K/mm3 (0.0-0.4); Eosinophils % 1.9 % (0.1-12.0); Hematocrit 47.6 % (42.0-52.0); Hemoglobin 15.4 g/dL (14.1-18.0); Lymphocytes # 1.8 K/mm3 (0.7-4.5); Lymphocytes % 26.3 % (10-50); Mean Corpuscular HGB Conc 32.4 g/dL (31.8-35.4); Mean Corpuscular Hemoglobin 27.8 pg (27.0-31.2); Mean Corpuscular Volume 85.7 fl (80-94); Mean Platelet Volume 7.9 fl (7.4-10.4); Monocytes # 0.5 K/mm3 (0.1-1.0); Monocytes % 7.2 % (1.7-9.3); Neutrophils # 4.4 K/mm3 (1.8-7.8); Neutrophils % 63.5 % (37.0-80.0); Platelet Count 337 K/mm3 (142-424); Red Blood Count 5.55 M/mm3 (4.60-6.20); Red Cell Distribution Width 12.9 % (11.5-17.5); White Blood Count 6.9 K/mm3 (4.5-13.0)
--- NOTE | 2021-03-06 10:04 | HMH.ANESCL ---
[facility] Anesthesia Checklist - Patient Identification Patient Identification: Arm Band, Verbal (Name & ) - Structural Data Admitted From: Home Planned Operative Procedure/s: Left Ureteroscopy Consent for Planned Operative Procedure(s) Verified: Yes Verified Documents: Surgical Consent - NPO Status Verified Time NPO: 00:00 - Additional verifications Anesthesia Reactions: No Hx Blood Transfusions: No Blood Transfusion Reaction: No - Cardiovascular Assessment Heart Sounds: S1 & S2 - Airway Assessment C-Spine Mobility Assessed: Yes TMJ Mobility Assessed: Yes Dentition: Good Dentition - Neurological Assessment Level of Consciousness: Awake, Alert, Appropriate - Anesthesia Plan Anesthesia Risk discussed: Yes ASA Class: II Anesthesia Type: General [facility] History I have reviewed the patient's past medical history: Yes Medical History: Reports:: Kidney Stones Denies:: Cancer, Diabetes Mellitus Type 1, Diabetes Mellitus Type 2, Internal Pacemaker, MRSA, Seizures *Have you ever received a pneumonia vaccine?: No *Have you received a flu vaccine this season?: No Other Medical History: Denies: Blood Transfusion Reaction Anesthesia experience/problems:: no issues Other Surgeries: Yes: No Previous Surgery, Other. No: Pacemaker Amputation: No Fractures: No - *Social History Last grade of school completed: High school graduate Smoking Status: Never smoker Alcohol Intake: never Substance Use Type: denies use *Occupational Status:: employed Housing: house Household Members: family *Travel in the last 8 weeks: None Family Hx:: No significant family history
[2021-03-06 10:08] LABS: Chloride 104 mmol/L (98-107); Potassium 4.5 mmoL/L (3.5-5.1); Sodium 143 mmol/L (136-145)
[2021-03-06 10:11] LABS: Anion Gap 16.5 mEq/L (5-15); Blood Urea Nitrogen 20 mg/dl (9-20); Calcium 9.8 mg/dl (8.4-10.2); Carbon Dioxide 27 mmol/L (22.0-30.0); Creatinine Clearance Estimated 83 mL/min (50-200); Estimated Glomerular Filt Rate 55 ml/min (>60); GFR (African American) 67 ML/MIN (>60); Glucose 93 mg/dl (74-100)
--- NOTE | 2021-03-06 12:15 | HMH.ANESI ---
[facility] Anesthesia Record Part I Intake, IV Amount: 500 Estimated blood loss (mL): 0 Urine output (mL): 0 Blood Pressure: 112/71 SaO2: 98 Pulse Rate: 64 Respiratory Rate: 16 Temperature: 97.4 F Patient is:: Drowsy Stable to PACU at:: 12:13
--- NOTE | 2021-03-06 12:57 | P.OP_ITS ---
Date of procedure: 03/06/21 Pre-op Diagnosis:: Left ureteral calculi status post left ESWL Post-op Diagnosis:: Left ureteral calculi, left renal calculi. Procedure performed:: Left ureteroscopy, laser lithotripsy, stone extraction, left stent placement Surgeon:: Kelvin Peralta MD VENEER GLUE SPREADER:: Catalina Montesinos Anesthesia: LMA Estimated blood loss (mL): 0 Clinical Note:: Patient is a 20-year-old white male with history of cystine stones. He underwent left ESWL a month ago without breakage of the stone. He has undergone subsequent left ureteroscopy stent placement and now has another obstructing stone. Operative findings:: Left ureteral calculi and left renal calculi Operative note:: Patient taken to the operating room after informed consent was obtained. Was placed on the operating table in the supine position and prepped and draped in the standard surgical fashion. IV antibiotics and sequential compression devices placed. Patient been placed into the dorsal lithotomy position and prepped and draped in the standard surgical fashion. The 22 [place] cystoscope passed into the urethra and into the bladder without difficulty. The bladder was examined in a systematic fashion and some small stone debris was noted otherwise normal. The ureteral orifices in their normal anatomic position. A 0.035 guidewire was passed into the left ureteral orifice and passed into the left renal pelvis without difficulty. The cystoscope then removed and our semirigid ureteroscope was passed into the left ureter and up to the level of a proximal ureteral stone. The stone was fragmented with a 200 nm laser fiber and the stone fragments removed. Fluoroscopy revealed the stone even higher near the UPJ so the ureteroscope was removed and our flexible ureteroscope was passed over a second guidewire and the guidewire removed. Flexible scope passed up to the renal pelvis and there were some significant stones present in the left lower pole calyces. A 200 nm laser fiber was used to fragment the stones into smaller fragments. The scope then removed and our cystoscope was replaced and a 4.8 x 24 [place] stent passed over the guidewire and the guidewire removed. A good curl was noted proximally and distally. Urojet placed into the urethra. Patient tolerated well. Condition: stable Disposition: PACU Specimens:: Stone fragments were not sent Complications:: None
[2021-03-09 08:29] VITALS: BP 143/89; PULSE 81; TEMP 36.1
--- NOTE | 2021-03-09 08:29 | HMH.ANESII ---
[facility] Anesthesia Record Part II Discharge Time: 12:43 Destination: Surgical Day Care (OP Surgery) PACU nurse assessment reviewed?: Yes Patient Condition:: Good Anesthesia Complications:: None Swallowing reflex intact?: Yes Cyanosis?: No Blood Pressure: 143/89 Pulse Rate: 81 Temperature: 97 F Mental Status: Alert & Oriented Pain level:: 0 Nausea and/or vomitting:: None Intake, IV Amount: 0
== END 2021-03-06 13:30 | disposition home or self-care (01) ==
PROVIDERS: PCP Family Medicine; Visit Provider Urology
PROC: (CPT 52352; principal; 2021-03-06 10:30)
DX: N20.1 Calculus of ureter (principal); N20.0 Calculus of kidney
CPT/HCPCS: 50590; 52352; 74018; 76000; 80048; 85025; 96374; C1769; C2617; J2405

== ENCOUNTER → 2021-03-10 11:00 | Outpatient (CLI) | payer BC, SELFPAY ==
--- NOTE | 2021-03-10 11:09 | XR_ITS ---
PROCEDURE: XR KUB CLINICAL INDICATION: kidney stone COMPARISON: CR XR KUB from 03/02/2021 CR XR KUB from 03/06/2021 FINDINGS: There is a left ureteral stent in place. Proximal aspect overlies the mid polar region of the left kidney and the distal aspect overlies the region bladder. No obvious ureteral calculus. A 4 mm stone overlies the lower pole of the left kidney medially IMPRESSION: Left ureteral stent in place with left nephrolithiasis. Dictated by: Timmy Perez MD 03/10/2021 17:49 Timmy Perez MD in [place] 03/10/2021 17:49
== END ==
PROVIDERS: PCP Family Medicine; Visit Provider Urology
DX: N20.0 Calculus of kidney (principal)
CPT/HCPCS: 74018

== ENCOUNTER → 2021-03-24 15:34 | Outpatient (CLI) | payer BC, SELFPAY ==
--- NOTE | 2021-03-24 15:37 | XR_ITS ---
PROCEDURE: XR KUB CLINICAL INDICATION: KIDNEY STONE ON LT SIDE COMPARISON: CT CT ABDOMEN PELVIS WO CON from 02/15/2021 CR XR KUB from 03/10/2021 FINDINGS: Left ureteral stent has been removed. Faint opacity is noted along the lower pole of the left kidney suggesting left nephrolithiasis at approximately 4 mm. No obvious ureteral calculi IMPRESSION: Left nephrolithiasis with interval removal of the left ureteral stent Dictated by: Timmy Perez MD 03/25/2021 07:46 Timmy Perez MD in [place] 03/25/2021 07:46
== END ==
PROVIDERS: PCP Family Medicine; Visit Provider Family Medicine
DX: N20.0 Calculus of kidney (principal)
CPT/HCPCS: 74018

== ENCOUNTER → 2021-04-21 10:20 | Outpatient (CLI) | payer BC, SELFPAY | PROVIDERS: PCP Family Medicine; Visit Provider Nurse Practitioner | DX: U07.1 COVID-19 (principal) | CPT/HCPCS: C9803; U0003; U0005 ==

== ENCOUNTER → 2021-06-30 12:41 | Outpatient (CLI) | payer SELFPAY | PROVIDERS: PCP Family Medicine; Visit Provider Nurse Practitioner | DX: Z20.822 Contact with and (suspected) exposure to COVID-19 (principal) | CPT/HCPCS: C9803; U0003; U0005 ==

== ENCOUNTER → 2021-08-25 11:06 | Outpatient (CLI) | payer BC, SELFPAY ==
--- NOTE | 2021-08-25 11:18 | XR_ITS ---
FINAL REPORT CLINICAL HISTORY: kidney stone- left side COMPARISON: 03/24/2021 FINDINGS: A single view of the abdomen was obtained. There is a nonobstructive bowel gas pattern. There is moderate to large amount of retained stool. There are no abnormally dilated loops of small bowel. There are no abnormal calcifications. IMPRESSION: Nonobstructive bowel gas pattern with a moderate to large amount of retained stool. Reviewed, Interpreted and Dictated by Rd Goncalves III, MD Transcribed by Melodie Hernandez Authenticated by Rd Goncalves III, MD on 08/25/2021 12:36:19 PM [facility]
== END ==
PROVIDERS: PCP Family Medicine; Visit Provider Nurse Practitioner Family
DX: N20.0 Calculus of kidney (principal); N20.1 Calculus of ureter
CPT/HCPCS: 74018

== ENCOUNTER 2021-08-27 17:46 | Emergency (ER) | payer BC, SELFPAY ==
[2021-08-27 17:47] VITALS: BP 146/89; PULSE 126; RESP 21; TEMP 37.6; O2SAT 98; BMI 25.9
[2021-08-27 18:56] LABS: UTC Influenza A Antigen Positive (Negative); UTC Influenza B Antigen Negative (Negative)
--- NOTE | 2021-08-27 19:09 | HMH.EDUTC ---
[facility] Disposition Clinical Impression: Influenza Disposition: Home, Self-Care Condition on Discharge: Good Instructions: Influenza, DI for Influenza -- Adult, Oseltamivir Additional Instructions: ? Start Tamiflu today if you are going to take it. Discussed risk and possible benefits. ? Lots of rest ? Increase Fluids water, Gatorade, powerade, pedialyte,if /toddler/child ? Alternate Tylenol and / or ibuprofen as discussed for fever, aches, chills Follow up IMMEDIATELY with your family doctor for new or worsening Symptoms OR no noticeable improvement over the next 48-72 hours, 911 for difficulty or breathing ? You or your child area contagious until no fever, aches, chills for 24 hours with medication for symptoms ? Help Prevent the spread of influenza: ? Wash your hands often. Use soap and water. Wash your hands after you use the bathroom, change a child's diapers, or sneeze. Wash your hands before you prepare or eat food. Use gel hand cleanser that has 60% alcohol, when soap and water are not available. Do not touch your eyes, nose, or mouth unless you have washed your hands first. ? Cover your mouth when you sneeze or cough. Cough into a tissue or the bend of your arm. If you use a tissue, throw it away immediately and wash your hands. ? Clean shared items with a germ-killing sanitation truck cleaner. Clean table surfaces, doorknobs, and light switches. Do not share towels, silverware, and dishes with people who are sick. Wash bed sheets, towels, silverware, and dishes with soap and water. ? Wear a mask over your mouth and nose if you are sick. The face mask may help protect others from becoming infected with the flu. Wear the mask when in common areas of your home or if you seek care with a healthcare provider. ? Stay away from others if you are sick. Stay at home until 24 hours after your fever and symptoms are gone. Prescriptions: Oseltamivir Phosphate [Tamiflu 75mg Capsule] 75 mg PO BID #10 cap Transmission Status: Pending to [facility] Referrals: Arun Scott MD [Primary Care Provider] - As needed Forms: Work/School Release Time of Disposition: 19:14 Medical Decision Making - Maynor Inquiry Pt receiving controlled substance: No Maynor was queried for this patient: No Vital Signs: 08/27/21 17:47 Temperature 99.6 F Temperature Source Oral Pulse Rate [Left Radial] 126 H Respiratory Rate 21 Blood Pressure [Right Arm] 146/89 H Blood Pressure Mean [Right Arm] 108 Blood Pressure Source [Right Arm] Automatic Cuff Blood Pressure Position [Right Arm] Sitting 02 Sat by Pulse Oximetry 98 Oxygen Delivery Method Room Air - Lab Data Lab results reviewed: Yes: I reviewed the patient's lab results. Lab Results 08/27/21 18:49: Influenza Type A Ag Positive A, Influenza Type B Ag Negative Orders (Tests/Meds): ORDERS Category Date Time Status Covid-19 Nasal PCR ([facility]) Routine Lab 08/27/21 18:50 Received [facility] HPI - General Chief complaint: Back Pain/Injury Stated complaint: covid test Time Seen by Provider: 08/27/21 19:09 Mode of Arrival: Ambulatory Limitations: No Limitations Description of Symptoms (Recalled from Triage Doc. by RN): BODY ACHES, HEADACHE, CHILLS, FEVER X 3 DAYS HEENT Symptoms (Recalled from RN notes): Yes Resp Symptoms (Recalled from RN notes): No Skin Symptoms (Recalled from RN notes): No MS Symptoms (Recalled from RN notes): Yes Functional Status (Recalled from RN notes): N/A - History of Present Illness Provider Complaint: Patient states that he started feeling bad yesterday with body aches, chills, headache States that today he has continued not to feel well and feeling achy all over with fever so he came in to get checked worried that he may have flu or COVID - Related Data Previous Rx's Medication Instructions Recorded Ketorolac Tromethamine [Toradol 10 mg PO Q6HP PRN #20 tab MDD 02/16/21 10mg tablet] 40mg/day Hydrocod/Acet 5/325 mg [[place] 1 tab PO Q4HP PRN #14
[2021-08-27 19:13] VITALS: BP 146/89; PULSE 126; RESP 19; TEMP 37.6; O2SAT 98
== END 2021-08-27 19:20 | disposition home or self-care (01) ==
PROVIDERS: Emergency Provider Nurse Practitioner; PCP Family Medicine
DX: J10.1 Influenza due to other identified influenza virus with other respiratory manifestations (principal)
CPT/HCPCS: 87804; 99212; C9803; G0463; U0003; U0005

== ENCOUNTER 2021-10-14 19:12 | Observation (INO) | payer BC, SELFPAY ==
[2021-10-14] VITALS (7 sets, daily range): BP systolic 119–161; BP diastolic 57–112; PULSE 68–104; RESP 14–22; TEMP 36.5–37.1; O2SAT 95–99; BMI 30.1; BMI 32.5
--- NOTE | 2021-10-14 19:39 | CT_ITS ---
PROCEDURE INFORMATION: Exam: CT Abdomen And Pelvis Without Contrast Exam date and time: 10/14/2021 7:48 PM Age: 21 years old Clinical indication: Abdominal pain; Localized; Other: Back; Additional info: Poss kidney stone TECHNIQUE: Imaging protocol: Computed tomography of the abdomen and pelvis without contrast. Radiation optimization: All CT scans at this facility use at least one of these dose optimization techniques: automated exposure control; mA and/or kV adjustment per patient size (includes targeted exams where dose is matched to clinical indication); or iterative reconstruction. COMPARISON: CT ABDOMEN PELVIS WO CON 02/15/2021 2:34 AM FINDINGS: Liver: Parenchymal enhancement is not evaluated without contrast. No hepatomegaly. Gallbladder and bile ducts: No calcified stones. No ductal dilation. Pancreas: Parenchymal enhancement is not evaluated without contrast. No ductal dilation. Spleen: There are multiple splenic calcifications likely on the basis of prior granulomatous exposure. Adrenal glands: No mass. Kidneys and ureters: Punctate nonobstructing right renal calcification. Mild to moderate left-sided hydronephrosis with 5 mm calcification within the proximal left ureter near the UPJ. Stomach and bowel: No obstruction. No mucosal thickening. Appendix: No evidence of appendicitis. Intraperitoneal space: No free air. No significant fluid collection. Vasculature: Limited evaluation without contrast. No abdominal aortic aneurysm. Lymph nodes: No enlarged lymph nodes. Urinary bladder: No acute abnormality. Reproductive: No acute abnormality. Bones/joints: No acute fracture. Soft tissues: Limited evaluation without contrast. No significant soft tissue swelling. IMPRESSION: Mild to moderate left-sided hydronephrosis with 5 mm calcification within the proximal left ureter near the UPJ.
--- NOTE | 2021-10-14 20:08 | HMH.EDNVD ---
ED Disposition Clinical Impression: Renal colic on left side, Intractable pain Disposition: Admitted as Observation Condition on Discharge: Good Referrals: Arun Scott MD [Primary Care Provider] - - Critical Care Critical Care Time: No Attestation: On 10/14/21, the high probability of a clinically significant, sudden or life threatening deterioration of the following system(s) required my full and direct attention, intervention and personal management. The time I documented below is in addition to time spent performing reported procedures but includes the following listed in this critical care notation. Medical Decision Making - Medical Records Medical records reviewed: Yes: I reviewed the patient's medical records. - Maynor Inquiry Pt receiving controlled substance: No Vital Signs: 10/14/21 19:32 Temperature 97.7 F Temperature Source Oral Pulse Rate [Left] 104 H Respiratory Rate 22 Blood Pressure [Right Arm] 161/112 H Blood Pressure Mean [Right Arm] 128 02 Sat by Pulse Oximetry 97 Oxygen Delivery Method Room Air - Lab Data Lab results reviewed: Yes: I reviewed the patient's lab results. Lab Results 10/14/21 19:17: Urine Color Yellow, Urine Appearance Sl cloudy, Urine pH 6.0, Ur Specific [place] >= 1.030, Urine Protein 2+, Urine Glucose (UA) Negative, Urine Ketones Negative, Urine Blood 3+, Urine Nitrate Negative, Urine Bilirubin Negative, Urine Urobilinogen 0.2, Ur Leukocyte Esterase Negative, Urine RBC 50-100, Urine WBC 3-5, Ur Squamous Epith Cells 3-5, Calcium Oxalate Crystal 1+, Cystine Crystals 4+, Urine Bacteria Trace 10/14/21 19:26: WBC 10.6, RBC 5.71, Hgb 16.4, Hct 48.6, MCV 85.2, MCH 28.8, MCHC 33.8, RDW 13.5, Plt Count 282, MPV 10.4, Neut % (Auto) 63.6, Lymph % (Auto) 23.4, [place] % (Auto) 8.0, Eos % (Auto) 1.9, Baso % (Auto) 3.1 H, Neut # (Auto) 6.7, Lymph # (Auto) 2.5, [place] # (Auto) 0.8, Eos # (Auto) 0.2, Baso # (Auto) 0.3 H, ESR 2 10/14/21 19:26: Sodium 141, Potassium 4.1, Chloride 104, Carbon Dioxide 25, Anion Gap 16.1 H, BUN 13, Creatinine 1.00, Estimated Creat Clear 127, Estimated GFR 94, Est GFR ( Amer) 114, Glucose 101 H, Calcium 10.2, Total Bilirubin 0.5, AST 43, ALT 67, Alkaline Phosphatase 72, C-Reactive Protein 3.9, Total Protein 8.3 H, Albumin 5.1 H, Globulin 3.2, Albumin/Globulin Ratio 1.6, Amylase 71, Lipase 35 Result diagrams: 10/14/21 19:26 10/14/21 19:26 Orders (Tests/Meds): ED MEDICATIONS Generic Name Dose Route Start Last Admin Trade Name Freq PRN Reason Stop Dose Admin Sodium Chloride 1,000 mls @ 999 mls/hr 10/14/21 19:45 10/14/21 19:42 Sod Chlor 0.9% 1000ml Bag IV 10/14/21 20:45 999 mls/hr .Q1H1M SHARMILA Administration Tamsulosin HCl 0.4 mg 10/14/21 21:00 10/14/21 20:23 Tamsulosin 0.4mg Capsule PO 11/13/21 20:59 0.4 mg HS SHARMILA Administration Discontinued Medications Generic Name Dose Route Start Last Admin Trade Name Freq PRN Reason Stop Dose Admin Hydromorphone HCl 1 mg 10/14/21 20:08 10/14/21 20:12 Hydromorphone 2mg/Ml Syringe IV 10/14/21 20:09 1 mg ONCE ONE Administration Hydromorphone HCl 1 mg 10/14/21 20:48 10/14/21 20:51 Hydromorphone 2mg/Ml Syringe IV 10/14/21 20:49 1 mg ONCE ONE Administration Ketorolac Tromethamine 30 mg 10/14/21 19:38 10/14/21 19:41 Ketorolac 30mg/Ml Vial IV 10/14/21 19:39 30 mg ONCE ONE Administration Morphine Sulfate 4 mg 10/14/21 19:39 10/14/21 19:41 Morphine 4mg/Ml Syringe IV 10/14/21 19:40 4 mg ONCE ONE Administration Ondansetron HCl 4 mg 10/14/21 19:38 10/14/21 19:41 Ondansetron 4mg/2ml Vial IV 10/14/21 19:39 4 mg ONCE ONE Administration Promethazine HCl 12.5 mg 10/14/21 20:08 10/14/21 20:11 Promethazine Hcl 25mg/Ml 1ml Vial IV 10/14/21 20:09 12.5 mg ONCE ONE Administration Sodium Chloride 25 ml 10/14/21 20:08 Sodium Chloride 0.9% 25ml Bag IV 10/14/21 20:09 ONCE ONE ORDERS Category Date Time Status Rapid
[2021-10-14 20:13] LABS: Microscopic, Urine URINE MICROSCOPIC (MICROSCOPIC)
[2021-10-14 20:15] LABS: Basophils # 0.3 K/mm3 (0-0.2); Basophils % 3.1 % (0.1-2.0); Eosinophils # 0.2 K/mm3 (0.0-0.4); Eosinophils % 1.9 % (0.1-12.0); Hematocrit 48.6 % (42.0-52.0); Hemoglobin 16.4 g/dL (14.1-18.0); Lymphocytes # 2.5 K/mm3 (0.7-4.5); Lymphocytes % 23.4 % (10-50); Mean Corpuscular HGB Conc 33.8 g/dL (31.8-35.4); Mean Corpuscular Hemoglobin 28.8 pg (27.0-31.2); Mean Corpuscular Volume 85.2 fl (80-94); Mean Platelet Volume 10.4 fl (7.4-10.4); Monocytes # 0.8 K/mm3 (0.1-1.0); Neutrophils # 6.7 K/mm3 (1.8-7.8); Neutrophils % 63.6 % (37.0-80.0); Platelet Count 282 K/mm3 (142-424); Red Blood Count 5.71 M/mm3 (4.60-6.20); Red Cell Distribution Width 13.5 % (11.5-17.5); White Blood Count 10.6 K/mm3 (4.8-10.8)
[2021-10-14 20:17] LABS: Chloride 104 mmol/L (98-107)
[2021-10-14 20:18] LABS: Potassium 4.1 mmoL/L (3.5-5.1); Sodium 141 mmol/L (136-145)
[2021-10-14 20:20] LABS: Alanine Aminotransferase 67 U/L (12-78); Amylase 71 U/L (30-110); Aspartate Amino Transferase 43 U/L (17-59); Blood Urea Nitrogen 13 mg/dl (9-20); Creatinine Clearance Estimated 127 mL/min (50-200); Estimated Glomerular Filt Rate 94 ml/min (>60); GFR (African American) 114 ML/MIN (>60)
[2021-10-14 20:21] LABS: Albumin Level 5.1 g/dl (3.5-5.0); Albumin/Globulin Ratio 1.6 (1.1-1.8); Alkaline Phosphatase 72 U/L (38-126); Anion Gap 16.1 mEq/L (5-15); Bilirubin,Total 0.5 mg/dl (0.2-1.3); Calcium 10.2 mg/dl (8.4-10.2); Carbon Dioxide 25 mmol/L (22.0-30.0); Globulin 3.2 g/dL (1.3-3.2); Glucose 101 mg/dl (74-100); Lipase 35 U/L (23-300); Total Protein,Serum 8.3 g/dl (6.3-8.2)
[2021-10-14 20:26] LABS: C-Reactive Protein 3.9 mg/L (0-4)
[2021-10-14 20:42] LABS: Appearance,Urine SL CLOUDY (Clear); Bilirubin,Urine Negative (Negative); Blood, Urine 3+ (Negative); Color,Urine YELLOW (Yellow); Glucose,Urine (UA) Negative (Negative); Ketones,Urine Negative (Negative); Leukocyte Esterase,Urine Negative (Negative); Nitrate,Urine Negative (Negative); Protein,Urine 2+ (Negative); Specific Gravity, Urine >= 1.030 (1.005-1.030); Urobilinogen,Urine 0.2 EU/dl (0.2)
[2021-10-14 20:51] LABS: Erythrocyte Sedimentation Rate 2 mm/hr (0-15)
[2021-10-14 20:59] LABS: Bacteria,Urine Trace /lpf; Calcium Oxalate Crystals,Urine 1+ /lpf; Cystine Crystals,Urine 4+ /lpf; RBC,Urine 50-100 #/hpf (0-3)
[2021-10-14 21:16] LABS: Coronavirus 19, PCR Not Detected (NotDetected); Influenza A, PCR Not Detected (NotDetected); Influenza B, PCR Not Detected (NotDetected)
--- NOTE | 2021-10-14 21:21 | PC.NURSE ---
speaking with Dr. Wharton
--- NOTE | 2021-10-14 22:10 | PC.NURSE ---
Notified house of admission
--- NOTE | 2021-10-14 22:48 | PC.NURSE ---
PT ARRIVED TO FLOOR VIA W/C FROM ED W/STAFF @ [id number]
[2021-10-15] VITALS (12 sets, daily range): BP systolic 131–151; BP diastolic 62–83; PULSE 80–104; RESP 14–18; TEMP 36.3–36.7; O2SAT 92–99; BMI 32.5
--- NOTE | 2021-10-15 04:57 | PC.NURSE ---
Patient admitted to floor. Patient medicated per mar for pain and nausea. Patient states abdomen is tender. Urine being strained for stone. Patient has been npo since 0000 for urology consult today.
--- NOTE | 2021-10-15 07:08 | HMH.PHAVTE ---
[facility] Pharmacy VTE Monitoring - Patient Demographics Admission date: 10/14/21 Report Date: 10/15/21 Time: 07:08 Allergies/Adverse Reactions: Patient Allergies No Known Allergies Allergy (Verified 03/10/21 11:53) Height: 1.6 m Weight: 83.28 kg Patient Problems: Current Active Problems Renal colic on left side (Acute) Intractable pain (Acute) - VTE Risk Labs: VTE Related Lab Results Hgb 16.4 g/dL (14.1-18.0) 10/14/21 19:26 Hct 48.6 % (42.0-52.0) 10/14/21 19:26 Plt Count 282 K/mm3 (142-424) 10/14/21 19:26 BUN 13 mg/dl (9-20) 10/14/21 19:26 Creatinine 1.00 mg/dl (0.66-1.25) 10/14/21 19:26 Estimated Creat Clear 127 mL/min (50-200) 10/14/21 19:26 Was VTE Risk Assessment Performed: Yes VTE Score: 1 VTE Risk Level: Very Low Risk - Prophylaxis VTE Prophylaxis Ordered?: Yes Types of VTE Prophylaxis: TEDS Knee High Location of Applied Device: Bilateral Lower Extremeties
[2021-10-15 07:24] LABS: Basophils % 0.4 % (0.1-2.0); Eosinophils % 0.2 % (0.1-12.0); Hematocrit 43.1 % (42.0-52.0); Lymphocytes # 1.1 K/mm3 (0.7-4.5); Lymphocytes % 11.6 % (10-50); Mean Corpuscular HGB Conc 33.3 g/dL (31.8-35.4); Mean Corpuscular Hemoglobin 28.3 pg (27.0-31.2); Mean Corpuscular Volume 85.1 fl (80-94); Monocytes # 0.6 K/mm3 (0.1-1.0); Monocytes % 6.6 % (1.7-9.3); Neutrophils # 7.6 K/mm3 (1.8-7.8); Neutrophils % 81.2 % (37.0-80.0); Platelet Count 236 K/mm3 (142-424); Red Blood Count 5.06 M/mm3 (4.60-6.20); Red Cell Distribution Width 13.6 % (11.5-17.5); White Blood Count 9.3 K/mm3 (4.8-10.8)
--- NOTE | 2021-10-15 07:34 | HMH.HP ---
*Admission Date: 10/14/21 *Chief complaint: intractable flank pain *History of present illness: Mr. Nguyen is a 21-year-old male with history of cystine stones (see lab results in [employer] [facility]). He notes that yesterday morning he had onset of left sided flank pain. Pain worsened through the day leading to him coming to the ER for evaluation. CT scan showed 5 mm kidney stone in proximal left ureter with hydronephrosis. Pain was difficult to control with Toradol, Dilaudid. Also complained of nausea and lower abdominal pain. Labs were relatively unremarkable. Normal white count, creatinine, electrolytes. Urine positive for blood. Admitted for pain management and urology consult. Started on tamsulosin last night and IV fluids. N.p.o. at midnight. On evaluation this morning, states pain is little bit better. Has responded well to Dilaudid overnight. Voiding independently, no stone strained yet. Remains hemodynamically stable and afebrile. [facility] History I have reviewed the patient's past medical history: Yes Medical History: Reports:: Kidney Stones Denies:: Cancer, Diabetes Mellitus Type 1, Diabetes Mellitus Type 2, Internal Pacemaker, MRSA, Seizures *Have you ever received a pneumonia vaccine?: No *Have you received a flu vaccine this season?: No Other Medical History: Denies: Blood Transfusion Reaction Other Surgeries: Yes: No Previous Surgery, Other. No: Pacemaker Amputation: No Fractures: No - *Social History Last grade of school completed: 11th or 12th Smoking Status: Never smoker Alcohol Intake: never Substance Use Type: denies use *Occupational Status:: employed Housing: house Household Members: family *Travel in the last 8 weeks: None Family Hx:: No significant family history Review of Systems - Review of Systems Review of systems:: pertinent systems reviewed and negative unless documented below (14 point review of systems performed, pertinent positives and negatives as per HPI) - *Neurologic Denies headache(s), Denies seizure-like activity Meds Home Medications Medication Instructions Recorded Confirmed Type Tiopronin [Thiola EC] 300 mg PO BID 10/14/21 10/14/21 History Allergies Allergy/AdvReac Type Severity Reaction Status Date / Time No Known Allergies Allergy Verified 03/10/21 11:53 Exam Vital signs and Labs for Last 24 Hours: Temp Pulse Resp BP Pulse Ox 98.1 F 81 18 134/74 99 10/15/21 04:00 10/15/21 04:00 10/15/21 04:00 10/15/21 04:00 10/15/21 04:00 Laboratory Results - last 24 hr 10/14/21 19:17: Urine Color Yellow, Urine Appearance Sl cloudy, Urine pH 6.0, Ur Specific [place] >= 1.030, Urine Protein 2+, Urine Glucose (UA) Negative, Urine Ketones Negative, Urine Blood 3+, Urine Nitrate Negative, Urine Bilirubin Negative, Urine Urobilinogen 0.2, Ur Leukocyte Esterase Negative, Urine RBC 50-100, Urine WBC 3-5, Ur Squamous Epith Cells 3-5, Calcium Oxalate Crystal 1+, Cystine Crystals 4+, Urine Bacteria Trace 10/14/21 19:26: WBC 10.6, RBC 5.71, Hgb 16.4, Hct 48.6, MCV 85.2, MCH 28.8, MCHC 33.8, RDW 13.5, Plt Count 282, MPV 10.4, Neut % (Auto) 63.6, Lymph % (Auto) 23.4, [place] % (Auto) 8.0, Eos % (Auto) 1.9, Baso % (Auto) 3.1 H, Neut # (Auto) 6.7, Lymph # (Auto) 2.5, [place] # (Auto) 0.8, Eos # (Auto) 0.2, Baso # (Auto) 0.3 H, ESR 2 10/14/21 19:26: Sodium 141, Potassium 4.1, Chloride 104, Carbon Dioxide 25, Anion Gap 16.1 H, BUN 13, Creatinine 1.00, Estimated Creat Clear 127, Estimated GFR 94, Est GFR ( Amer) 114, Glucose 101 H, Calcium 10.2, Total Bilirubin 0.5, AST 43, ALT 67, Alkaline Phosphatase 72, C-Reactive Protein 3.9, Total Protein 8.3 H, Albumin 5.1 H, Globulin 3.2, Albumin/Globulin Ratio 1.6, Amylase 71, Lipase 35 10/14/21 21:00: SARS-CoV-2 (PCR) Not detected, Influenza A Untype (PCR) Not detected, Influenza Type B (PCR) Not detected 10/15/21 06:09: WBC 9.3, RBC 5.06, Hct 43.1, MCV 85.1, MCH 28.3, MCHC 33.3, RDW 13.6, Plt Count 236, MPV 8.0, Neut % (Auto) 81.2 H, Lymph % (Auto) 1
[2021-10-15 07:41] LABS: Chloride 105 mmol/L (98-107); Potassium 4.5 mmoL/L (3.5-5.1); Sodium 141 mmol/L (136-145)
[2021-10-15 07:44] LABS: Anion Gap 11.5 mEq/L (5-15); Blood Urea Nitrogen 14 mg/dl (9-20); Carbon Dioxide 29 mmol/L (22.0-30.0); Creatinine Clearance Estimated 106 mL/min (50-200); Estimated Glomerular Filt Rate 70 ml/min (>60); GFR (African American) 84 ML/MIN (>60)
[2021-10-15 07:45] LABS: Calcium 8.9 mg/dl (8.4-10.2); Glucose 105 mg/dl (74-100)
[2021-10-15 09:28] LABS: Hemoglobin 14.3 g/dL (14.1-18.0)
--- NOTE | 2021-10-15 09:33 | HMH.PHAINT ---
MEDICATION RECONCILIATION COMPLETED ON PATIENT VIA PATIENT INTERVIEW. -CAMERON STEEN, NOLAND
--- NOTE | 2021-10-15 11:01 | HMH.CONS ---
*Admission Date: 10/14/21 *Reason for consult:: Left ureteral stone with obstruction *History of present illness: Patient is a 21-year-old white female with a history of cystine stones noted this morning with the onset of left renal colic last evening. CT scan shows a 5 mm stone in the proximal left ureter with moderate left-sided hydronephrosis. Patient had associated nausea. His white count is normal and his renal function is normal. His pain is controlled with hospital. [facility] History Medical History: Reports:: Kidney Stones Denies:: Cancer, Diabetes Mellitus Type 1, Diabetes Mellitus Type 2, Internal Pacemaker, MRSA, Seizures *Have you ever received a pneumonia vaccine?: No *Have you received a flu vaccine this season?: No Other Medical History: Denies: Blood Transfusion Reaction Other Surgeries: Yes: No Previous Surgery, Other. No: Pacemaker Amputation: No Fractures: No - *Social History Last grade of school completed: 11th or 12th Smoking Status: Never smoker Alcohol Intake: never Substance Use Type: denies use *Occupational Status:: employed Housing: house Household Members: family *Travel in the last 8 weeks: None Family Hx:: No significant family history Review of Systems - Review of Systems Review of systems:: pertinent systems reviewed and negative unless documented below - *Neurologic Denies headache(s), Denies seizure-like activity Meds Home Medications Medication Instructions Recorded Confirmed Type Tiopronin [Thiola EC] 300 mg PO BID 10/14/21 10/14/21 History Allergies Allergy/AdvReac Type Severity Reaction Status Date / Time No Known Allergies Allergy Verified 03/10/21 11:53 Exam Vital signs and Labs for Last 24 Hours: Temp Pulse Resp BP Pulse Ox 98.1 F 104 H 14 143/76 H 93 L 10/15/21 08:00 10/15/21 08:00 10/15/21 08:00 10/15/21 08:00 10/15/21 08:00 Laboratory Results - last 24 hr 10/14/21 19:17: Urine Color Yellow, Urine Appearance Sl cloudy, Urine pH 6.0, Ur Specific [place] >= 1.030, Urine Protein 2+, Urine Glucose (UA) Negative, Urine Ketones Negative, Urine Blood 3+, Urine Nitrate Negative, Urine Bilirubin Negative, Urine Urobilinogen 0.2, Ur Leukocyte Esterase Negative, Urine RBC 50-100, Urine WBC 3-5, Ur Squamous Epith Cells 3-5, Calcium Oxalate Crystal 1+, Cystine Crystals 4+, Urine Bacteria Trace 10/14/21 19:26: WBC 10.6, RBC 5.71, Hgb 16.4, Hct 48.6, MCV 85.2, MCH 28.8, MCHC 33.8, RDW 13.5, Plt Count 282, MPV 10.4, Neut % (Auto) 63.6, Lymph % (Auto) 23.4, [place] % (Auto) 8.0, Eos % (Auto) 1.9, Baso % (Auto) 3.1 H, Neut # (Auto) 6.7, Lymph # (Auto) 2.5, [place] # (Auto) 0.8, Eos # (Auto) 0.2, Baso # (Auto) 0.3 H, ESR 2 10/14/21 19:26: Sodium 141, Potassium 4.1, Chloride 104, Carbon Dioxide 25, Anion Gap 16.1 H, BUN 13, Creatinine 1.00, Estimated Creat Clear 127, Estimated GFR 94, Est GFR ( Amer) 114, Glucose 101 H, Calcium 10.2, Total Bilirubin 0.5, AST 43, ALT 67, Alkaline Phosphatase 72, C-Reactive Protein 3.9, Total Protein 8.3 H, Albumin 5.1 H, Globulin 3.2, Albumin/Globulin Ratio 1.6, Amylase 71, Lipase 35 10/14/21 21:00: SARS-CoV-2 (PCR) Not detected, Influenza A Untype (PCR) Not detected, Influenza Type B (PCR) Not detected 10/15/21 06:09: WBC 9.3, RBC 5.06, Hgb 14.3 D, Hct 43.1, MCV 85.1, MCH 28.3, MCHC 33.3, RDW 13.6, Plt Count 236, MPV 8.0, Neut % (Auto) 81.2 H, Lymph % (Auto) 11.6, [place] % (Auto) 6.6, Eos % (Auto) 0.2, Baso % (Auto) 0.4, Neut # (Auto) 7.6, Lymph # (Auto) 1.1, [place] # (Auto) 0.6, Eos # (Auto) 0.0, Baso # (Auto) 0.0 10/15/21 06:09: Sodium 141, Potassium 4.5, Chloride 105, Carbon Dioxide 29, Anion Gap 11.5, BUN 14, Creatinine 1.30 H D, Estimated Creat Clear 106, Estimated GFR 70, Est GFR ( Amer) 84 D, Glucose 105 H, Calcium 8.9 I & O for Last 24 hours: Intake & Output 10/12/21 10/13/21 10/14/21 10/15/21 23:59 23:59 23:59 23:59 Output Total 120 / 120 Balance -120 / -120 Weight 83.28 kg 83.28 kg - Constitutional no acute d
--- NOTE | 2021-10-15 12:03 | P.PN_ITS ---
[facility] Anesthesia Checklist - Patient Identification Patient Identification: Arm Band - Structural Data Admitted From: Inpatient Planned Operative Procedure/s: Left Ureteroscopy with Stone Extraction Consent for Planned Operative Procedure(s) Verified: Yes Verified Documents: Surgical Consent, History and Physical - NPO Status Verified Time NPO: 00:00 - Additional verifications Anesthesia Reactions: No Hx Blood Transfusions: No Blood Transfusion Reaction: No - Airway Assessment C-Spine Mobility Assessed: Yes (mp2) TMJ Mobility Assessed: Yes Dentition: Good Dentition - Neurological Assessment Level of Consciousness: Awake, Alert - Anesthesia Plan Anesthesia Risk discussed: Yes Anesthesia Plan: Verified ASA Class: II Anesthesia Type: General [facility] History I have reviewed the patient's past medical history: Yes Medical History: Reports:: Kidney Stones Denies:: Cancer, Diabetes Mellitus Type 1, Diabetes Mellitus Type 2, Internal Pacemaker, MRSA, Seizures *Have you ever received a pneumonia vaccine?: No *Have you received a flu vaccine this season?: No Other Medical History: Denies: Blood Transfusion Reaction Anesthesia experience/problems:: nac Other Surgeries: Yes: Other. No: Pacemaker Amputation: No Fractures: No - *Social History Last grade of school completed: 11th or 12th Smoking Status: Never smoker Alcohol Intake: never Substance Use Type: denies use *Occupational Status:: employed Housing: house Household Members: family *Travel in the last 8 weeks: None Family Hx:: No significant family history
--- NOTE | 2021-10-15 12:51 | XR_ITS ---
FINAL REPORT CLINICAL HISTORY: LEFT URETEROSCOPY WITH STONE EXTRACTION in surgery 0.44 min fluoro time 28.88 mGy FINDINGS: FLUORO TIME PROCEDURE: Left ureteroscopy with stone extraction. FINDINGS: Fluoroscopy time was provided by the radiology department for the clinical service. One film was obtained. Fluoroscopy exposure time: 0:44 IMPRESSION: See above Reviewed, Interpreted and Dictated by Rd Goncalves III, MD Transcribed by Annabella Stephens Authenticated and [facility]
--- NOTE | 2021-10-15 12:56 | HMH.ANESI ---
[facility] Anesthesia Record Part I Intake, IV Amount: 900 Estimated blood loss (mL): 0 Urine output (mL): 0 Blood Pressure: 131/62 SaO2: 92 Pulse Rate: 92 Respiratory Rate: 16 Temperature: 97.4 F Patient is:: Drowsy, Stable Stable to PACU at:: 12:55
--- NOTE | 2021-10-15 13:33 | P.OP_ITS ---
Date of procedure: 10/15/21 Pre-op Diagnosis:: Left ureteral stone Post-op Diagnosis:: Same Procedure performed:: Left ureteroscopy, laser lithotripsy, stone extraction Surgeon:: Kelvin Peralta MD [employer]:: León Sanchez Anesthesia: LMA (Low scheduled today we will know when you would be very a little later so just outside of the spine that would be typically do not do that inside less we have a problem problems right okay thanks) Estimated blood loss (mL): 0 Clinical Note:: 21-year-old white male admitted this morning with left renal colic. He has a history of cystine stones and a CT scan shows that a stone that was in the lower pole was now in the proximal left ureter with moderate hydronephrosis. We have discussed treatment options and he wishes to proceed with left ureteroscopy and stone extraction. Operative findings:: 5 mm proximal left ureteral stone Operative note:: Patient taken to the operating room after informed consent was obtained. He was placed on the operating table in the supine position and general anesthesia administered. Preoperative antibiotics administered and he was placed into the dorsal lithotomy position. The 22 Jose passed into the urethra and into the bladder without difficulty. The bladder was examined in a systematic fashion and some tiny crystals were noted. The ureteral orifices in their normal anatomic position. A 0.035 sensor guidewire was passed into the left ureteral orifice and by the proximal stone without difficulty. A second wire was also placed without difficulty. The cystoscope then removed and a 03/21 navigator ureteral sheath was passed over one of the guidewires and our flexible ureteroscope was passed over that wire and into the left ureter without difficulty. The guidewire removed and the stone passed up to the level of the stone. There was a little bit of ureteral narrowing below the stone and the 200 nm laser fiber was passed through the scope and the stone broken up into several small fragments. The laser fiber removed and a 1.9 Kinyarwanda stone basket was used to grasp the largest fragment. This fragment was removed and the ureteroscope passed back into the ureter and no significant stone fragments were noted. The scope and the navigator sheath were then removed. The other guidewire was also removed. The cystoscope was replaced and the bladder drained. There appeared to be good urine output from the left ureteral orifice and the stent was not deemed necessary. Urojet placed into the urethra. Patient tolerated well without complication. Condition: stable Disposition: PACU Specimens:: Stone fragment was not sent Complications:: None
--- NOTE | 2021-10-15 13:34 | HMH.DCSUM ---
General - General Admission date:: 10/14/21 Discharge date: 10/15/21 HPI HPI: Mr. Nguyen is a 21-year-old male with history of cystine stones (see lab results in [facility]). He notes that yesterday morning he had onset of left sided flank pain. Pain worsened through the day leading to him coming to the ER for evaluation. CT scan showed 5 mm kidney stone in proximal left ureter with hydronephrosis. Pain was difficult to control with Toradol, Dilaudid. Also complained of nausea and lower abdominal pain. Labs were relatively unremarkable. Normal white count, creatinine, electrolytes. Urine positive for blood. Admitted for pain management and urology consult. Started on tamsulosin last night and IV fluids. N.p.o. at midnight. On evaluation this morning, states pain is little bit better. Has responded well to Dilaudid overnight. Voiding independently, no stone strained yet. Remains hemodynamically stable and afebrile. Hospital Course Hospital Course: 21-year-old male with obstructing left nephrolithiasis. Urology consulted, taken to the OR today for extraction of obstructing stone. Tolerated procedure well. Medically stable for discharge home with continued pain control. Follow-up as needed with urology. We will continue tamsulosin for a month and send with Toradol for pain. Okay to resume regular diet. Objective Vital signs: Temp Pulse Resp BP Pulse Ox 97.4 F L 94 H 16 143/78 H 95 10/15/21 12:57 10/15/21 13:20 10/15/21 13:20 10/15/21 13:20 10/15/21 13:20 Narrative: - Constitutional mild distress, obese - *Routine HEENT Exam Head: Present: normocephalic Eye: Present: EOMI, PERRL ENT: Present: mucous membranes moist - *Routine Neck Exam Present: supple. Absent: lymphadenopathy - *Routine Respiratory Exam Present: CTA bilaterally - *Routine Cardiovascular Exam Present: RRR - *Routine Abdominal Exam Present: soft, normoactive bowel sounds, tenderness (Left lower quadrant, minimal left CVA tenderness. No right CVA tenderness) - *Routine Extremities Exam Absent: cyanosis, clubbing, edema - *Routine Skin Exam Present: warm. Absent: rash - *Routine Neurological Exam Present: alert, oriented X3 Results Labs on day of discharge: Labs from last 24 hours 10/15/21 10/15/21 10/14/21 06:09 06:09 21:00 WBC 9.3 RBC 5.06 Hgb 14.3 D Hct 43.1 MCV 85.1 MCH 28.3 MCHC 33.3 RDW 13.6 Plt Count 236 MPV 8.0 Neut % (Auto) 81.2 H Lymph % (Auto) 11.6 [place] % (Auto) 6.6 Eos % (Auto) 0.2 Baso % (Auto) 0.4 Neut # (Auto) 7.6 Lymph # (Auto) 1.1 [place] # (Auto) 0.6 Eos # (Auto) 0.0 Baso # (Auto) 0.0 ESR Sodium 141 Potassium 4.5 Chloride 105 Carbon Dioxide 29 Anion Gap 11.5 BUN 14 Creatinine 1.30 H D Estimated Creat Clear 106 Estimated GFR 70 Est GFR ( Amer) 84 D Glucose 105 H Calcium 8.9 Total Bilirubin AST ALT Alkaline Phosphatase C-Reactive Protein Total Protein Albumin Globulin Albumin/Globulin Ratio Amylase Lipase Urine Color Urine Appearance Urine pH Ur Specific [place] Urine Protein Urine Glucose (UA) Urine Ketones Urine Blood Urine Nitrate Urine Bilirubin Urine Urobilinogen Ur Leukocyte Esterase Urine RBC Urine WBC Ur Squamous Epith Cells Calcium Oxalate Crystal Cystine Crystals Urine Bacteria SARS-CoV-2 (PCR) Not detected Influenza A Untype (PCR) Not detected Influenza Type B (PCR) Not detected 10/14/21 10/14/21 10/14/21 19:26 19:26 19:17 WBC 10.6 RBC 5.71 Hgb 16.4 Hct 48.6 MCV 85.2 MCH 28.8 MCHC 33.8 RDW 13.5 Plt Count 282 MPV 10.4 Neut % (Auto) 63.6 Lymph % (Auto) 23.4 [place] % (Auto) 8.0 Eos % (Auto) 1.9 Baso % (Auto) 3.1 H Neut # (Auto) 6.7 Lymph # (Auto) 2.5 [place] # (Au
--- NOTE | 2021-10-15 14:05 | HMH.PHAINT ---
DISCHARGE MEDICATION COUNSELING PROVIDED. DISCUSSED THE FLOMAX AND SHORT-COURSE KETOROLAC. DISCUSSED TO TAKE THE FLOMAX AT NIGHT AND THE KETOROLAC WITH FOOD EVERY 6 HOURS NEEDED FOR PAIN. WATCH OUT FOR DIZZINESS, LIGHTHEADEDNESS, ORTHOSTASIS AND UPSET STOMACH (KETOROLAC). PATIENT ENDORSED NO QUESTIONS AT THIS TIME.
--- NOTE | 2021-10-15 15:17 | PC.NURSE ---
patient is able to be discharged waiting on patient ride to get here
--- NOTE | 2021-10-16 07:40 | HMH.ANESII ---
[facility] Anesthesia Record Part II Discharge Time: 13:25 Destination: Home PACU nurse assessment reviewed?: Yes Patient Condition:: Good Anesthesia Complications:: None Swallowing reflex intact?: Yes Cyanosis?: No Blood Pressure: 143/78 Pulse Rate: 94 Temperature: 97.0 F Mental Status: Alert & Oriented Pain level:: 0 Nausea and/or vomitting:: None Intake, IV Amount: 0
[2021-10-16 07:41] VITALS: BP 143/78; PULSE 94; TEMP 36.1
--- NOTE | 2021-10-16 16:46 | CARE MANAGER ---
Attempted to call patient to discuss post discharge status. Phone number on file is not a working number.
== END 2021-10-15 15:25 | disposition home or self-care (01) ==
LOC: ER 21:38 → 2ND 22:21
PROVIDERS: Urology; Admitting Provider Internal Medicine Adolescent Medicine; Emergency Provider Emergency Medicine; PCP Family Medicine; Visit Provider Internal Medicine Adolescent Medicine
PROC: (CPT 52352; principal; 2021-10-15 11:45)
DX: N13.2 Hydronephrosis with renal and ureteral calculous obstruction (principal); Z20.822 Contact with and (suspected) exposure to COVID-19
CPT/HCPCS: 50590; 36415; 74018; 74176; 76000; 80048; 80053; 81001; 82150; 83690; 85025; 85651; 86140; 99285; C9803; G0378; J2405; U0003; U0005

== ENCOUNTER 2021-11-22 11:33 | Emergency (ER) | payer BC, SELFPAY ==
[2021-11-22] VITALS (8 sets, daily range): BP systolic 123–175; BP diastolic 62–83; PULSE 72–104; RESP 16–18; TEMP 36.6–37.1; O2SAT 96–98; BMI 25.1; BMI 30.1
--- NOTE | 2021-11-22 11:47 | XR_ITS ---
PROCEDURE INFORMATION: Exam: XR Chest Exam date and time: 11/22/2021 12:04 PM Age: 21 years old Clinical indication: Angina and cough and shortness of breath; Chest wall pain and right-sided and left-sided; Patient HX: PT diagnosed w bronchitis Tuesday, symptoms worsened since. C/O cp, cough, SOA w n/d TECHNIQUE: Imaging protocol: Radiologic exam of the chest. Views: 2 views. COMPARISON: SD XR KUB 10/15/2021 12:51 PM FINDINGS: Lungs: No focal airspace disease. Pleural spaces: Unremarkable. No pleural effusion. No pneumothorax. Heart/Mediastinum: Cardiomediastinal silhouette is within normal limits. Bones/joints: Unremarkable. IMPRESSION: No acute cardiopulmonary abnormality.
--- NOTE | 2021-11-22 12:00 | PC.NURSE ---
pt given warm blankets
[2021-11-22 12:08] LABS: Coronavirus 19, PCR Not Detected (NotDetected); Influenza A, PCR Not Detected (NotDetected); Influenza B, PCR Not Detected (NotDetected)
[2021-11-22 12:12] LABS: Basophils # 0.1 K/mm3 (0-0.2); Basophils % 0.4 % (0.1-2.0); Eosinophils # 0.2 K/mm3 (0.0-0.4); Eosinophils % 1.8 % (0.1-12.0); Hematocrit 47.1 % (42.0-52.0); Lymphocytes % 17.8 % (10-50); Mean Corpuscular Hemoglobin 28.1 pg (27.0-31.2); Mean Corpuscular Volume 82.6 fl (80-94); Mean Platelet Volume 7.3 fl (7.4-10.4); Monocytes # 0.6 K/mm3 (0.1-1.0); Monocytes % 5.9 % (1.7-9.3); Neutrophils # 8.1 K/mm3 (1.8-7.8); Neutrophils % 74.1 % (37.0-80.0); Platelet Count 274 K/mm3 (142-424); Red Cell Distribution Width 12.9 % (11.5-17.5); White Blood Count 10.9 K/mm3 (4.8-10.8)
[2021-11-22 12:21] LABS: Alanine Aminotransferase 46 U/L (12-78); Albumin Level 4.5 g/dl (3.5-5.0); Albumin/Globulin Ratio 1.4 (1.1-1.8); Alkaline Phosphatase 66 U/L (38-126); Anion Gap 12.1 mEq/L (5-15); Aspartate Amino Transferase 36 U/L (17-59); Bilirubin,Total 0.3 mg/dl (0.2-1.3); Blood Urea Nitrogen 16 mg/dl (9-20); Calcium 9.8 mg/dl (8.4-10.2); Carbon Dioxide 30 mmol/L (22.0-30.0); Chloride 101 mmol/L (98-107); Creatinine Clearance Estimated 142 mL/min (50-200); Estimated Glomerular Filt Rate 107 ml/min (>60); GFR (African American) 129 ML/MIN (>60); Globulin 3.2 g/dL (1.3-3.2); Glucose 127 mg/dl (74-100); Potassium 4.1 mmoL/L (3.5-5.1); Sodium 139 mmol/L (136-145); Total Protein,Serum 7.7 g/dl (6.3-8.2)
--- NOTE | 2021-11-22 12:21 | PC.NURSE ---
family at bedside
--- NOTE | 2021-11-22 12:45 | PC.NURSE ---
PT C/O BEING NAUSEATED NEW ORDERS BY
--- NOTE | 2021-11-22 13:07 | HMH.EDABDPAI ---
ED Disposition Clinical Impression: Bronchitis Disposition: Home, Self-Care Condition on Discharge: Good Instructions: DI for Acute Bronchitis, DI for Acute Abdominal Pain Additional Instructions: Release from work until 11/27/2021. Rest, drink plenty of fluids. Return for worsening shortness of air or other concerns. Prescriptions: Doxycycline Hyclate [Doxycycline Hyclate 100mg Tablet] 100 mg PO Q12 7 Days #14 tab Transmission Status: [facility] Ondansetron [Zofran 4mg ODT] 4 mg PO TIDP PRN 4 Days #12 tab PRN Reason: Nausea Transmission Status: Received by [facility] Referrals: Arun Scott MD [Primary Care Provider] - Forms: Work/School Release - Critical Care Critical Care Time: No Attestation: On 11/22/21, the high probability of a clinically significant, sudden or life threatening deterioration of the following system(s) required my full and direct attention, intervention and personal management. The time I documented below is in addition to time spent performing reported procedures but includes the following listed in this critical care notation. Medical Decision Making - Medical Records Medical records reviewed: Yes: I reviewed the patient's medical records. - Maynor Inquiry Pt receiving controlled substance: No Vital Signs: 11/22/21 11:34 11/22/21 12:54 11/22/21 13:00 Temperature 98.8 F Temperature Source Oral Pulse Rate 89 86 Pulse Rate [Radial] 104 H Respiratory Rate 18 18 18 Blood Pressure 141/75 H 142/77 H Blood Pressure [Right Arm] 132/66 Blood Pressure Mean 97 98 Blood Pressure Mean [Right Arm] 88 Blood Pressure Position Blood Pressure Position [Right Arm] Sitting 02 Sat by Pulse Oximetry 98 97 Oxygen Delivery Method Room Air 11/22/21 13:31 11/22/21 14:00 11/22/21 14:30 Temperature Temperature Source Pulse Rate 80 80 72 Pulse Rate [Radial] Respiratory Rate 18 18 18 Blood Pressure 175/83 H 160/82 H 130/63 Blood Pressure [Right Arm] Blood Pressure Mean 107 108 86 Blood Pressure Mean [Right Arm] Blood Pressure Position Blood Pressure Position [Right Arm] 02 Sat by Pulse Oximetry 96 97 96 Oxygen Delivery Method 11/22/21 15:00 11/22/21 15:29 Temperature 98 F Temperature Source Oral Pulse Rate 76 74 Pulse Rate [Radial] Respiratory Rate 18 16 Blood Pressure 126/62 123/74 Blood Pressure [Right Arm] Blood Pressure Mean 80 Blood Pressure Mean [Right Arm] Blood Pressure Position Sitting Blood Pressure Position [Right Arm] 02 Sat by Pulse Oximetry 96 Oxygen Delivery Method Room Air - Lab Data Lab Results 11/22/21 12:00: SARS-CoV-2 (PCR) Not detected, Influenza A Untype (PCR) Not detected, Influenza Type B (PCR) Not detected 11/22/21 12:05: WBC 10.9 H, RBC 5.70, Hgb 16.0, Hct 47.1, MCV 82.6, MCH 28.1, MCHC 34.0, RDW 12.9, Plt Count 274, MPV 7.3 L, Neut % (Auto) 74.1, Lymph % (Auto) 17.8, [place] % (Auto) 5.9, Eos % (Auto) 1.8, Baso % (Auto) 0.4, Neut # (Auto) 8.1 H, Lymph # (Auto) 2.0, [place] # (Auto) 0.6, Eos # (Auto) 0.2, Baso # (Auto) 0.1 11/22/21 12:05: Sodium 139, Potassium 4.1, Chloride 101, Carbon Dioxide 30, Anion Gap 12.1, BUN 16, Creatinine 0.90, Estimated Creat Clear 142, Estimated GFR 107, Est GFR ( Amer) 129, Glucose 127 H, Calcium 9.8, Total Bilirubin 0.3, AST 36, ALT 46, Alkaline Phosphatase 66, Total Protein 7.7, Albumin 4.5, Globulin 3.2, Albumin/Globulin Ratio 1.4 11/22/21 13:20: Group A Strep Rapid Negative Result diagrams: 11/22/21 12:05 11/22/21 12:05 Orders (Tests/Meds): ED MEDICATIONS Discontinued Medications Generic Name Dose Route Start Last Admin Trade Name Freq PRN Reason Stop Dose Admin Sodium Chloride 1,000 mls @ 999 mls/hr 11/22/21 12:30 11/22/21 12:15 Sod Chlor 0.9% 1000ml Bag IV 11/22/21 13:30 999 mls/hr .Q1H1M SHARMILA Administration Ondansetron HCl 4 mg 11/22/21 12:25 11/22/21 12:10 Ondansetr
[2021-11-22 13:31] LABS: Strep Scrn Group A (Rapid) Negative (Negative)
--- NOTE | 2021-11-22 14:02 | HMH.EDABDPAI ---
ED Disposition Clinical Impression: Bronchitis Disposition: Home, Self-Care Condition on Discharge: Good Instructions: DI for Acute Bronchitis, DI for Acute Abdominal Pain Additional Instructions: Release from work until 11/27/2021. Rest, drink plenty of fluids. Return for worsening shortness of air or other concerns. Prescriptions: Doxycycline Hyclate [Doxycycline Hyclate 100mg Tablet] 100 mg PO Q12 7 Days #14 tab Transmission Status: Received by [facility] Ondansetron [Zofran 4mg ODT] 4 mg PO TIDP PRN 4 Days #12 tab PRN Reason: Nausea Transmission Status: Received by [facility] Referrals: Arun Scott MD [Primary Care Provider] - Forms: Work/School Release - Critical Care Critical Care Time: No Attestation: On 11/22/21, the high probability of a clinically significant, sudden or life threatening deterioration of the following system(s) required my full and direct attention, intervention and personal management. The time I documented below is in addition to time spent performing reported procedures but includes the following listed in this critical care notation. Medical Decision Making - Medical Records Medical records reviewed: Yes: I reviewed the patient's medical records. - Maynor Inquiry Pt receiving controlled substance: No Vital Signs: 11/22/21 11:34 11/22/21 12:54 11/22/21 13:00 Temperature 98.8 F Temperature Source Oral Pulse Rate 89 86 Pulse Rate [Radial] 104 H Respiratory Rate 18 18 18 Blood Pressure 141/75 H 142/77 H Blood Pressure [Right Arm] 132/66 Blood Pressure Mean 97 98 Blood Pressure Mean [Right Arm] 88 Blood Pressure Position Blood Pressure Position [Right Arm] Sitting 02 Sat by Pulse Oximetry 98 97 Oxygen Delivery Method Room Air 11/22/21 13:31 11/22/21 14:00 11/22/21 14:30 Temperature Temperature Source Pulse Rate 80 80 72 Pulse Rate [Radial] Respiratory Rate 18 18 18 Blood Pressure 175/83 H 160/82 H 130/63 Blood Pressure [Right Arm] Blood Pressure Mean 107 108 86 Blood Pressure Mean [Right Arm] Blood Pressure Position Blood Pressure Position [Right Arm] 02 Sat by Pulse Oximetry 96 97 96 Oxygen Delivery Method 11/22/21 15:00 11/22/21 15:29 Temperature 98 F Temperature Source Oral Pulse Rate 76 74 Pulse Rate [Radial] Respiratory Rate 18 16 Blood Pressure 126/62 123/74 Blood Pressure [Right Arm] Blood Pressure Mean 80 Blood Pressure Mean [Right Arm] Blood Pressure Position Sitting Blood Pressure Position [Right Arm] 02 Sat by Pulse Oximetry 96 Oxygen Delivery Method Room Air - Lab Data Lab results reviewed: Yes: I reviewed the patient's lab results. Lab Results 11/22/21 12:00: SARS-CoV-2 (PCR) Not detected, Influenza A Untype (PCR) Not detected, Influenza Type B (PCR) Not detected 11/22/21 12:05: WBC 10.9 H, RBC 5.70, Hgb 16.0, Hct 47.1, MCV 82.6, MCH 28.1, MCHC 34.0, RDW 12.9, Plt Count 274, MPV 7.3 L, Neut % (Auto) 74.1, Lymph % (Auto) 17.8, [place] % (Auto) 5.9, Eos % (Auto) 1.8, Baso % (Auto) 0.4, Neut # (Auto) 8.1 H, Lymph # (Auto) 2.0, [place] # (Auto) 0.6, Eos # (Auto) 0.2, Baso # (Auto) 0.1 11/22/21 12:05: Sodium 139, Potassium 4.1, Chloride 101, Carbon Dioxide 30, Anion Gap 12.1, BUN 16, Creatinine 0.90, Estimated Creat Clear 142, Estimated GFR 107, Est GFR ( Amer) 129, Glucose 127 H, Calcium 9.8, Total Bilirubin 0.3, AST 36, ALT 46, Alkaline Phosphatase 66, Total Protein 7.7, Albumin 4.5, Globulin 3.2, Albumin/Globulin Ratio 1.4 11/22/21 13:20: Group A Strep Rapid Negative Result diagrams: 11/22/21 12:05 11/22/21 12:05 Orders (Tests/Meds): ED MEDICATIONS Discontinued Medications Generic Name Dose Route Start Last Admin Trade Name Freq PRN Reason Stop Dose Admin Sodium Chloride 1,000 mls @ 999 mls/hr 11/22/21 12:30 11/22/21 12:15 Sod Chlor 0.9% 1000ml Bag IV 11/22/21 13:30 999 mls/hr .Q1H1M SHARMILA Administration
== END 2021-11-22 15:31 | disposition home or self-care (01) ==
PROVIDERS: Emergency Provider Emergency Medicine; PCP Family Medicine
DX: J40 Bronchitis, not specified as acute or chronic (principal)
CPT/HCPCS: 71046; 80053; 85025; 87430; 96365; 96375; 99284; C9803; J2405; U0003; U0005

== ENCOUNTER 2022-01-10 20:57 | Emergency (ER) | payer BC, SELFPAY ==
[2022-01-10 20:57] VITALS: BP 179/97; PULSE 91; RESP 18; TEMP 36.9; O2SAT 97; BMI 30.1
--- NOTE | 2022-01-10 21:08 | CT_ITS ---
PROCEDURE INFORMATION: Exam: CT Abdomen And Pelvis Without Contrast Exam date and time: 01/10/2022 9:24 PM Age: 21 years old Clinical indication: Abdominal pain; Flank; Left; Additional info: Renal stone concern left sided pain. Past HX of kidney stones TECHNIQUE: Imaging protocol: Computed tomography of the abdomen and pelvis without contrast. Radiation optimization: All CT scans at this facility use at least one of these dose optimization techniques: automated exposure control; mA and/or kV adjustment per patient size (includes targeted exams where dose is matched to clinical indication); or iterative reconstruction. COMPARISON: CT ABDOMEN PELVIS WO CON 10/14/2021 7:48 PM FINDINGS: Liver: Normal. No mass. Gallbladder and bile ducts: Normal. No calcified stones. No ductal dilation. Pancreas: Normal. No ductal dilation. Spleen: Normal. No splenomegaly. Adrenal glands: Normal. No mass. Kidneys and ureters: Severe left hydronephrosis and proximal ureteral dilatation secondary to a 2 mm stone in the proximal left ureter. Punctate nonobstructive right renal stone. Stomach and bowel: Unremarkable. No obstruction. No mucosal thickening. Appendix: No evidence of appendicitis. Intraperitoneal space: Unremarkable. No free air. No significant fluid collection. Vasculature: Unremarkable. No abdominal aortic aneurysm. Lymph nodes: Unremarkable. No enlarged lymph nodes. Urinary bladder: Unremarkable as visualized. Reproductive: Unremarkable as visualized. Bones/joints: Unremarkable. No acute fracture. Soft tissues: Unremarkable. IMPRESSION: Severe left hydronephrosis and proximal ureteral dilatation secondary to a 2 mm stone in the proximal left ureter.
[2022-01-10 21:41] LABS: Alanine Aminotransferase 48 U/L (12-78); Albumin Level 4.5 g/dl (3.5-5.0); Albumin/Globulin Ratio 1.5 (1.1-1.8); Alkaline Phosphatase 87 U/L (38-126); Anion Gap 15.3 mEq/L (5-15); Aspartate Amino Transferase 39 U/L (17-59); Bilirubin,Total 0.2 mg/dl (0.2-1.3); Blood Urea Nitrogen 17 mg/dl (9-20); Carbon Dioxide 23 mmol/L (22.0-30.0); Chloride 107 mmol/L (98-107); Creatinine Clearance Estimated 98 mL/min (50-200); Estimated Glomerular Filt Rate 70 ml/min (>60); GFR (African American) 84 ML/MIN (>60); Glucose 112 mg/dl (74-100); Lipase 32 U/L (23-300); Potassium 4.3 mmoL/L (3.5-5.1); Sodium 141 mmol/L (136-145); Total Protein,Serum 7.5 g/dl (6.3-8.2)
[2022-01-10 21:44] LABS: Lactic Acid 3.3 mmol/L (0.7-2.1)
[2022-01-10 21:45] LABS: Basophils # 0.1 K/mm3 (0-0.2); Basophils % 0.8 % (0.1-2.0); Eosinophils # 0.1 K/mm3 (0.0-0.4); Hematocrit 50.3 % (42.0-52.0); Hemoglobin 15.9 g/dL (14.1-18.0); Lymphocytes # 2.2 K/mm3 (0.7-4.5); Lymphocytes % 20.2 % (10-50); Mean Corpuscular HGB Conc 31.7 g/dL (31.8-35.4); Mean Corpuscular Hemoglobin 27.7 pg (27.0-31.2); Mean Corpuscular Volume 87.3 fl (80-94); Mean Platelet Volume 8.6 fl (7.4-10.4); Monocytes # 0.7 K/mm3 (0.1-1.0); Monocytes % 6.7 % (1.7-9.3); Neutrophils # 7.7 K/mm3 (1.8-7.8); Neutrophils % 71.2 % (37.0-80.0); Platelet Count 362 K/mm3 (142-424); Red Blood Count 5.76 M/mm3 (4.60-6.20); Red Cell Distribution Width 13.3 % (11.5-17.5); White Blood Count 10.8 K/mm3 (4.8-10.8)
[2022-01-10 23:27] VITALS: BP 127/75; PULSE 108; O2SAT 96
[2022-01-10 23:27] LABS: Microscopic, Urine URINE MICROSCOPIC (MICROSCOPIC)
[2022-01-10 23:30] VITALS: BP 132/75; PULSE 99; O2SAT 96
[2022-01-10 23:40] LABS: Appearance,Urine CLEAR (Clear); Bilirubin,Urine Negative (Negative); Blood, Urine 1+ (Negative); Color,Urine YELLOW (Yellow); Glucose,Urine (UA) Negative (Negative); Ketones,Urine Negative (Negative); Leukocyte Esterase,Urine Negative (Negative); Nitrate,Urine Negative (Negative); PH,Urine 7.5 (5.0-8.5); Protein,Urine Negative (Negative); Urobilinogen,Urine 0.2 EU/dl (0.2)
[2022-01-11 00:01] VITALS: BP 131/68; PULSE 83; O2SAT 95
--- NOTE | 2022-01-11 00:30 | HMH.EDABDPAI ---
Discharge Plan Disposition Patient Disposition: Home, Self-Care Condition: Good Prescriptions Prescriptions: New ketorolac 10 mg tablet 10 mg PO Q8H PRN (Reason: pain) 3 Days Qty: 10 0RF tamsulosin [Flomax] 0.4 mg capsule 0.4 mg PO DAILY Qty: 14 0RF hydrocodone-acetaminophen 5-325 mg tablet 1 tab PO DAILY PRN (Reason: pain) Qty: 7 0RF Rx Instructions: Please use every 8 hours for severe pain that does not respond to tylenol or ibuprofen No Action tiopronin 300 MG tablet,delayed release (DR/EC) 300 mg PO BID tamsulosin 0.4 MG capsule 0.4 mg PO HS 30 Days Qty: 30 0RF ketorolac 10 MG tablet 10 mg PO Q6HP MDD 40mg/day PRN (Reason: Breakthru Moderate Pain) 4 Days Qty: 12 0RF Rx Instructions: Therapy initiated with IV/IM dose doxycycline hyclate 100 MG tablet,delayed release (DR/EC) 100 mg PO Q12 7 Days Qty: 14 0RF ondansetron 4 MG tablet,disintegrating 4 mg PO TIDP PRN (Reason: Nausea) 4 Days Qty: 12 0RF Referrals Follow up/Referrals: Arun Scott MD [Primary Care Provider] - See instructions Kelvin Peralta MD [Staff Physician] - See instructions (2mm Renal Stone with severe hydronephrosis, no renal injury/WHIT ) Activity Restrictions/Add. Instructions Additional Instructions/Restrictions: Please follow up with your urology Clinical Impressions Clinical Impression: Renal colic on left side Instructions Patient Instructions: Kidney Stones -- Adult, DI for Acute Abdominal Pain Discharge ED Provider: Akila Alatorre Abdominal Pain HPI General Chief Complaint: Abdominal Pain Stated Complaint: poss kidney stone Time Seen by Provider: 01/10/22 21:00 Mode of Arrival: Wheelchair Source of Information: Patient Limitations: No Limitations Description of Symptoms (Recalled from ER Triage Doc. by RN): pt c/o lt abd pain that started s hour ago History of Present Illness HPI narrative: Mr. Sandhu is a 21 yo male w/ PMH for recurrent nephrolithiasis 2/2 to uric acid elevation presenting to the ED for acute onset, severe, constant LLQ abdominal pain which began a few hours prior to arrival. Patient denies any fevers, chills, vomiting or other infectious like symptoms. No recent trauma to abdomen. Reports normal urinary output and normal bowel movements. Reports this feels like his typical stone pain. No testicular or scrotal pain. No penile lesions or discharge. MD complaint: abdominal pain Onset (ago): hour(s) Consistency: constant Location: LLQ Severity: severe Severity scale (1-10): >10 Quality: sharp Radiation: LLQ Relieving factors: nothing Exacerbating factors: nothing Context: history of similar episodes Associated symptoms: denies other symptoms Related Data Home Medications Medication Instructions Recorded Confirmed tiopronin 300 mg tablet,delayed 300 mg PO BID Kidney stones 10/14/21 10/14/21 release Previous Rx's Medication Instructions Recorded ketorolac 10 mg tablet 10 mg PO Q6HP PRN Breakthru 10/15/21 Moderate Pain 4 days #12 tabs tamsulosin 0.4 mg capsule 0.4 mg PO HS 30 days #30 caps 10/15/21 doxycycline hyclate 100 mg 100 mg PO Q12 7 days #14 tabs 11/22/21 tablet,delayed release ondansetron 4 mg disintegrating 4 mg PO TIDP PRN Nausea 4 days #12 11/22/21 tablet tabs hydrocodone 5 mg-acetaminophen 325 1 tab PO DAILY PRN pain #7 tabs 01/11/22 mg tablet ketorolac 10 mg tablet 10 mg PO Q8H PRN pain 3 days #10 01/11/22 tabs tamsulosin 0.4 mg capsule (Flomax) 0.4 mg PO DAILY #14 caps 01/11/22 Allergies Allergy/AdvReac Type Severity Reaction Status Date / Time No Known Allergies Allergy Verified 03/10/21 11:53 PFSH PFS Social History Smoking Status: Never smoker second hand exposure: No alcohol intake: never substance use type: denies use current occupational status: employed Travel in the last 8 weeks: None household members: family housing:
[2022-01-11 00:56] VITALS: BP 125/62; PULSE 79; RESP 16; TEMP 36.6; O2SAT 96
[2022-01-11 01:31] LABS: Reflex Lactic Add Lactic Reflex
== END 2022-01-11 00:59 | disposition home or self-care (01) ==
PROVIDERS: Emergency Provider Student in an Organized Health Care Education/Training Program; PCP Family Medicine
DX: N13.2 Hydronephrosis with renal and ureteral calculous obstruction (principal); Z87.442 Personal history of urinary calculi
CPT/HCPCS: 74176; 80053; 81001; 83605; 83690; 85025; 96361; 96374; 96375; 96376; 99284

== ENCOUNTER 2022-02-21 17:22 | Emergency (ER) | payer BC, SELFPAY ==
[2022-02-21 17:30] VITALS: BP 173/95; PULSE 100; RESP 22; TEMP 36.4; O2SAT 99; BMI 29.2
[2022-02-21 17:44] LABS: Basophils # 0.1 K/mm3 (0-0.2); Eosinophils # 0.2 K/mm3 (0.0-0.4); Eosinophils % 2.4 % (0.1-12.0); Hematocrit 52.6 % (42.0-52.0); Lymphocytes # 2.1 K/mm3 (0.7-4.5); Lymphocytes % 25.1 % (10-50); Mean Corpuscular HGB Conc 32.4 g/dL (31.8-35.4); Mean Corpuscular Hemoglobin 27.8 pg (27.0-31.2); Mean Corpuscular Volume 85.8 fl (80-94); Mean Platelet Volume 7.9 fl (7.4-10.4); Monocytes # 0.4 K/mm3 (0.1-1.0); Monocytes % 4.4 % (1.7-9.3); Neutrophils # 5.6 K/mm3 (1.8-7.8); Neutrophils % 67.1 % (37.0-80.0); Platelet Count 303 K/mm3 (142-424); Red Blood Count 6.13 M/mm3 (4.60-6.20); Red Cell Distribution Width 13.1 % (11.5-17.5); White Blood Count 8.4 K/mm3 (4.8-10.8)
[2022-02-21 17:45] LABS: Chloride 102 mmol/L (98-107)
[2022-02-21 17:46] LABS: Potassium 4.2 mmoL/L (3.5-5.1); Sodium 142 mmol/L (136-145)
[2022-02-21 17:48] LABS: Alanine Aminotransferase 52 U/L (12-78); Aspartate Amino Transferase 35 U/L (17-59); Blood Urea Nitrogen 13 mg/dl (9-20); Creatinine Clearance Estimated 142 mL/min (50-200); Estimated Glomerular Filt Rate 107 ml/min (>60); GFR (African American) 129 ML/MIN (>60)
[2022-02-21 17:49] LABS: Albumin Level 4.9 g/dl (3.5-5.0); Albumin/Globulin Ratio 1.5 (1.1-1.8); Alkaline Phosphatase 75 U/L (38-126); Anion Gap 16.2 mEq/L (5-15); Bilirubin,Total 0.5 mg/dl (0.2-1.3); Calcium 9.5 mg/dl (8.4-10.2); Carbon Dioxide 28 mmol/L (22.0-30.0); Globulin 3.2 g/dL (1.3-3.2); Glucose 156 mg/dl (74-100); Total Protein,Serum 8.1 g/dl (6.3-8.2)
[2022-02-21 18:00] VITALS: BP 140/61; PULSE 92; RESP 18; O2SAT 96
--- NOTE | 2022-02-21 18:18 | HMH.EDGENADL ---
Discharge Plan Disposition Patient Disposition: Home, Self-Care Condition: Good Prescriptions Prescriptions: New ketorolac 10 mg tablet 10 mg PO Q8H PRN (Reason: pain) Qty: 20 0RF hydrocodone-acetaminophen 5-325 mg tablet 1 tab PO Q8H PRN (Reason: pain) Qty: 12 0RF tamsulosin [Flomax] 0.4 mg capsule 0.4 mg PO DAILY Qty: 7 0RF No Action tiopronin 300 MG tablet,delayed release (DR/EC) 300 mg PO BID tamsulosin [Flomax] 0.4 mg capsule 0.4 mg PO DAILY Referrals Follow up/Referrals: Arun Scott MD [Primary Care Provider] - See instructions Activity Restrictions/Add. Instructions Additional Instructions/Restrictions: You were evaluated in the emergency department today and diagnosed with a right 4 mm kidney stone. Please potato picker your prescriptions at the pharmacy and take them as prescribed. Encourage oral hydration with plenty of water. Call your urologist in the morning and arrange outpatient follow-up. Return to the emergency department for any new or worsening symptoms, such as decreased urine output, fever, inability to tolerate oral intake, or intractable pain. Clinical Impressions Clinical Impression: Obstruction of right ureteropelvic junction (UPJ) due to stone Stand Alone Forms Stand Alone Forms: Work/School Release Instructions Patient Instructions: DI for Kidney Stones, DI for Acute Pain -- Adult Discharge ED Provider: Consuelo Saravia General Adult HPI General Chief complaint: PAIN Stated complaint: poss kidney stone Time Seen by Provider: 02/21/22 17:26 Mode of Arrival: Ambulatory Source of Information: Patient Limitations: No Limitations Description of Symptoms (Recalled from ER Triage Doc. by RN): patient states he started having severe right sided flank pain, rating it 7/10. States he has a history of kidney stones. History of Present Illness HPI narrative: This patient is a 21-year-old male with a history of recurrent nephrolithiasis requiring multiple procedures in the past presenting to the emergency department for evaluation of right flank pain that started approximately 45 minutes prior to arrival. He states that it is severe and constant. It feels like prior kidney stones. He denies any recent fevers, chills, and nausea, vomiting, changes in bowel movements, rashes, or swelling. He does admit to mild dysuria. He did not take any medications prior to arrival. Nothing makes his symptoms better or worse. Related Data Home Medications Medication Instructions Recorded Confirmed tiopronin 300 mg tablet,delayed 300 mg PO BID Kidney stones 10/14/21 02/21/22 release tamsulosin 0.4 mg capsule (Flomax) 0.4 mg PO DAILY Kidney stones 02/21/22 02/21/22 Previous Rx's Medication Instructions Recorded hydrocodone 5 mg-acetaminophen 325 1 tab PO Q8H PRN pain #12 tabs 02/21/22 mg tablet ketorolac 10 mg tablet 10 mg PO Q8H PRN pain #20 tabs 02/21/22 tamsulosin 0.4 mg capsule (Flomax) 0.4 mg PO DAILY #7 caps 02/21/22 Allergies Allergy/AdvReac Type Severity Reaction Status Date / Time No Known Allergies Allergy Verified 02/21/22 17:57 PFSH [facility] 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 current occupational exposures/hazards: No caffeine: No ROS Obtained: Yes All systems reviewed & no additional complaints except as documented 14 point rev
[2022-02-21 18:30] VITALS: BP 138/58; PULSE 89; RESP 18; O2SAT 96
--- NOTE | 2022-02-21 18:42 | XR_ITS ---
PROCEDURE INFORMATION: Exam: XR Abdomen Exam date and time: 02/21/2022 7:24 PM Age: 21 years old Clinical indication: Abdominal pain; Flank; Right; Additional info: R flank pain TECHNIQUE: Imaging protocol: Radiologic exam of the abdomen. Views: Frontal supine view of the abdomen. 1 View. COMPARISON: CT ABDOMEN PELVIS WO CON 01/10/2022 9:24 PM FINDINGS: Gastrointestinal tract: Normal. No bowel dilation. Bones/joints: Mild scoliosis. No fracture. IMPRESSION: No acute findings.
[2022-02-21 18:53] LABS: Microscopic, Urine URINE MICROSCOPIC (MICROSCOPIC)
[2022-02-21 18:55] LABS: Appearance,Urine CLEAR (Clear); Bilirubin,Urine Negative (Negative); Blood, Urine 3+ (Negative); Color,Urine YELLOW (Yellow); Glucose,Urine (UA) Negative (Negative); Ketones,Urine Negative (Negative); Leukocyte Esterase,Urine Negative (Negative); Nitrate,Urine Negative (Negative); PH,Urine 6.5 (5.0-8.5); Protein,Urine 2+ (Negative); Specific Gravity, Urine >= 1.030 (1.005-1.030); Urobilinogen,Urine 0.2 EU/dl (0.2)
[2022-02-21 19:05] LABS: Bacteria,Urine Trace /lpf; WBC,Urine Occasional #/hpf (0-3)
--- NOTE | 2022-02-21 19:39 | CT_ITS ---
PROCEDURE INFORMATION: Exam: CT Abdomen And Pelvis Without Contrast Exam date and time: 02/21/2022 7:36 PM Age: 21 years old Clinical indication: Abdominal pain; Flank; Right; Additional info: R flank pain TECHNIQUE: Imaging protocol: Computed tomography of the abdomen and pelvis without contrast. Radiation optimization: All CT scans at this facility use at least one of these dose optimization techniques: automated exposure control; mA and/or kV adjustment per patient size (includes targeted exams where dose is matched to clinical indication); or iterative reconstruction. COMPARISON: CT ABDOMEN PELVIS WO CON 01/10/2022 9:24 PM FINDINGS: Liver: Diffuse low-attenuation of the liver. No mass. Gallbladder and bile ducts: No calcified stones. No ductal dilation. Pancreas: Parenchymal enhancement is not evaluated without contrast. No ductal dilation. Spleen: Parenchymal enhancement is not evaluated without contrast. No splenomegaly. Adrenal glands: No mass. Kidneys and ureters: Mild right-sided hydronephrosis with 4 mm calcification within the proximal right ureter near the UPJ. Stomach and bowel: No obstruction. No mucosal thickening. Appendix: No evidence of appendicitis. Intraperitoneal space: No free air. No significant fluid collection. Vasculature: Limited evaluation without contrast. No abdominal aortic aneurysm. Lymph nodes: No enlarged lymph nodes. Urinary bladder: No acute abnormality. Reproductive: No acute abnormality. Bones/joints: Mild scoliosis. No acute fracture. Soft tissues: Limited evaluation without contrast. No significant soft tissue swelling. IMPRESSION: Mild right-sided hydronephrosis with 4 mm calcification within the proximal right ureter near the UPJ.
[2022-02-21 20:44] VITALS: BP 134/74; PULSE 81; RESP 18; TEMP 36.4; O2SAT 97
== END 2022-02-21 20:52 | disposition home or self-care (01) ==
PROVIDERS: Emergency Provider Emergency Medicine; PCP Family Medicine
DX: N20.2 Calculus of kidney with calculus of ureter (principal); R10.31 Right lower quadrant pain; Z88.5 Allergy status to narcotic agent; Z88.6 Allergy status to analgesic agent
CPT/HCPCS: 74018; 74176; 80053; 81001; 85025; 96361; 96374; 96375; 96376; 99285; J2405

== ENCOUNTER 2022-02-22 10:15 | Emergency (ER) | payer BC, SELFPAY ==
[2022-02-22 10:17] VITALS: BP 147/66; PULSE 91; RESP 19; TEMP 36.4; O2SAT 99; BMI 29.2
--- NOTE | 2022-02-22 10:42 | HMH.EDGENADL ---
Discharge Plan Disposition Patient Disposition: Home, Self-Care Condition: Good Prescriptions Prescriptions: No Action tiopronin 300 MG tablet,delayed release (DR/EC) 300 mg PO BID tamsulosin [Flomax] 0.4 mg capsule 0.4 mg PO DAILY ketorolac 10 mg tablet 10 mg PO Q8H PRN (Reason: pain) Qty: 20 0RF hydrocodone-acetaminophen 5-325 mg tablet 1 tab PO Q8H PRN (Reason: pain) Qty: 12 0RF tamsulosin [Flomax] 0.4 mg capsule 0.4 mg PO DAILY Qty: 7 0RF Referrals Follow up/Referrals: Arun Scott MD [Primary Care Provider] - See instructions Clinical Impressions Clinical Impression: Calcium nephrolithiasis Instructions Patient Instructions: DI for Kidney Stones Discharge ED Provider: Jerel Park General Adult HPI General Chief complaint: PAIN Stated complaint: side and back pain, has kidney stone Time Seen by Provider: 02/22/22 10:15 Mode of Arrival: Wheelchair Source of Information: Patient Limitations: No Limitations Description of Symptoms (Recalled from ER Triage Doc. by RN): known kidney stoney, pain came back prior to arrival. PT was unable to pepper picker medicine from last night. History of Present Illness HPI narrative: Patient is a 21-year-old male with a previous history of nephrolithiasis who presents with persistent pain. He states that he was seen in the ED yesterday and was diagnosed with a kidney stone. He was given medications but was unable to pick them up from the pharmacy. He has continued to have persistent pain. He denies any fever or chills. Denies any abdominal pain. He continues to locate his pain in his back. He says it is a stabbing sensation. Related Data Home Medications Medication Instructions Recorded Confirmed tiopronin 300 mg tablet,delayed 300 mg PO BID Kidney stones 10/14/21 02/21/22 release tamsulosin 0.4 mg capsule (Flomax) 0.4 mg PO DAILY Kidney stones 02/21/22 02/21/22 Previous Rx's Medication Instructions Recorded hydrocodone 5 mg-acetaminophen 325 1 tab PO Q8H PRN pain #12 tabs 02/21/22 mg tablet ketorolac 10 mg tablet 10 mg PO Q8H PRN pain #20 tabs 02/21/22 tamsulosin 0.4 mg capsule (Flomax) 0.4 mg PO DAILY #7 caps 02/21/22 Allergies Allergy/AdvReac Type Severity Reaction Status Date / Time No Known Allergies Allergy Verified 02/21/22 17:57 [facility] 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 current occupational exposures/hazards: No caffeine: No ROS Obtained: Yes All systems reviewed & no additional complaints except as documented A 14 point review of system was obtained and otherwise negative except per HPI Physical Exam General General appearance: alert Comment: In substantial pain Head Head exam: atraumatic, normocephalic and normal inspection Eye Eye exam: Present normal appearance, PERRL and EOMI ENT ENT exam: Present normal exam, normal oropharynx, mucous membranes moist, TM's normal bilaterally and normal external ear exam Neck Neck exam: Present normal inspection, full ROM and trachea midline; Absent meningismus or lymphadenopathy Chest Chest inspection: Present normal inspection and symmetric chest wall rise; Absent tenderness Respiratory Respiratory exam: Present normal lung sounds bilaterally; Absent respiratory distress Cardiovascular Cardiovascular exam: Present regular rate and n
[2022-02-22 11:00] VITALS: BP 146/76; PULSE 95; RESP 18; O2SAT 96
[2022-02-22 11:56] VITALS: BP 147/89; PULSE 87; RESP 18; TEMP 36.4; O2SAT 99
== END 2022-02-22 11:57 | disposition home or self-care (01) ==
PROVIDERS: Emergency Provider Student in an Organized Health Care Education/Training Program; PCP Family Medicine
DX: N20.0 Calculus of kidney (principal)
CPT/HCPCS: 96365; 96375; 99284; J2405

== ENCOUNTER 2022-06-09 06:21 | Emergency (ER) | payer BC, SELFPAY ==
[2022-06-09 06:22] VITALS: BP 157/89; PULSE 119; RESP 16; TEMP 36.9; O2SAT 97; BMI 31.1
--- NOTE | 2022-06-09 06:29 | CT_ITS ---
PROCEDURE INFORMATION: Exam: CT Abdomen And Pelvis Without Contrast Exam date and time: 06/09/2022 6:44 AM Age: 21 years old Clinical indication: Abdominal pain; Patient HX: PT states pain started around an hour ago; Additional info: Lt flank pain TECHNIQUE: Imaging protocol: Computed tomography of the abdomen and pelvis without contrast. Radiation optimization: All CT scans at this facility use at least one of these dose optimization techniques: automated exposure control; mA and/or kV adjustment per patient size (includes targeted exams where dose is matched to clinical indication); or iterative reconstruction. Other protocol: This patient has received 3 known CTs and 0 known cardiac nuclear medicine studies in the 12 months prior to the current study. COMPARISON: CT ABDOMEN PELVIS WO CON 02/21/2022 7:36 PM FINDINGS: Liver: Borderline/early fatty infiltration of the liver (does not meet technical criteria). Gallbladder and bile ducts: No calcified stones. No ductal dilation. Pancreas: Normal. No ductal dilation. Spleen: Punctate calcified splenic granulomata. Adrenal glands: No mass. Kidneys and ureters: 4 mm calculus in the proximal left ureter with moderate left hydronephrosis. There is an additional punctate nonobstructive calculus in the left upper renal pole. The left kidney is enlarged compared to the right. Stomach and bowel: No obstruction. Appendix: No evidence of appendicitis. Intraperitoneal space: No free air. No significant fluid collection. Vasculature: No abdominal aortic aneurysm. Lymph nodes: No enlarged lymph nodes. Urinary bladder: Unremarkable as visualized. Reproductive: Unremarkable as visualized. Bones/joints: No acute fracture. Soft tissues: Tiny fat containing umbilical hernia. IMPRESSION: 4 mm calculus in the proximal left ureter with moderate left hydronephrosis. There is an additional punctate nonobstructive calculus in the left upper renal pole. Otherwise, as above.
[2022-06-09 06:32] VITALS: BP 116/66; PULSE 128; O2SAT 99
--- NOTE | 2022-06-09 06:40 | PC.NURSE ---
Pt gone to RAD via wheelchair
[2022-06-09 06:46] LABS: Chloride 105 mmol/L (98-107)
[2022-06-09 06:47] LABS: Basophils # 0.2 K/mm3 (0-0.2); Basophils % 1.3 % (0.1-2.0); Eosinophils # 0.2 K/mm3 (0.0-0.4); Hematocrit 51.3 % (42.0-52.0); Hemoglobin 16.4 g/dL (14.1-18.0); Lymphocytes # 4.2 K/mm3 (0.7-4.5); Lymphocytes % 36.2 % (10-50); Mean Corpuscular Hemoglobin 27.1 pg (27.0-31.2); Mean Corpuscular Volume 84.8 fl (80-94); Monocytes # 0.7 K/mm3 (0.1-1.0); Monocytes % 5.9 % (1.7-9.3); Neutrophils # 6.3 K/mm3 (1.8-7.8); Neutrophils % 54.6 % (37.0-80.0); Platelet Count 394 K/mm3 (142-424); Potassium 4.4 mmoL/L (3.5-5.1); Red Blood Count 6.05 M/mm3 (4.60-6.20); Red Cell Distribution Width 13.1 % (11.5-17.5); Sodium 142 mmol/L (136-145); White Blood Count 11.5 K/mm3 (4.8-10.8)
[2022-06-09 06:49] LABS: Alanine Aminotransferase 63 U/L (12-78); Aspartate Amino Transferase 35 U/L (17-59); Blood Urea Nitrogen 23 mg/dl (9-20); Creatinine Clearance Estimated 116 mL/min (50-200); Estimated Glomerular Filt Rate 85 ml/min (>60); GFR (African American) 102 ML/MIN (>60)
[2022-06-09 06:50] LABS: Albumin Level 4.9 g/dl (3.5-5.0); Albumin/Globulin Ratio 1.6 (1.1-1.8); Alkaline Phosphatase 64 U/L (38-126); Anion Gap 12.4 mEq/L (5-15); Bilirubin,Total 0.5 mg/dl (0.2-1.3); Calcium 9.3 mg/dl (8.4-10.2); Carbon Dioxide 29 mmol/L (22.0-30.0); Globulin 3.1 g/dL (1.3-3.2); Glucose 135 mg/dl (74-100)
--- NOTE | 2022-06-09 06:50 | PC.NURSE ---
Pt back from RAD
[2022-06-09 07:01] VITALS: BP 111/71; PULSE 102; O2SAT 99
--- NOTE | 2022-06-09 07:19 | PC.NURSE ---
DR PIERCE AT BEDSIDE
--- NOTE | 2022-06-09 07:21 | HMH.EDABDPAI ---
Discharge Plan Disposition Patient Disposition: Home, Self-Care Prescriptions Prescriptions: New tamsulosin [Flomax] 0.4 mg capsule 0.4 mg PO DAILY Qty: 14 0RF ondansetron 4 mg tablet,disintegrating 4 mg PO Q8H 5 Days Qty: 15 0RF No Action tiopronin 300 MG tablet,delayed release (DR/EC) 300 mg PO BID tamsulosin [Flomax] 0.4 mg capsule 0.4 mg PO DAILY ketorolac 10 mg tablet 10 mg PO Q8H PRN (Reason: pain) Qty: 20 0RF hydrocodone-acetaminophen 5-325 mg tablet 1 tab PO Q8H PRN (Reason: pain) Qty: 12 0RF tamsulosin [Flomax] 0.4 mg capsule 0.4 mg PO DAILY Qty: 7 0RF Referrals Follow up/Referrals: Arun Scott MD [Primary Care Provider] - See instructions Clinical Impressions Clinical Impression: Renal colic on left side Instructions Patient Instructions: DI for Kidney Stones Discharge ED Provider: Jared (ED)Mahesh Abdominal Pain HPI General Chief Complaint: Abdominal Pain Stated Complaint: possible kidney stone Time Seen by Provider: 06/09/22 07:00 Mode of Arrival: Ambulatory Source of Information: Patient and Medical Record Limitations: No Limitations Description of Symptoms (Recalled from ER Triage Doc. by RN): pt c/o lt flank pain that started a hour ago. pt has hx of kidney stones History of Present Illness HPI narrative: pt with lt flank pain with hx of kidney stones complaint: flank pain Onset (ago): hour(s) Consistency: colicky Location: L flank Severity: severe Associated symptoms: denies other symptoms Related Data Home Medications Medication Instructions Recorded Confirmed tiopronin 300 mg tablet,delayed 300 mg PO BID Kidney stones 10/14/21 02/21/22 release tamsulosin 0.4 mg capsule (Flomax) 0.4 mg PO DAILY Kidney stones 02/21/22 02/21/22 Previous Rx's Medication Instructions Recorded hydrocodone 5 mg-acetaminophen 325 1 tab PO Q8H PRN pain #12 tabs 02/21/22 mg tablet ketorolac 10 mg tablet 10 mg PO Q8H PRN pain #20 tabs 02/21/22 tamsulosin 0.4 mg capsule (Flomax) 0.4 mg PO DAILY #7 caps 02/21/22 ondansetron 4 mg disintegrating 4 mg PO Q8H 5 days #15 tabs 06/09/22 tablet tamsulosin 0.4 mg capsule (Flomax) 0.4 mg PO DAILY #14 caps 06/09/22 Allergies Allergy/AdvReac Type Severity Reaction Status Date / Time No Known Allergies Allergy Verified 02/21/22 17:57 PFSH PFS Disclaimer: The information contained in this section may have been updated after the patient was seen, as this information can be updated by other users. 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 current occupational exposures/hazards: No caffeine: No ROS Obtained: Yes All systems reviewed & no additional complaints except as documented Physical Exam General General appearance: alert Head Head exam: normocephalic Eye Eye exam: Present PERRL and EOMI ENT ENT exam: Present mucous membranes moist Neck Neck exam: Present trachea midline Respiratory Respiratory exam: Absent respiratory distress Cardiovascular Cardiovascular exam: Present regular rate Abdominal Exam Abdominal exam: Present soft Extremities Exam Extremities exam: Present full ROM Neurological Exam Neurological exam: Present alert, oriented X3 and CN II-XII intact; Absent motor sensory deficit Psychiatric Psychiatric exam: Present normal affect Skin Skin exam: Absent r
--- NOTE | 2022-06-09 07:33 | PC.NURSE ---
PT ASSISTED TO BR
[2022-06-09 07:38] LABS: Microscopic, Urine URINE MICROSCOPIC (MICROSCOPIC)
[2022-06-09 07:50] VITALS: BP 131/67; PULSE 96; RESP 17; TEMP 36.7; O2SAT 100
[2022-06-09 07:51] LABS: Appearance,Urine CLEAR (Clear); Bilirubin,Urine Negative (Negative); Blood, Urine 2+ (Negative); Color,Urine YELLOW (Yellow); Glucose,Urine (UA) Negative (Negative); Ketones,Urine Negative (Negative); Leukocyte Esterase,Urine Negative (Negative); Nitrate,Urine Negative (Negative); PH,Urine 7.5 (5.0-8.5); Protein,Urine Negative (Negative); Specific Gravity, Urine 1.015 (1.005-1.030); Urobilinogen,Urine 0.2 EU/dl (0.2)
[2022-06-09 08:04] LABS: Bacteria,Urine Trace /lpf; Squamous Epithelial Cell,Urine Occasional #/hpf (0-5)
== END 2022-06-09 07:50 | disposition home or self-care (01) ==
PROVIDERS: Emergency Provider Emergency Medicine; PCP Family Medicine
DX: N23 Unspecified renal colic (principal); Z87.442 Personal history of urinary calculi
CPT/HCPCS: 74176; 80053; 81001; 85025; 96361; 96374; 96375; 99285; J0131; J2405

== ENCOUNTER 2022-12-17 11:44 | Emergency (ER) | payer BC, SELFPAY ==
[2022-12-17 11:50] VITALS: BP 164/99; PULSE 118; RESP 16; TEMP 36.9; O2SAT 99; BMI 30.1
--- NOTE | 2022-12-17 11:52 | CT_ITS ---
FINAL REPORT TECHNIQUE: Axial images through the abdomen and pelvis were performed without contrast. This study was performed with techniques to keep radiation doses as low as reasonably achievable, (ALARA). Individualized dose reduction techniques using automated exposure control or adjustment of mA and/or kV according to the patient's size were employed. CLINICAL HISTORY: L CVA tenderness, hx of stones COMPARISON: 06/09/2022 FINDINGS: ABDOMEN: The lung bases are clear. The heart size is normal. There is mild fatty infiltration of the liver. The spleen is normal. No adrenal mass is identified. The aorta is normal in caliber. There is no significant free fluid or adenopathy. There is a less than 3 mm nonobstructing left renal stone. There is mild hydronephrosis and hydroureter secondary to a 3 mm proximal left ureteral stone at the L3 level. PELVIS: The appendix is normal. No ureteral stones identified. The urinary bladder is unremarkable. There is no significant free fluid or adenopathy. IMPRESSION: Mild left hydronephrosis and hydroureter secondary to a proximal left ureteral stone. Nonobstructing left renal stone. Reviewed, Interpreted and Dictated by Rd Goncalves III, MD Transcribed by Johanna Escobar Authenticated and [facility]
--- NOTE | 2022-12-17 11:54 | HMH.EDGENADL ---
Discharge Plan Disposition Patient Disposition: Home, Self-Care Condition: Good Prescriptions Prescriptions: New oxycodone 5 mg tablet 5 mg PO Q6H PRN (Reason: severe pain (scale score 7-10)) Qty: 12 0RF tamsulosin [Flomax] 0.4 mg capsule 0.4 mg PO DAILY Qty: 14 0RF ondansetron 4 mg tablet,disintegrating 4 mg PO Q8H 4 Days Qty: 12 0RF No Action hydrocodone-acetaminophen 5-325 mg tablet 1 tab PO Q6H PRN (Reason: pain) Qty: 10 0RF tiopronin 300 MG tablet,delayed release (DR/EC) 300 mg PO BID tamsulosin [Flomax] 0.4 mg capsule 0.4 mg PO DAILY ketorolac 10 mg tablet 10 mg PO Q8H PRN (Reason: pain) Qty: 20 0RF tamsulosin [Flomax] 0.4 mg capsule 0.4 mg PO DAILY Qty: 7 0RF tamsulosin [Flomax] 0.4 mg capsule 0.4 mg PO DAILY Qty: 14 0RF ondansetron 4 mg tablet,disintegrating 4 mg PO Q8H 5 Days Qty: 15 0RF Referrals Follow up/Referrals: Arun Scott MD [Primary Care Provider] - See instructions Activity Restrictions/Add. Instructions Additional Instructions/Restrictions: As we discussed, you appear to have a left ureteral stone that measures 3 mm. You have been given a prescription for oxycodone, which you can take every 6 hours as needed for severe pain control. You have also been provided with a prescription for Zofran, which you can take every 8 hours as needed for nausea, vomiting. You have also been provided with a prescription for Flomax, please take this as directed. As we discussed, plan to follow-up closely with your primary urologist. Plan to return to the emergency department should you have any persistent, severe nausea, vomiting, fever. Clinical Impressions Clinical Impression: Calculus of left ureter, Acute left flank pain Instructions Patient Instructions: Kidney Stones -- Adult, DI for Kidney Stones Discharge ED Provider: Jg Gaxiola I General Adult HPI General Chief complaint: Back Pain/Injury Stated complaint: left side pain Time Seen by Provider: 12/17/22 12:01 Mode of Arrival: Ambulatory Source of Information: Patient Limitations: No Limitations Description of Symptoms (Recalled from ER Triage Doc. 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 Denies urinary sx. Hx of renal stones. History of Present Illness HPI narrative: Patient is a 22-year-old male with history of kidney stones, follows with urology presented to the emergency department with sudden onset left flank pain. Patient reports that he was woken from sleep 30 minutes to 1 hour ago with severe pain in his left flank. He denies any associated nausea, vomiting. Reports that he has otherwise been in his normal state of health over the past several days. Denies fever, chills, cough, congestion, runny nose, abdominal pain, dysuria, hematuria. Patient reports that previously in June, was diagnosed with a left-sided kidney stone which he passed at that time. Related Data Home Medications Medication Instructions Recorded Confirmed tiopronin 300 mg tablet,delayed 300 mg PO BID Kidney stones 10/14/21 02/21/22 release tamsulosin 0.4 mg capsule (Flomax) 0.4 mg PO DAILY Kidney stones 02/21/22 02/21/22 Previous Rx's Medication Instructions Recorded ketorolac 10 mg tablet 10 mg PO Q8H PRN pain #20 tabs 02/21/22 tamsulosin 0.4 mg capsule (Flomax) 0.4 mg PO DAILY #7 caps 02/21/22 hydrocodone 5 mg-acetaminophen 325 1 tab PO Q6H PRN pain #10 tabs 06/09/22 mg tablet ondansetron 4 mg disintegrating 4 mg PO Q8H 5 days #15 tabs 06/09/22 tablet tamsulosin 0.4 mg capsule (Flomax) 0.4 mg PO DAILY #14 caps 06/09/22 ondansetron 4 mg disintegrating 4 mg PO Q8H 4 days #12 tabs 12/17/22 tablet oxycodone 5 mg tablet 5 mg PO Q6H PRN severe pain (scale 12/17/22 score 7-10) #12 tabs tamsulosin 0.4 mg capsule (Flomax) 0.4 mg PO DAILY #14 caps 12/17/22 Allergies Allergy/AdvReac Type Severity Reaction Stat
--- NOTE | 2022-12-17 11:59 | PC.NURSE ---
Per MD, administer Dilaudid 0.5mg now with a total dose of 1mg. Dilaudid 0.5mg IVP administered at this time. Pt to CT.
--- NOTE | 2022-12-17 12:10 | PC.NURSE ---
From CT. Reports improved pain after Dilaudid administered.
[2022-12-17 12:13] LABS: Chloride 104 mmol/L (98-107); Potassium 4.6 mmoL/L (3.5-5.1)
[2022-12-17 12:14] LABS: Basophils # 0.1 K/mm3 (0-0.2); Basophils % 0.9 % (0.1-2.0); Eosinophils # 0.2 K/mm3 (0.0-0.4); Eosinophils % 2.6 % (0.1-12.0); Hematocrit 52.4 % (42.0-52.0); Hemoglobin 16.5 g/dL (14.1-18.0); Lymphocytes # 2.4 K/mm3 (0.7-4.5); Lymphocytes % 28.3 % (10-50); Mean Corpuscular HGB Conc 31.5 g/dL (31.8-35.4); Mean Corpuscular Hemoglobin 26.9 pg (27.0-31.2); Mean Corpuscular Volume 85.4 fl (80-94); Mean Platelet Volume 7.7 fl (7.4-10.4); Monocytes # 0.6 K/mm3 (0.1-1.0); Monocytes % 7.5 % (1.7-9.3); Neutrophils # 5.2 K/mm3 (1.8-7.8); Neutrophils % 60.7 % (37.0-80.0); Platelet Count 272 K/mm3 (142-424); Red Blood Count 6.14 M/mm3 (4.60-6.20); Red Cell Distribution Width 13.3 % (11.5-17.5); Sodium 143 mmol/L (136-145); White Blood Count 8.5 K/mm3 (4.8-10.8)
[2022-12-17 12:16] LABS: Anion Gap 14.6 mEq/L (5-15); Blood Urea Nitrogen 12 mg/dl (9-20); Calcium 10.3 mg/dl (8.4-10.2); Carbon Dioxide 29 mmol/L (22.0-30.0); Creatinine Clearance Estimated 126 mL/min (50-200); Estimated Glomerular Filt Rate 93 ml/min (>60); GFR (African American) 113 ML/MIN (>60); Glucose 103 mg/dl (74-100)
[2022-12-17 12:32] VITALS: BP 171/99; PULSE 102; O2SAT 98
--- NOTE | 2022-12-17 12:32 | PC.NURSE ---
Per ER Dilaudid 0.5 mg given IV at this time to total dose of Dilaudid 1mg IV as ordered. pt resting in bed, IVF infusing, call button within reach
[2022-12-17 13:00] VITALS: BP 147/68; PULSE 103; O2SAT 96
[2022-12-17 13:05] LABS: Microscopic, Urine URINE MICROSCOPIC (MICROSCOPIC)
[2022-12-17 13:11] LABS: Appearance,Urine CLEAR (Clear); Bilirubin,Urine Negative (Negative); Blood, Urine TRACE-I (Negative); Color,Urine YELLOW (Yellow); Glucose,Urine (UA) Negative (Negative); Ketones,Urine Negative (Negative); Leukocyte Esterase,Urine Negative (Negative); Nitrate,Urine Negative (Negative); Protein,Urine Negative (Negative); Specific Gravity, Urine 1.025 (1.005-1.030); Urobilinogen,Urine 0.2 EU/dl (0.2)
--- NOTE | 2022-12-17 13:16 | PC.NURSE ---
preliminary CT results given to ER MD at this time.
[2022-12-17 13:27] LABS: Bacteria,Urine Trace /lpf; RBC,Urine Occasional #/hpf (0-3); Squamous Epithelial Cell,Urine Occasional #/hpf (0-5)
[2022-12-17 13:30] VITALS: BP 147/75; PULSE 88; RESP 18; O2SAT 95
--- NOTE | 2022-12-17 14:16 | PC.NURSE ---
Rounded on patient warm blanket applied; Call rush within reach
--- NOTE | 2022-12-17 14:24 | PC.NURSE ---
JALEEL ESCOBAR AT
[2022-12-17 14:54] VITALS: BP 142/68; PULSE 87; RESP 16; TEMP 36.9; O2SAT 95
== END 2022-12-17 14:58 | disposition home or self-care (01) ==
PROVIDERS: Emergency Provider Emergency Medicine; PCP Family Medicine
DX: N13.30 Unspecified hydronephrosis (principal); N20.2 Calculus of kidney with calculus of ureter
CPT/HCPCS: 74176; 80048; 81001; 85025; 96361; 96374; 96375; 99285; J2405

== ENCOUNTER 2023-03-13 06:46 | Emergency (ER) | payer SELFPAY ==
[2023-03-13 06:48] VITALS: BP 173/111; PULSE 119; RESP 20; TEMP 36.8; O2SAT 97; BMI 29.2
--- NOTE | 2023-03-13 06:57 | CT_ITS ---
PROCEDURE INFORMATION: Exam: CT Abdomen And Pelvis With Contrast Exam date and time: 03/13/2023 8:18 AM Age: 22 years old Clinical indication: Abdominal pain; Flank; Right lower quadrant (rlq); Additional info: R flank/rlq abdominal pain/previous stones TECHNIQUE: Imaging protocol: Computed tomography of the abdomen and pelvis with contrast. Radiation optimization: All CT scans at this facility use at least one of these dose optimization techniques: automated exposure control; mA and/or kV adjustment per patient size (includes targeted exams where dose is matched to clinical indication); or iterative reconstruction. Contrast material: ISOVUE 370; Contrast volume: 75 ml; Contrast route: IV; REPORTING DATA: Count of CT and Cardiac NM exams in prior 12 months: This patient has received 2 known CTs and 0 known cardiac nuclear medicine studies in the 12 months prior to the current study. COMPARISON: CT ABDOMEN PELVIS WO CON 12/17/2022 12:02 PM FINDINGS: Lungs: Lung bases are clear. Liver: There is fatty infiltration throughout the liver which is otherwise unremarkable. Gallbladder and bile ducts: Normal. No calcified stones. No ductal dilation. Pancreas: Normal. No ductal dilation. Spleen: Spleen is borderline enlarged, unchanged. Scattered granulomatous calcifications. Adrenal glands: Normal. No mass. Kidneys and ureters: Tiny nonobstructing left renal stone otherwise kidneys are unremarkable. No hydronephrosis. Stomach and bowel: Unremarkable. No obstruction. No mucosal thickening. Appendix: No evidence of acute appendicitis. Intraperitoneal space: Unremarkable. No free air. No significant fluid collection. Vasculature: Unremarkable. No abdominal aortic aneurysm. Lymph nodes: Unremarkable. No enlarged lymph nodes. Urinary bladder: Unremarkable as visualized. Reproductive: Unremarkable as visualized. Bones/joints: Unremarkable. No acute fracture. Soft tissues: Unremarkable. IMPRESSION: 1. No acute findings within the abdomen or pelvis. 2. Tiny nonobstructing left renal stone otherwise unremarkable CT exam of the kidneys and collecting system.
--- NOTE | 2023-03-13 06:58 | [facility].EDGENADL ---
Discharge Plan Disposition Patient Disposition: Home, Self-Care Prescriptions Prescriptions: New tamsulosin [Flomax] 0.4 mg capsule 0.4 mg PO DAILY Qty: 10 0RF Rx Instructions: Do not combine with other tamsulosin ondansetron 4 mg tablet,disintegrating 4 mg PO Q6H PRN (Reason: nausea and vomiting) Qty: 10 0RF oxycodone 5 mg tablet 5 mg PO Q8H PRN (Reason: pain) Qty: 9 0RF Rx Instructions: Do not combine with other opiates. Please take Tylenol and ibuprofen first. No Action hydrocodone-acetaminophen 5-325 mg tablet 1 tab PO Q6H PRN (Reason: pain) Qty: 10 0RF tiopronin 300 MG tablet,delayed release (DR/EC) 300 mg PO BID tamsulosin [Flomax] 0.4 mg capsule 0.4 mg PO DAILY ketorolac 10 mg tablet 10 mg PO Q8H PRN (Reason: pain) Qty: 20 0RF tamsulosin [Flomax] 0.4 mg capsule 0.4 mg PO DAILY Qty: 7 0RF tamsulosin [Flomax] 0.4 mg capsule 0.4 mg PO DAILY Qty: 14 0RF ondansetron 4 mg tablet,disintegrating 4 mg PO Q8H 5 Days Qty: 15 0RF oxycodone 5 mg tablet 5 mg PO Q6H PRN (Reason: severe pain (scale score 7-10)) Qty: 12 0RF tamsulosin [Flomax] 0.4 mg capsule 0.4 mg PO DAILY Qty: 14 0RF ondansetron 4 mg tablet,disintegrating 4 mg PO Q8H 4 Days Qty: 12 0RF Referrals Follow up/Referrals: Arun Scott MD [Primary Care Provider] - See instructions Activity Restrictions/Add. Instructions Additional Instructions/Restrictions: At this time is felt you are safe to be discharged home. If new or worsening symptoms please do not hesitate to return the emergency department. It is presumed that you may have a kidney stone that was not seen on CT scan today, however there is no way to be certain. Please take your medications as prescribed for breakthrough pain and follow-up with your family doctor or urologist as soon as you are able for continued evaluation. Clinical Impressions Clinical Impression: Abdominal pain, History of kidney stones, Nausea Instructions Patient Instructions: DI for Acute Abdominal Pain Discharge ED Provider: Flex Tamayo General Adult HPI General Chief complaint: Abdominal Pain Stated complaint: Right side pain,? kidney stone Time Seen by Provider: 03/13/23 06:50 Mode of Arrival: Ambulatory Source of Information: Patient Limitations: No Limitations Description of Symptoms (Recalled from ER Triage Doc. by RN): Right flank pain started approximately 0600. Patient reports history of frequent kidney stones. History of Present Illness HPI narrative: Patient is a 22-year-old male with past medical history of previous kidney stones status post lithotripsy who presents emergency department for evaluation of right flank and right lower quadrant abdominal pain. Onset was acute, occurring at approximately 6 AM. Moderate to severe in intensity. No other acute complaints at this time. Related Data Home Medications Medication Instructions Recorded Confirmed tiopronin 300 mg tablet,delayed 300 mg PO BID Kidney stones 10/14/21 02/21/22 release tamsulosin 0.4 mg capsule (Flomax) 0.4 mg PO DAILY Kidney stones 02/21/22 02/21/22 Previous Rx's Medication Instructions Recorded ketorolac 10 mg tablet 10 mg PO Q8H PRN pain #20 tabs 02/21/22 tamsulosin 0.4 mg capsule (Flomax) 0.4 mg PO DAILY #7 caps 02/21/22 hydrocodone 5 mg-acetaminophen 325 1 tab PO Q6H PRN pain #10 tabs 06/09/22 mg tablet ondansetron 4 mg disintegrating 4 mg PO Q8H 5 days #15 tabs 06/09/22 tablet tamsulosin 0.4 mg capsule (Flomax) 0.4 mg PO DAILY #14 caps 06/09/22 ondansetron 4 mg disintegrating 4 mg PO Q8H 4 days #12 tabs 12/17/22 tablet oxycodone 5 mg tablet 5 mg PO Q6H PRN severe pain (scale 12/17/22 score 7-10) #12 tabs tamsulosin 0.4 mg capsule (Flomax) 0.4 mg PO DAILY #14 caps 12/17/22 ondansetron 4 mg disintegrating 4 mg PO Q6H PRN nausea and 03/13/23 tablet vomiting #10 tabs oxycodone 5 mg tablet 5 mg PO Q8H PRN pain #9 tabs
[2023-03-13 07:03] LABS: Microscopic, Urine URINE MICROSCOPIC (MICROSCOPIC)
[2023-03-13 07:06] LABS: Appearance,Urine CLOUDY (Clear); Bilirubin,Urine Negative (Negative); Blood, Urine Negative (Negative); Color,Urine YELLOW (Yellow); Glucose,Urine (UA) Negative (Negative); Ketones,Urine Negative (Negative); Leukocyte Esterase,Urine Negative (Negative); Nitrate,Urine Negative (Negative); Protein,Urine Negative (Negative); Urobilinogen,Urine 0.2 EU/dl (0.2)
[2023-03-13 07:07] LABS: Basophils % 0.4 % (0.1-2.0); Eosinophils # 0.3 K/mm3 (0.0-0.4); Eosinophils % 3.3 % (0.1-12.0); Hematocrit 47.3 % (42.0-52.0); Hemoglobin 16.6 g/dL (14.1-18.0); Lymphocytes # 2.9 K/mm3 (0.7-4.5); Lymphocytes % 32.4 % (10-50); Mean Corpuscular HGB Conc 35.1 g/dL (31.8-35.4); Mean Corpuscular Hemoglobin 29.9 pg (27.0-31.2); Mean Corpuscular Volume 85.2 fl (80-94); Mean Platelet Volume 7.7 fl (7.4-10.4); Monocytes # 0.7 K/mm3 (0.1-1.0); Monocytes % 7.5 % (1.7-9.3); Neutrophils % 56.4 % (37.0-80.0); Platelet Count 255 K/mm3 (142-424); Red Blood Count 5.55 M/mm3 (4.60-6.20); Red Cell Distribution Width 13.2 % (11.5-17.5); White Blood Count 8.9 K/mm3 (4.8-10.8)
--- NOTE | 2023-03-13 07:12 | PC.NURSE ---
pt to ct
[2023-03-13 07:16] LABS: Alanine Aminotransferase 77 U/L (12-78); Albumin Level 4.8 g/dl (3.5-5.0); Albumin/Globulin Ratio 1.5 (1.1-1.8); Alkaline Phosphatase 66 U/L (38-126); Anion Gap 17.1 mEq/L (5-15); Aspartate Amino Transferase 50 U/L (17-59); Bilirubin,Total 0.4 mg/dl (0.2-1.3); Blood Urea Nitrogen 15 mg/dl (9-20); Calcium 9.6 mg/dl (8.4-10.2); Carbon Dioxide 26 mmol/L (22.0-30.0); Chloride 102 mmol/L (98-107); Creatinine Clearance Estimated 140 mL/min (50-200); Estimated Glomerular Filt Rate 106 ml/min (>60); GFR (African American) 128 ML/MIN (>60); Globulin 3.3 g/dL (1.3-3.2); Glucose 117 mg/dl (74-100); Lipase 45 U/L (23-300); Potassium 4.1 mmoL/L (3.5-5.1); Sodium 141 mmol/L (136-145); Total Protein,Serum 8.1 g/dl (6.3-8.2)
--- NOTE | 2023-03-13 07:22 | PC.NURSE ---
pt returned from ct
[2023-03-13 07:27] LABS: Amorphous Sediment,Urine 3+ /lpf; Bacteria,Urine 1+ /lpf; Squamous Epithelial Cell,Urine Occasional #/hpf (0-5)
[2023-03-13 07:31] VITALS: BP 180/72; PULSE 98; O2SAT 97
--- NOTE | 2023-03-13 07:43 | PC.NURSE ---
pt requesting additional pain medication, made aware
--- NOTE | 2023-03-13 07:56 | PC.NURSE ---
PT MEDICATED PER EMAR, NO FURTHER NEEDS AT THIS TIME. CALL LIGHT WITHIN REACH
[2023-03-13 08:00] VITALS: BP 141/84; PULSE 83; O2SAT 94
--- NOTE | 2023-03-13 08:22 | PC.NURSE ---
DR SUN AT BEDSIDE TO UPDATE PT
--- NOTE | 2023-03-13 09:01 | PC.NURSE ---
DR SUN AT BEDSIDE TO REEVALUATE AND UPDATE PT
[2023-03-13 09:21] VITALS: BP 115/72; PULSE 68; RESP 17; TEMP 36.8; O2SAT 98
--- NOTE | 2023-03-13 09:53 | PC.NURSE ---
pt's father at bedside to take him home
== END 2023-03-13 09:53 | disposition home or self-care (01) ==
PROVIDERS: Emergency Provider Emergency Medicine; PCP Family Medicine
DX: R10.31 Right lower quadrant pain (principal); R00.0 Tachycardia, unspecified; R11.0 Nausea; Z87.442 Personal history of urinary calculi
CPT/HCPCS: 74177; 80053; 81001; 83690; 85025; 96361; 96374; 96375; 99285; J0131; J2405; Q9967

== ENCOUNTER 2023-08-09 16:59 | Emergency (ER) | payer SELFPAY ==
[2023-08-09 17:00] VITALS: BP 154/85; PULSE 98; RESP 25; TEMP 36.5; O2SAT 99; BMI 29.9
[2023-08-09 17:19] VITALS: BMI 29.9
[2023-08-09] MEDS: ONDANSETRON 4MG/2ML VIAL 4 MG IV (17:21)
[2023-08-09] MEDS: LACTATED RINGERS 1000ML 1,000 ML 999 ML IV (17:21)
--- NOTE | 2023-08-09 17:21 | CT_ITS ---
PROCEDURE INFORMATION: Exam: CT Abdomen And Pelvis Without Contrast Exam date and time: 08/09/2023 5:30 PM Age: 22 years old Clinical indication: Abdominal pain; Flank; Left; Additional info: L flank pain, h/o stones TECHNIQUE: Imaging protocol: Computed tomography of the abdomen and pelvis without contrast. Radiation optimization: All CT scans at this facility use at least one of these dose optimization techniques: automated exposure control; mA and/or kV adjustment per patient size (includes targeted exams where dose is matched to clinical indication); or iterative reconstruction. COMPARISON: CT ABDOMEN PELVIS W CON 03/13/2023 8:18 AM FINDINGS: Liver: There is a diffuse decrease in hepatic parenchymal density consistent with fatty infiltration. Gallbladder and bile ducts: Normal. No calcified stones. No ductal dilation. Pancreas: Normal. No ductal dilation. Spleen: Normal. No splenomegaly. Adrenal glands: Normal. No mass. Kidneys and ureters: Mildly dilated left renal collecting system and proximal left ureter. Very faint punctate obstructing stone seen in the left ureter on image 58, series 3. Multiple left-sided renal stones measuring up to 3 mm in diameter. Stomach and bowel: Unremarkable. No obstruction. No mucosal thickening. Appendix: No evidence of appendicitis. Intraperitoneal space: Unremarkable. No free air. No significant fluid collection. Vasculature: Unremarkable. No abdominal aortic aneurysm. Lymph nodes: Unremarkable. No enlarged lymph nodes. Urinary bladder: Unremarkable as visualized. Reproductive: Unremarkable as visualized. Bones/joints: Unremarkable. No acute fracture. Soft tissues: Unremarkable. IMPRESSION: 1. Punctate obstructing stone in the proximal left ureter. 2. Left-sided nephrolithiasis. 3. Fatty liver.
[2023-08-09 17:25] LABS: Microscopic, Urine URINE MICROSCOPIC (MICROSCOPIC)
[2023-08-09 17:27] LABS: Appearance,Urine CLEAR (Clear); Bilirubin,Urine Negative (Negative); Blood, Urine Negative (Negative); Color,Urine YELLOW (Yellow); Glucose,Urine (UA) Negative (Negative); Ketones,Urine Negative (Negative); Leukocyte Esterase,Urine Negative (Negative); Nitrate,Urine Negative (Negative); Protein,Urine Negative (Negative); Urobilinogen,Urine 0.2 EU/dl (0.2)
[2023-08-09] MEDS: MORPHINE 4MG/ML SYRINGE 4 MG IV (17:28)
[2023-08-09] MEDS: KETOROLAC 30MG/ML VIAL 15 MG IV ×2 (17:28→19:24)
--- NOTE | 2023-08-09 17:29 | PC.NURSE ---
pt to ct scan via wheelchair
[2023-08-09 17:30] LABS: Chloride 103 mmol/L (98-107)
[2023-08-09 17:31] LABS: Potassium 4.2 mmoL/L (3.5-5.1); Sodium 142 mmol/L (136-145)
[2023-08-09 17:33] LABS: Blood Urea Nitrogen 14 mg/dl (9-20); Creatinine Clearance Estimated 134 mL/min (50-200); Estimated Glomerular Filt Rate 93 ml/min (>60); GFR (African American) 113 ML/MIN (>60)
--- NOTE | 2023-08-09 17:33 | PC.NURSE ---
pt back to chair #[address] scan
[2023-08-09 17:34] LABS: Alanine Aminotransferase 56 U/L (12-78); Albumin Level 4.7 g/dl (3.5-5.0); Albumin/Globulin Ratio 1.5 (1.1-1.8); Alkaline Phosphatase 71 U/L (38-126); Anion Gap 12.2 mEq/L (5-15); Aspartate Amino Transferase 46 U/L (17-59); Basophils # 0.2 K/mm3 (0-0.2); Basophils % 1.8 % (0.1-2.0); Bilirubin,Total 0.5 mg/dl (0.2-1.3); Calcium 9.9 mg/dl (8.4-10.2); Carbon Dioxide 31 mmol/L (22.0-30.0); Eosinophils # 0.2 K/mm3 (0.0-0.4); Eosinophils % 2.2 % (0.1-12.0); Globulin 3.1 g/dL (1.3-3.2); Glucose 101 mg/dl (74-100); Hematocrit 51.1 % (42.0-52.0); Hemoglobin 16.2 g/dL (14.1-18.0); Lymphocytes % 32.9 % (10-50); Mean Corpuscular HGB Conc 31.7 g/dL (31.8-35.4); Mean Corpuscular Hemoglobin 27.9 pg (27.0-31.2); Mean Corpuscular Volume 88.1 fl (80-94); Mean Platelet Volume 8.2 fl (7.4-10.4); Monocytes # 0.9 K/mm3 (0.1-1.0); Monocytes % 9.5 % (1.7-9.3); Neutrophils # 4.9 K/mm3 (1.8-7.8); Neutrophils % 53.6 % (37.0-80.0); Platelet Count 287 K/mm3 (142-424); Red Blood Count 5.79 M/mm3 (4.60-6.20); Red Cell Distribution Width 13.3 % (11.5-17.5); Total Protein,Serum 7.8 g/dl (6.3-8.2); White Blood Count 9.2 K/mm3 (4.8-10.8)
[2023-08-09 17:45] LABS: Lipase 31 U/L (23-300)
--- NOTE | 2023-08-09 17:48 | HMH.EDGENADL ---
Discharge Plan Disposition Patient Disposition: Home, Self-Care Condition: Good Prescriptions Prescriptions: New oxycodone 5 mg tablet 5 mg PO Q8H PRN (Reason: pain) Qty: 10 0RF tamsulosin [Flomax] 0.4 mg capsule 0.4 mg PO HS Qty: 7 0RF ketorolac 10 mg tablet 10 mg PO Q8H PRN (Reason: pain) 1 Days Qty: 14 0RF ondansetron HCl 4 mg tablet 4 mg PO Q8H PRN (Reason: nausea and vomiting) 4 Days Qty: 12 0RF No Action hydrocodone-acetaminophen 5-325 mg tablet 1 tab PO Q6H PRN (Reason: pain) Qty: 10 0RF tiopronin 300 MG tablet,delayed release (DR/EC) 300 mg PO BID tamsulosin [Flomax] 0.4 mg capsule 0.4 mg PO DAILY ketorolac 10 mg tablet 10 mg PO Q8H PRN (Reason: pain) Qty: 20 0RF tamsulosin [Flomax] 0.4 mg capsule 0.4 mg PO DAILY Qty: 7 0RF tamsulosin [Flomax] 0.4 mg capsule 0.4 mg PO DAILY Qty: 14 0RF ondansetron 4 mg tablet,disintegrating 4 mg PO Q8H 5 Days Qty: 15 0RF oxycodone 5 mg tablet 5 mg PO Q6H PRN (Reason: severe pain (scale score 7-10)) Qty: 12 0RF tamsulosin [Flomax] 0.4 mg capsule 0.4 mg PO DAILY Qty: 14 0RF ondansetron 4 mg tablet,disintegrating 4 mg PO Q8H 4 Days Qty: 12 0RF ondansetron 4 mg tablet,disintegrating 4 mg PO Q8H PRN (Reason: nausea and vomiting) 4 Days Qty: 9 0RF tamsulosin 0.4 mg capsule 0.4 mg PO DAILY Qty: 10 0RF Rx Instructions: Do not combine with other tamsulosin oxycodone 5 mg tablet 5 mg PO Q8H PRN (Reason: pain) Qty: 9 0RF Rx Instructions: Do not combine with other opiates. Please take Tylenol and ibuprofen first. Do not take your first dose until 4 PM today. Referrals Follow up/Referrals: Rc Pope MD [Staff Physician] - See instructions Arun Scott MD [Primary Care Provider] - See instructions Activity Restrictions/Add. Instructions Additional Instructions/Restrictions: You were evaluated in the emergency department today and diagnosed with a kidney stone. Please filler picker your prescriptions and take them as prescribed. Do not drive or operate heavy machinery while taking narcotic pain medication. You may also take Tylenol in addition to these medications. Hydrate. Follow-up outpatient with urology as well as your primary care provider. Return to the emergency department for new or worsening symptoms, such as fevers, significant worsening in pain, or other concerns. Clinical Impressions Clinical Impression: Calculus of left ureter Stand Alone Forms Stand Alone Forms: Work/School Release Instructions Patient Instructions: DI for Kidney Stones, DI for Acute Pain -- Adult Discharge ED Provider: Consuelo Saravia General Adult HPI General Chief complaint: PAIN Stated complaint: possible kidney stone Time Seen by Provider: 08/09/23 17:11 Mode of Arrival: Family Vehicle Source of Information: Patient and Medical Record Limitations: No Limitations Description of Symptoms (Recalled from ER Triage Doc. by RN): Pt c/o left flank pain with nausea. States he has a hx of kidney stones and believes he is trying to pass another one. History of Present Illness HPI narrative: This patient is a 22-year-old male with history of kidney stones presenting to the emergency department for evaluation with concern for acute onset left flank pain that started approximately 30 minutes prior to arrival. He states it feels the same as prior kidney stones. No other concerns noted, and he was well prior to this. No recent falls or traumatic injuries. No fevers, chills, nausea, vomiting, or other issues. Related Data Home Medications Medication Instructions Recorded Confirmed tiopronin 300 mg tablet,delayed 300 mg PO BID Kidney stones 10/14/21 02/21/22 release tamsulosin 0.4 mg capsule (Flomax) 0.4 mg PO DAILY Kidney stones 02/21/22 02/21/22 Previous Rx's Medication Instructions Recorded ketorolac 10 mg tablet 10 mg PO Q8H PRN pain #20 tabs 02/21/22 tamsulosin 0.4 mg capsule (Flomax) 0.4 mg PO DAILY #7 caps 02/21/22 hydrocodone 5 mg-acetaminophen 325 1 tab PO Q6H PRN pain #10 tabs 06/09/22 mg tablet ondansetron 4 mg disintegrating 4 mg PO Q8H 5 days #15 tabs 06/09/22 tablet tamsulosin 0.4 mg capsule (Flomax) 0.4 mg PO DAILY #14 caps 06/09/22 ondansetron 4 mg disintegrating 4 mg PO Q8H 4 days #12 tabs 12/17/22 tablet oxycodone 5 mg tablet 5 mg PO Q6H PRN severe pain (scale 12/17/22 score 7-10) #12 tabs tamsulosin 0.4 mg capsule (Flomax) 0.4 mg PO DAILY #14 caps 12/17/22 ondansetron 4 mg disintegrating 4 mg PO Q8H PRN nausea and 03/13/23 tablet vomiting 4 days #9 tabs oxycodone 5 mg tablet 5 mg PO Q8H PRN pain #9 tabs 03/13/23 tamsulosin 0.4 mg capsule 0.4 mg PO DAILY #10 caps 03/13/23 ketorolac 10 mg tablet 10 mg PO Q8H PRN pain 1 day #14 08/09/23 tabs ondansetron HCl 4 mg tablet 4 mg PO Q8H PRN nausea and 08/09/23 vomiting 4 days #12 tabs oxycodone 5 mg tablet 5 mg PO Q8H PRN pain #10 tabs 08/09/23 tamsulosin 0.4 mg capsule (Flomax) 0.4 mg PO HS #7 caps 08/09/23 Allergies Allergy/AdvReac Type Severity Reaction Status Date / Time No Known Allergies Allergy Verified 02/21/22 17:57 [facility] Disclaimer: The information contained in this section may have been updated after the patient was seen, as this information can be updated by other users. 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 current occupational exposures/hazards: No caffeine: No ROS Obtained: Yes All systems reviewed & no additional complaints except as documented Physical Exam General General appearance: alert Comment: Uncomfortable appearing, rocking back and forth and writhing around in pain Head Head exam: atraumatic and normocephalic Eye Eye exam: Present normal appearance, PERRL and EOMI ENT ENT exam: Present normal exam, normal oropharynx, mucous membranes moist and normal external ear exam Neck Neck exam: Present normal inspection, full ROM and trachea midline; Absent tenderness Chest Chest inspection: Present normal inspection and symmetric chest wall rise; Absent tenderness Respiratory Respiratory exam: Present normal lung sounds bilaterally; Absent respiratory distress, wheezes, stridor or accessory muscle use Cardiovascular Cardiovascular exam: Present regular rate and normal rhythm Abdominal Exam Abdominal exam: Present soft; Absent distention, tenderness or guarding Extremities Exam Extremities exam: Present normal inspection, full ROM and normal capillary refill; Absent tenderness or edema Back Exam Back exam: Present full ROM and CVA tenderness (L); Absent tenderness or vertebral tenderness Neurological Exam Neurological exam: Present alert, oriented X3, CN II-XII intact and normal gait; Absent motor sensory deficit Psychiatric Psychiatric exam: Present anxious Skin Skin exam: Present warm and dry Medical Decision Making Medical Records Medical records reviewed: Yes I reviewed the patient's medical records. [place] Inquiry Pt receiving controlled substance: Yes [place] was queried for this patient: Yes Risks and benefits of using a controlled substance: were discussed with pt by me Vital Signs: 08/09/23 17:00 08/09/23 19:10 08/09/23 19:38 Temperature 97.7 F 98.6 F Temperature Source Oral Oral Pulse Rate 84 72 Pulse Rate [Right] 98 H Respiratory Rate 25 H 18 16 Blood Pressure 152/85 H 124/72 Blood Pressure [Right Arm] 154/85 H Blood Pressure Mean [Right Arm] 108 Blood Pressure Source [Right Arm] Automatic Cuff 02 Sat by Pulse Oximetry 99 99 Oxygen Delivery Method Room Air Room Air Room Air Lab Data Lab results reviewed: Yes I reviewed the patient's lab results. Lab Results 08/09/23 17:07: Urine Color Yellow, Urine Appearance Clear, Urine pH 7.0, Ur Specific [place] 1.020, Urine Protein Negative, Urine Glucose (UA) Negative, Urine Ketones Negative, Urine Blood Negative, Urine Nitrate Negative, Urine Bilirubin Negative, Urine Urobilinogen 0.2, Ur Leukocyte Esterase Negative, Urine RBC None, Urine WBC None, Ur Squamous Epith Cells None, Amorphous Sediment Trace, Urine Bacteria None 08/09/23 17:15: WBC 9.2, RBC 5.79, Hgb 16.2, Hct 51.1, MCV 88.1, MCH 27.9, MCHC 31.7 L, RDW 13.3, Plt Count 287, MPV 8.2, Neut % (Auto) 53.6, Lymph % (Auto) 32.9, [place] % (Auto) 9.5 H, Eos % (Auto) 2.2, Baso % (Auto) 1.8, Neut # (Auto) 4.9, Lymph # (Auto) 3.0, [place] # (Auto) 0.9, Eos # (Auto) 0.2, Baso # (Auto) 0.2, Sodium 142, Potassium 4.2, Chloride 103, Carbon Dioxide 31 H, Anion Gap 12.2, BUN 14, Creatinine 1.00, Estimated Creat Clear 134, Estimated GFR 93, Est GFR ( Amer) 113, Glucose 101 H, Calcium 9.9, Total Bilirubin 0.5, AST 46, ALT 56, Alkaline Phosphatase 71, Total Protein 7.8, Albumin 4.7, Globulin 3.1, Albumin/Globulin Ratio 1.5, Lipase 31 08/09/23 17:15 08/09/23 17:15 Orders (Tests/Meds): ED MEDICATIONS Discontinued Medications Generic Name Dose Route Start Last Admin Trade Name Neo PRN Reason Stop Dose Admin Acetaminophen 1,000 mg 08/09/23 18:52 08/09/23 18:56 Acetaminophen 500mg Tab PO 08/09/23 18:53 1,000 mg ONCE ONE Administration Lactated Ringer's 1,000 mls @ 999 mls/hr 08/09/23 17:20 08/09/23 17:21 Lactated Ringer's 1000 Ml Bag IV 08/09/23 18:20 999 mls/hr .Q1H1M ONE Administration Ketorolac Tromethamine 15 mg 08/09/23 17:20 08/09/23 17:28 Ketorolac 30mg/Ml Vial IV 08/09/23 17:21 15 mg ONCE ONE Administration Ketorolac Tromethamine 15 mg 08/09/23 19:06 08/09/23 19:24 Ketorolac 30mg/Ml Vial IV 08/09/23 19:07 15 mg ONCE ONE Administration Morphine Sulfate 4 mg 08/09/23 17:20 08/09/23 17:28 Morphine 4mg/Ml Syringe IV 08/09/23 17:21 4 mg ONCE ONE Administration Ondansetron HCl 4 mg 08/09/23 17:20 08/09/23 17:21 Ondansetron 4mg/2ml Vial IV 08/09/23 17:21 4 mg ONCE ONE Administration Oxycodone HCl 5 mg 08/09/23 18:52 08/09/23 18:55 Oxycodone 5mg Immediate Release Tablet PO 08/09/23 18:53 5 mg ONCE ONE Administration ORDERS Category Date Time Status CT abdomen pelvis wo con Stat Cat Scan 08/09/23 17:21 Completed Complete Blood Count Auto Diff Stat Lab 08/09/23 17:15 Completed Comprehensive Metabolic Panel Stat Lab 08/09/23 17:15 Completed Lipase Stat Lab 08/09/23 17:15 Completed Urinalysis and Microscopic Stat Lab 08/09/23 17:07 Completed Medical Decision Narrative: In summary, this patient is a 22-year-old male presenting to the Emergency Department for evaluation of acute onset left flank pain. Differential diagnoses considered include but are not limited to urolithiasis, pyelonephritis, colitis, musculoskeletal strain/sprain. Ruling out the most morbid conditions drove assessment. On exam, the patient is uncomfortable appearing, rocking back and forth and writhing around in pain. Workup included CBC, CMP, urinalysis, and CT abdomen pelvis without IV contrast. He was given a bolus of IV fluids as well as IV Zofran, Toradol, and morphine for symptomatic improvement. I independently interpreted CT scan prior to the radiologist read and noted tiny left ureteral stone without significant hydronephrosis. Please see their read for final interpretation. Labs were obtained that demonstrated no acute concerning abnormalities. Urinalysis is not concerning for infection, and kidney function is normal. No significant leukocytosis. On reassessment, patient had some improvement after administration of medications above, but he is still uncomfortable. Given this, he was given a second bolus of IV Toradol as well as oral oxycodone. This did control his symptoms. At this time, patient was deemed to be appropriate for discharge home with prescriptions for Flomax, Toradol, oxycodone, and Zofran for symptomatic management of punctate ureteral stone. I considered urological consultation, however the stone is likely to pass on its own given its size. Strict return precautions were given, and the patient was discharged after all questions were answered. Critical Care Critical Care Time Critical Care Time: No
[2023-08-09 18:12] LABS: Amorphous Sediment,Urine Trace /lpf
--- NOTE | 2023-08-09 18:38 | PC.NURSE ---
updated pt's father on pt's POC.
[2023-08-09] MEDS: OXYCODONE 5MG IMMEDIATE RELEASE TABLET 5 MG PO (18:55)
[2023-08-09] MEDS: ACETAMINOPHEN 500MG TAB 1000 MG PO (18:56)
[2023-08-09 19:10] VITALS: BP 152/85; PULSE 84; RESP 18; O2SAT 99
--- NOTE | 2023-08-09 19:11 | PC.NURSE ---
went to dc pt, he is rocking back and forth in pain, aware, new med ordered, waiting to see if the pain meds help before DC
--- NOTE | 2023-08-09 19:15 | PC.NURSE ---
ER registration called father asking for update on patient, nurses are in report and will speak to him shortly
[2023-08-09 19:38] VITALS: BP 124/72; PULSE 72; RESP 16; TEMP 37; O2SAT 98
== END 2023-08-09 19:40 | disposition home or self-care (01) ==
PROVIDERS: Emergency Provider Emergency Medicine; PCP Family Medicine
DX: N20.1 Calculus of ureter (principal); R10.32 Left lower quadrant pain; Z87.442 Personal history of urinary calculi
CPT/HCPCS: 74176; 80053; 81001; 83690; 85025; 96361; 96374; 96375; 96376; 99285; J2405

== ENCOUNTER 2023-08-22 16:04 | Emergency (ER) | payer SELFPAY ==
[2023-08-22] VITALS (9 sets, daily range): BP systolic 136–145; BP diastolic 62–89; PULSE 89–113; RESP 15–16; TEMP 36.8–37.1; O2SAT 91–99; BMI 30.9
--- NOTE | 2023-08-22 16:44 | ED_ITS ---
<Statement entered by Norah Carlin MD - 08/22/23 22:03> I was consulted by the RENEE, and we discussed the complexity of the problems being addressed. I approved the treatment and management plan for this patient's care in the emergency department, thus performing a substantive portion of the medical decision making. Norah Carlin MD, MICHAEL, FACEP Discharge Plan Disposition Patient Disposition: Xfer Other Condition: Fair Prescriptions Prescriptions: New tamsulosin 0.4 mg capsule 0.4 mg PO DAILY Qty: 10 0RF ketorolac 10 mg tablet 10 mg PO Q6H PRN (Reason: pain) Qty: 10 0RF Rx Instructions: maximum total duration of 5 days from all oral, intranasal, or parenteral formulations hydrocodone-acetaminophen 5-325 mg tablet 1 tab PO Q6H PRN (Reason: pain) 3 Days Qty: 12 0RF ondansetron 4 mg tablet,disintegrating 4 mg PO Q6H PRN (Reason: nausea and vomiting) 5 Days Qty: 20 0RF No Action hydrocodone-acetaminophen 5-325 mg tablet 1 tab PO Q6H PRN (Reason: pain) Qty: 10 0RF oxycodone 5 mg tablet 5 mg PO Q8H PRN (Reason: pain) Qty: 10 0RF tamsulosin [Flomax] 0.4 mg capsule 0.4 mg PO HS Qty: 7 0RF ketorolac 10 mg tablet 10 mg PO Q8H PRN (Reason: pain) 1 Days Qty: 14 0RF ondansetron HCl 4 mg tablet 4 mg PO Q8H PRN (Reason: nausea and vomiting) 4 Days Qty: 12 0RF tiopronin 300 MG tablet,delayed release (DR/EC) 300 mg PO BID tamsulosin [Flomax] 0.4 mg capsule 0.4 mg PO DAILY ketorolac 10 mg tablet 10 mg PO Q8H PRN (Reason: pain) Qty: 20 0RF tamsulosin [Flomax] 0.4 mg capsule 0.4 mg PO DAILY Qty: 7 0RF tamsulosin [Flomax] 0.4 mg capsule 0.4 mg PO DAILY Qty: 14 0RF ondansetron 4 mg tablet,disintegrating 4 mg PO Q8H 5 Days Qty: 15 0RF oxycodone 5 mg tablet 5 mg PO Q6H PRN (Reason: severe pain (scale score 7-10)) Qty: 12 0RF tamsulosin [Flomax] 0.4 mg capsule 0.4 mg PO DAILY Qty: 14 0RF ondansetron 4 mg tablet,disintegrating 4 mg PO Q8H 4 Days Qty: 12 0RF ondansetron 4 mg tablet,disintegrating 4 mg PO Q8H PRN (Reason: nausea and vomiting) 4 Days Qty: 9 0RF tamsulosin 0.4 mg capsule 0.4 mg PO DAILY Qty: 10 0RF Rx Instructions: Do not combine with other tamsulosin oxycodone 5 mg tablet 5 mg PO Q8H PRN (Reason: pain) Qty: 9 0RF Rx Instructions: Do not combine with other opiates. Please take Tylenol and ibuprofen first. Do not take your first dose until 4 PM today. Referrals Follow up/Referrals: Arun Scott MD [Primary Care Provider] - See instructions Activity Restrictions/Add. Instructions Additional Instructions/Restrictions: Prescriptions have been called into your pharmacy. Please follow-up with urology by calling to make an appointment in the a.m. If you have increasing pain or any other constitutional symptoms please return to your healthcare provider or return to ER Clinical Impressions Clinical Impression: Hydroureteronephrosis, Ureterolithiasis Stand Alone Forms Stand Alone Forms: Transfer Record - ED Instructions Patient Instructions: DI for Acute Abdominal Pain Discharge ED Provider: Norah Carlin General Adult HPI General Chief complaint: Abdominal Pain Stated complaint: vomiting back pain Time Seen by Provider: 08/22/23 16:43 History of Present Illness HPI narrative: Patient presents for left flank pain. Patient has a longstanding history of multiple episodes of kidney stones. Some he is unable to pass others she has required extraction. Patient was seen on 08/09/2023 in our ER and noted to have a left collecting system stone however he was able to be discharged home. Patient did not require follow-up with urology however he presents today with acute onset of renal colic located in left flank along with associated nausea and vomiting. Patient rates his pain as a 10 out of 10. He states the pain radiates from his left flank towards his groin. He denies chest pain shortness of breath fever chills hemoptysis hematochezia melena hematemesis. Related Data Home Medications Medication Instructions Recorded Confirmed tiopronin 300 mg tablet,delayed 300 mg PO BID Kidney stones 10/14/21 02/21/22 release tamsulosin 0.4 mg capsule (Flomax) 0.4 mg PO DAILY Kidney stones 02/21/22 02/21/22 Previous Rx's Medication Instructions Recorded ketorolac 10 mg tablet 10 mg PO Q8H PRN pain #20 tabs 02/21/22 tamsulosin 0.4 mg capsule (Flomax) 0.4 mg PO DAILY #7 caps 02/21/22 hydrocodone 5 mg-acetaminophen 325 1 tab PO Q6H PRN pain #10 tabs 06/09/22 mg tablet ondansetron 4 mg disintegrating 4 mg PO Q8H 5 days #15 tabs 06/09/22 tablet tamsulosin 0.4 mg capsule (Flomax) 0.4 mg PO DAILY #14 caps 06/09/22 ondansetron 4 mg disintegrating 4 mg PO Q8H 4 days #12 tabs 12/17/22 tablet oxycodone 5 mg tablet 5 mg PO Q6H PRN severe pain (scale 12/17/22 score 7-10) #12 tabs tamsulosin 0.4 mg capsule (Flomax) 0.4 mg PO DAILY #14 caps 12/17/22 ondansetron 4 mg disintegrating 4 mg PO Q8H PRN nausea and 03/13/23 tablet vomiting 4 days #9 tabs oxycodone 5 mg tablet 5 mg PO Q8H PRN pain #9 tabs 03/13/23 tamsulosin 0.4 mg capsule 0.4 mg PO DAILY #10 caps 03/13/23 ketorolac 10 mg tablet 10 mg PO Q8H PRN pain 1 day #14 08/09/23 tabs ondansetron HCl 4 mg tablet 4 mg PO Q8H PRN nausea and 08/09/23 vomiting 4 days #12 tabs oxycodone 5 mg tablet 5 mg PO Q8H PRN pain #10 tabs 08/09/23 tamsulosin 0.4 mg capsule (Flomax) 0.4 mg PO HS #7 caps 08/09/23 hydrocodone 5 mg-acetaminophen 325 1 tab PO Q6H PRN pain 3 days #12 08/22/23 mg tablet tabs ketorolac 10 mg tablet 10 mg PO Q6H PRN pain #10 tabs 08/22/23 ondansetron 4 mg disintegrating 4 mg PO Q6H PRN nausea and 08/22/23 tablet vomiting 5 days #20 tabs tamsulosin 0.4 mg capsule 0.4 mg PO DAILY #10 caps 08/22/23 Allergies Allergy/AdvReac Type Severity Reaction Status Date / Time No Known Allergies Allergy Verified 02/21/22 17:57 [facility] Disclaimer: The information contained in this section may have been updated after the patient was seen, as this information can be updated by other users. 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 Patient has positive left CVA tenderness to percussion) and normal bowel sounds; Absent guarding or rebound Extremities Exam Extremities exam: Present normal inspection and full ROM Back Exam Back exam: Present normal inspection, full ROM and CVA tenderness (L) Neurological Exam Neurological exam: Present alert and oriented X3 Psychiatric Psychiatric exam: Present normal affect and normal mood Medical Decision Making Medical Records Medical records reviewed: Yes I reviewed the patient's medical records. Maynor Inquiry Pt receiving controlled substance: No Vital Signs: 08/22/23 16:05 08/22/23 18:38 08/22/23 19:00 Temperature 98.8 F Temperature Source Oral Pulse Rate 94 H 106 H Pulse Rate [Left Radial] 89 Respiratory Rate 15 Blood Pressure 138/65 136/78 Blood Pressure [Right Arm] 143/89 H Blood Pressure Mean 94 Blood Pressure Mean [Right Arm] 107 02 Sat by Pulse Oximetry 98 91 L 98 Oxygen Delivery Method Room Air 08/22/23 19:31 08/22/23 19:59 08/22/23 20:30 Temperature Temperature Source Pulse Rate 103 H 101 H 94 H Pulse Rate [Left Radial] Respiratory Rate Blood Pressure 140/75 137/62 142/79 H Blood Pressure [Right Arm] Blood Pressure Mean Blood Pressure Mean [Right Arm] 02 Sat by Pulse Oximetry 99 98 94 L Oxygen Delivery Method 08/22/23 21:00 08/22/23 21:26 Temperature Temperature Source Pulse Rate 98 H 113 H Pulse Rate [Left Radial] Respiratory Rate Blood Pressure 140/78 145/79 H Blood Pressure [Right Arm] Blood Pressure Mean Blood Pressure Mean [Right Arm] 02 Sat by Pulse Oximetry 96 97 Oxygen Delivery Method Lab Data Lab results reviewed: Yes I reviewed the patient's lab results. Lab Results 08/22/23 16:39: WBC 9.4, RBC 5.66, Hgb 15.9, Hct 49.6, MCV 87.5, MCH 28.1, MCHC 32.1, RDW 13.4, Plt Count 324, MPV 8.4, Neut % (Auto) 63.5, Lymph % (Auto) 27.5, [place] % (Auto) 6.4, Eos % (Auto) 1.4, Baso % (Auto) 1.2, Neut # (Auto) 6.0, Lymph # (Auto) 2.6, [place]son # (Auto) 0.6, Eos # (Auto) 0.1, Baso # (Auto) 0.1, Sodium 144, Potassium 4.4, Chloride 108 H, Carbon Dioxide 26, Anion Gap 14.4, BUN 15, Creatinine 1.10, Estimated Creat Clear 122, Estimated GFR 84, Est GFR ( Amer) 101, Glucose 114 H, Calcium 10.1 08/22/23 17:46: Urine Color Yellow, Urine Appearance Clear, Urine pH 7.5, Ur Specific [place] 1.025, Urine Protein 2+, Urine Glucose (UA) Negative, Urine Ketones Negative, Urine Blood 2+, Urine Nitrate Negative, Urine Bilirubin Negative, Urine Urobilinogen 0.2, Ur Leukocyte Esterase Negative, Urine RBC 20- 50, Urine WBC Occasional, Ur Squamous Epith Cells Occasional, Cystine Crystals 3+, Urine Bacteria Trace 08/22/23 16:39 08/22/23 16:39 Orders (Tests/Meds): ED MEDICATIONS Discontinued Medications Generic Name Dose Route Start Last Admin Trade Name Freq PRN Reason Stop Dose Admin Acetaminophen 1,000 mg 08/22/23 16:44 08/22/23 17:13 Acetaminophen 1,000mg/100ml Vial IV 08/22/23 16:45 1,000 mg ONCE ONE Administration Hydromorphone HCl 1 mg 08/22/23 17:03 08/22/23 17:15 Hydromorphone 2mg/Ml Syringe IV 08/22/23 17:04 1 mg ONCE ONE Administration Hydromorphone HCl 0.5 mg 08/22/23 19:31 08/22/23 19:36 Hydromorphone 2mg/Ml Syringe IV 08/22/23 19:32 0.5 mg ONCE ONE Administration Lactated Ringer's 1,000 mls @ 999 mls/hr 08/22/23 16:44 08/22/23 17:14 Lactated Ringer's 1000 Ml Bag IV 08/22/23 17:44 999 mls/hr .Q1H1M ONE Administration Ketorolac Tromethamine 15 mg 08/22/23 16:44 08/22/23 17:14 Ketorolac 30mg/Ml Vial IV 08/22/23 16:45 15 mg ONCE ONE Administration Ondansetron HCl 4 mg 08/22/23 19:02 08/22/23 19:36 Ondansetron 4mg/2ml Vial IV 08/22/23 19:03 4 mg ONCE ONE Administration Promethazine HCl 25 mg 08/22/23 21:27 08/22/23 21:31 Promethazine Hcl 25mg/Ml 1ml Vial IV 08/22/23 21:28 25 mg ONCE ONE Administration Sodium Chloride 25 ml 08/22/23 21:27 08/22/23 21:31 Sodium Chloride 0.9% 25ml Bag IV 08/22/23 21:28 25 ml ONCE ONE Administration ORDERS Category Date Time Status CT abdomen pelvis wo con Stat Cat Scan 08/22/23 16:50 Completed BMP [Basic Metabolic Panel] Stat Lab 08/22/23 16:39 Completed CBC w/Auto Diff [Complete Blood Count Auto Diff] Stat Lab 08/22/23 16:39 Completed UA [Urinalysis and Microscopic] Stat Lab 08/22/23 17:46 Completed Medical Decision Narrative: In summary patient is a 2-year-old male who presents to the emergency department for evaluation of left flank pain. Patient has a history of cystinuria and was previously on a very expensive medication however he has since lost his insurance thus he has lost his ability to take the medication as pharmacy [place] Patient is hemodynamically stable upon arrival, afebrile. Physical exam is remarkable for left flank pain in the CVA area with CVA tenderness to percussion is not reproducible on palpation. Patient is tender to palpation in the left mid abdomen. Differential diagnosis includes kidney stone with or without obstruction versus complicated urinary tract infection versus gastrointestinal cause etc. Initial workup will be conducted with hematologic labs, urinalysis, CT scan of the abdomen stone protocol. Initial interventions include Toradol Tylenol and milligram of Dilaudid. Initial workup reviewed by me shows a normal white count borderline but normal creatinine and urinalysis is 2+ positive for blood. Patient has a 4 mm obstructing proximal ureteral stone along with other nonobstructing stones seen in the left renal collecting system. Upon repeat evaluation patient has improvement in his pain currently. Due to the fact that the patient lost insurance he preferred to try to attempt to go home. Prior to completing discharge however, patient return refractory pain and nausea requiring multiple doses of opiates. Thus discussion was made with the patient via shared decision making about attempting to go home versus transfer. Patient ultimately elected to be transferred. We contacted [facility] transfer center at 2014 and they declined due to lack of urology coverage. We were finally able to get the patient accepted at the [facility] at 2148. Patient will be sent to [facility] in the care of Dr. Resendiz Critical Care Critical Care Time Critical Care Time: No
--- NOTE | 2023-08-22 16:50 | CT_ITS ---
PROCEDURE INFORMATION: Exam: CT Abdomen And Pelvis Without Contrast Exam date and time: 08/22/2023 5:26 PM Age: 22 years old Clinical indication: Abdominal pain; Flank; Left; Additional info: Acute abd pain TECHNIQUE: Imaging protocol: Computed tomography of the abdomen and pelvis without contrast. Radiation optimization: All CT scans at this facility use at least one of these dose optimization techniques: automated exposure control; mA and/or kV adjustment per patient size (includes targeted exams where dose is matched to clinical indication); or iterative reconstruction. COMPARISON: CT ABDOMEN PELVIS WO CON 08/09/2023 5:30 PM FINDINGS: Lungs: The visualized lung bases demonstrate no focal infiltrates. Liver: Moderate diffuse hepatic steatosis is identified. Gallbladder and bile ducts: The gallbladder is normal. There is no evidence of biliary ductal dilation. Pancreas: The pancreas is normal. Spleen: The spleen is normal. Adrenal glands: The adrenal glands appear within normal limits. Kidneys and ureters: Moderate left renal obstructive hydronephrosis. This is due to a stone within the proximal left ureter measuring 4 mm. This ureteral stone is new from the prior CT. 1 mm intra calyceal stone within the left kidney upper pole 1 mm stone within the left kidney lower pole. Right kidney is normal. Stomach and bowel: The stomach appears within normal limits. No wall thickening or inflammatory change. Appendix: No evidence of appendicitis. Intraperitoneal space: No free air. No evidence for focal fluid collection or ascites. No evidence for omental thickening. Vasculature: Unremarkable. No abdominal aortic aneurysm. Lymph nodes: Unremarkable. No pathologically enlarged lymph nodes are identified. Urinary bladder: The bladder appears within normal limits. No wall thickening. Reproductive: The prostate gland appears normal. Bones/joints: Unremarkable. No acute fracture. Soft tissues: Unremarkable. IMPRESSION: 1. Moderate left renal obstructive hydronephrosis. This is due to a stone within the proximal left ureter measuring 4 mm. This ureteral stone is new from the prior CT. 1 mm intra calyceal stone within the left kidney upper pole 1 mm stone within the left kidney lower pole. 2. Moderate hepatic steatosis.
--- NOTE | 2023-08-22 17:05 | PC.NURSE ---
Rounded on pt to see if they had any needs pt had no needs at this time
[2023-08-22 17:10] LABS: Anion Gap 14.4 mEq/L (5-15); Basophils # 0.1 K/mm3 (0-0.2); Basophils % 1.2 % (0.1-2.0); Blood Urea Nitrogen 15 mg/dl (9-20); Calcium 10.1 mg/dl (8.4-10.2); Carbon Dioxide 26 mmol/L (22.0-30.0); Chloride 108 mmol/L (98-107); Creatinine Clearance Estimated 122 mL/min (50-200); Eosinophils # 0.1 K/mm3 (0.0-0.4); Eosinophils % 1.4 % (0.1-12.0); Estimated Glomerular Filt Rate 84 ml/min (>60); GFR (African American) 101 ML/MIN (>60); Glucose 114 mg/dl (74-100); Hematocrit 49.6 % (42.0-52.0); Hemoglobin 15.9 g/dL (14.1-18.0); Lymphocytes # 2.6 K/mm3 (0.7-4.5); Lymphocytes % 27.5 % (10-50); Mean Corpuscular HGB Conc 32.1 g/dL (31.8-35.4); Mean Corpuscular Hemoglobin 28.1 pg (27.0-31.2); Mean Corpuscular Volume 87.5 fl (80-94); Mean Platelet Volume 8.4 fl (7.4-10.4); Monocytes # 0.6 K/mm3 (0.1-1.0); Monocytes % 6.4 % (1.7-9.3); Neutrophils % 63.5 % (37.0-80.0); Platelet Count 324 K/mm3 (142-424); Potassium 4.4 mmoL/L (3.5-5.1); Red Blood Count 5.66 M/mm3 (4.60-6.20); Red Cell Distribution Width 13.4 % (11.5-17.5); Sodium 144 mmol/L (136-145); White Blood Count 9.4 K/mm3 (4.8-10.8)
[2023-08-22] MEDS: ACETAMINOPHEN 1,000MG/100ML VIAL 1000 MG IV (17:13)
[2023-08-22] MEDS: LACTATED RINGERS 1000ML 1,000 ML 999 ML IV (17:14)
[2023-08-22] MEDS: KETOROLAC 30MG/ML VIAL 15 MG IV (17:14)
[2023-08-22] MEDS: HYDROMORPHONE 2MG/ML SYRINGE 1 MG IV (17:15)
--- NOTE | 2023-08-22 17:26 | PC.NURSE ---
Pt gone to RAD
--- NOTE | 2023-08-22 17:40 | PC.NURSE ---
Pt returned to room from RAD
[2023-08-22 17:48] LABS: Microscopic, Urine URINE MICROSCOPIC (MICROSCOPIC)
[2023-08-22 17:54] LABS: Appearance,Urine CLEAR (Clear); Bilirubin,Urine Negative (Negative); Blood, Urine 2+ (Negative); Color,Urine YELLOW (Yellow); Glucose,Urine (UA) Negative (Negative); Ketones,Urine Negative (Negative); Leukocyte Esterase,Urine Negative (Negative); Nitrate,Urine Negative (Negative); PH,Urine 7.5 (5.0-8.5); Protein,Urine 2+ (Negative); Specific Gravity, Urine 1.025 (1.005-1.030); Urobilinogen,Urine 0.2 EU/dl (0.2)
--- NOTE | 2023-08-22 18:52 | PC.NURSE ---
Called [facility] about this pt being transferred somewhere for Urology for kidneystones. [facility] advised they would call back
--- NOTE | 2023-08-22 18:54 | PC.NURSE ---
Per ER Doctor Tesfaye called [facility] back and cancelled transfer
[2023-08-22 19:03] LABS: Bacteria,Urine Trace /lpf; Cystine Crystals,Urine 3+ /lpf; RBC,Urine 20-50 #/hpf (0-3); Squamous Epithelial Cell,Urine Occasional #/hpf (0-5); WBC,Urine Occasional #/hpf (0-3)
--- NOTE | 2023-08-22 19:19 | PC.NURSE ---
I rounded on the pt, he states his pain is worse and is requesting something to drink. notified.
[2023-08-22] MEDS: ONDANSETRON 4MG/2ML VIAL 4 MG IV (19:36)
[2023-08-22] MEDS: HYDROMORPHONE 2MG/ML SYRINGE 0.5 MG IV (19:36)
--- NOTE | 2023-08-22 19:36 | PC.NURSE ---
pt states he would like to try to d/c home and does not want to be transferred.
--- NOTE | 2023-08-22 20:11 | PC.NURSE ---
pt is now agreeable for transfer to a hospital where is.
--- NOTE | 2023-08-22 20:15 | PC.NURSE ---
call to [facility] re transfer to [facility]
--- NOTE | 2023-08-22 20:42 | PC.NURSE ---
[facility] has no coverage
--- NOTE | 2023-08-22 21:04 | PC.NURSE ---
Called [facility] for possible transfer for Urology. They will call back.
--- NOTE | 2023-08-22 21:11 | PC.NURSE ---
received call back from transfer center. they were inquiring 'why' the patient was requesting [facility] and if he was pre-existing to one of their urologists. advised her that the patient wanted to see a dr zimmer (they were unfamiliar with) and then she told me she would relay the message to the material handling warehouse supervisor and call us back.
--- NOTE | 2023-08-22 21:27 | PC.NURSE ---
I rounded on the pt, he is having N/V. order obtained for IV phenergran
[2023-08-22] MEDS: PROMETHAZINE HCL 25MG/ML 1ML VIAL 25 MG IV (21:31)
[2023-08-22] MEDS: SODIUM CHLORIDE 0.9% 25ML BAG 25 ML IV (21:31)
--- NOTE | 2023-08-22 21:36 | PC.NURSE ---
contacted [facility], spoke with [facility]. No beds available, but offered a waitlist, von declined
--- NOTE | 2023-08-22 21:39 | PC.NURSE ---
called [facility] re: urologic transfer d/t obstructing stone. waiting on cb.
--- NOTE | 2023-08-22 21:45 | PC.NURSE ---
received call back from [facility] speaking with dr gomez
--- NOTE | 2023-08-22 21:46 | PC.NURSE ---
rounded on patient no needs at this time
--- NOTE | 2023-08-22 21:48 | PC.NURSE ---
pt resting with his eyes closed. call rush in reach.
--- NOTE | 2023-08-22 21:51 | PC.NURSE ---
patient accepted at
--- NOTE | 2023-08-22 22:02 | PC.NURSE ---
Report called to Zofia HERNANDEZ at [facility]
== END 2023-08-22 22:15 | disposition other institution (70) ==
PROVIDERS: Physician Assistant; Emergency Provider Student in an Organized Health Care Education/Training Program; PCP Family Medicine
DX: N13.0 Hydronephrosis with ureteropelvic junction obstruction (principal); M54.59 Other low back pain; R10.2 Pelvic and perineal pain; R11.2 Nausea with vomiting, unspecified; Z87.442 Personal history of urinary calculi
CPT/HCPCS: 74176; 80048; 81001; 85025; 96361; 96374; 96375; 96376; 99285; J0131; J2405

== ENCOUNTER 2023-08-27 02:26 | Emergency (ER) | payer SELFPAY ==
[2023-08-27 02:35] VITALS: BP 178/109; PULSE 119; RESP 20; TEMP 36.6; O2SAT 99; BMI 30.9
--- NOTE | 2023-08-27 02:39 | CT_ITS ---
PROCEDURE INFORMATION: Exam: CT Abdomen And Pelvis Without Contrast Exam date and time: 08/27/2023 2:51 AM Age: 22 years old Clinical indication: Abdominal pain; Generalized; Additional info: Abd pain, kidney stone TECHNIQUE: Imaging protocol: Computed tomography of the abdomen and pelvis without contrast. Radiation optimization: All CT scans at this facility use at least one of these dose optimization techniques: automated exposure control; mA and/or kV adjustment per patient size (includes targeted exams where dose is matched to clinical indication); or iterative reconstruction. COMPARISON: CT ABDOMEN PELVIS WO CON 08/22/2023 5:26 PM FINDINGS: Liver: Normal. No mass. Gallbladder and bile ducts: Normal. No calcified stones. No ductal dilation. Pancreas: Normal. No ductal dilation. Spleen: Normal. No splenomegaly. Adrenal glands: Normal. No mass. Kidneys and ureters: There is a 3 mm stone in the proximal left ureter with high-grade left-sided hydronephrosis. There is peripheral increased density within the mid and lower pole of the kidney which could represent a subcapsular hematoma. This measures up to 1.5 cm in thickness in the lower pole. Stomach and bowel: Unremarkable. No obstruction. No mucosal thickening. Appendix: No evidence of appendicitis. Intraperitoneal space: Unremarkable. No free air. No significant fluid collection. Vasculature: Unremarkable. No abdominal aortic aneurysm. Lymph nodes: Unremarkable. No enlarged lymph nodes. Urinary bladder: Unremarkable as visualized. Reproductive: Unremarkable as visualized. Bones/joints: Unremarkable. No acute fracture. Soft tissues: Unremarkable. IMPRESSION: 1. 3 mm stone in the proximal left ureter with high-grade left-sided hydronephrosis. 2. There is peripheral increased density within the mid and lower pole of the kidney which could represent a subcapsular hematoma. This measures up to 1.5 cm in thickness in the lower pole.
--- NOTE | 2023-08-27 02:39 | [facility].EDGENADL ---
Discharge Plan Disposition Patient Disposition: Home, Self-Care Prescriptions Prescriptions: New oxycodone 5 mg tablet 5 mg PO Q8H PRN (Reason: pain) Qty: 12 0RF ondansetron HCl 4 mg tablet 4 mg PO Q8H PRN (Reason: nausea and vomiting) 5 Days Qty: 30 0RF No Action hydrocodone-acetaminophen 5-325 mg tablet 1 tab PO Q6H PRN (Reason: pain) Qty: 10 0RF oxycodone 5 mg tablet 5 mg PO Q8H PRN (Reason: pain) Qty: 10 0RF tamsulosin [Flomax] 0.4 mg capsule 0.4 mg PO HS Qty: 7 0RF ketorolac 10 mg tablet 10 mg PO Q8H PRN (Reason: pain) 1 Days Qty: 14 0RF ondansetron HCl 4 mg tablet 4 mg PO Q8H PRN (Reason: nausea and vomiting) 4 Days Qty: 12 0RF tiopronin 300 MG tablet,delayed release (DR/EC) 300 mg PO BID tamsulosin [Flomax] 0.4 mg capsule 0.4 mg PO DAILY ketorolac 10 mg tablet 10 mg PO Q8H PRN (Reason: pain) Qty: 20 0RF tamsulosin [Flomax] 0.4 mg capsule 0.4 mg PO DAILY Qty: 7 0RF tamsulosin [Flomax] 0.4 mg capsule 0.4 mg PO DAILY Qty: 14 0RF ondansetron 4 mg tablet,disintegrating 4 mg PO Q8H 5 Days Qty: 15 0RF oxycodone 5 mg tablet 5 mg PO Q6H PRN (Reason: severe pain (scale score 7-10)) Qty: 12 0RF tamsulosin [Flomax] 0.4 mg capsule 0.4 mg PO DAILY Qty: 14 0RF ondansetron 4 mg tablet,disintegrating 4 mg PO Q8H 4 Days Qty: 12 0RF ondansetron 4 mg tablet,disintegrating 4 mg PO Q8H PRN (Reason: nausea and vomiting) 4 Days Qty: 9 0RF tamsulosin 0.4 mg capsule 0.4 mg PO DAILY Qty: 10 0RF Rx Instructions: Do not combine with other tamsulosin oxycodone 5 mg tablet 5 mg PO Q8H PRN (Reason: pain) Qty: 9 0RF Rx Instructions: Do not combine with other opiates. Please take Tylenol and ibuprofen first. Do not take your first dose until 4 PM today. tamsulosin 0.4 mg capsule 0.4 mg PO DAILY Qty: 10 0RF ketorolac 10 mg tablet 10 mg PO Q6H PRN (Reason: pain) Qty: 10 0RF Rx Instructions: maximum total duration of 5 days from all oral, intranasal, or parenteral formulations hydrocodone-acetaminophen 5-325 mg tablet 1 tab PO Q6H PRN (Reason: pain) 3 Days Qty: 12 0RF ondansetron 4 mg tablet,disintegrating 4 mg PO Q6H PRN (Reason: nausea and vomiting) 5 Days Qty: 20 0RF Activity Restrictions/Add. Instructions Additional Instructions/Restrictions: Please take medications as prescribed including Tylenol, Toradol, tamsulosin. Please take oxycodone as needed for severe pain. Please take Zofran as needed for nausea and vomiting. Please follow-up with the urologist. Please follow-up with your primary care provider. Please return to the emergency department if you develop any new or worsening symptoms or become concerned for your health. Clinical Impressions Clinical Impression: Hydronephrosis concurrent with and due to calculi of kidney and ureter, Renal colic on left side, Perinephric hematoma Instructions Patient Instructions: DI for Acute Abdominal Pain Discharge ED Provider: Carl Garcia General Adult HPI General Chief complaint: Abdominal Pain Stated complaint: left side pain, kidney stone suregery recently Time Seen by Provider: 08/27/23 02:30 History of Present Illness HPI narrative: 22-year-old male with history of chronic kidney stones, recently had stone removal and stent placement, previous stent earlier today, presents with acute severe left flank pain consistent with prior kidney stones. He reports a small amount of blood in his urine but denies any fever or infectious symptoms. Denies any other significant past medical history. Reports pain is currently severe. Related Data Home Medications Medication Instructions Recorded Confirmed tiopronin 300 mg tablet,delayed 300 mg PO BID Kidney stones 10/14/21 02/21/22 release tamsulosin 0.4 mg capsule (Flomax) 0.4 mg PO DAILY Kidney stones 02/21/22 02/21/22 Previous Rx's Medication Instructions Recorded ketorolac 10 mg tablet 10 mg PO Q8H PRN pain #20 tabs 02/21/22 tamsulosin 0.4 mg capsule (Flomax) 0.4 mg PO DAILY #7 caps 02/21/22 hydrocodone 5 mg-acetaminophen 325 1 tab PO Q6H PRN pain #10 tabs 06/09/22 mg tablet ondansetron 4 mg disintegrating 4 mg PO Q8H 5 days #15 tabs 06/09/22 tablet tamsulosin 0.4 mg capsule (Flomax) 0.4 mg PO DAILY #14 caps 06/09/22 ondansetron 4 mg disintegrating 4 mg PO Q8H 4 days #12 tabs 12/17/22 tablet oxycodone 5 mg tablet 5 mg PO Q6H PRN severe pain (scale 12/17/22 score 7-10) #12 tabs tamsulosin 0.4 mg capsule (Flomax) 0.4 mg PO DAILY #14 caps 12/17/22 ondansetron 4 mg disintegrating 4 mg PO Q8H PRN nausea and 03/13/23 tablet vomiting 4 days #9 tabs oxycodone 5 mg tablet 5 mg PO Q8H PRN pain #9 tabs 03/13/23 tamsulosin 0.4 mg capsule 0.4 mg PO DAILY #10 caps 03/13/23 ketorolac 10 mg tablet 10 mg PO Q8H PRN pain 1 day #14 08/09/23 tabs ondansetron HCl 4 mg tablet 4 mg PO Q8H PRN nausea and 08/09/23 vomiting 4 days #12 tabs oxycodone 5 mg tablet 5 mg PO Q8H PRN pain #10 tabs 08/09/23 tamsulosin 0.4 mg capsule (Flomax) 0.4 mg PO HS #7 caps 08/09/23 hydrocodone 5 mg-acetaminophen 325 1 tab PO Q6H PRN pain 3 days #12 08/22/23 mg tablet tabs ketorolac 10 mg tablet 10 mg PO Q6H PRN pain #10 tabs 08/22/23 ondansetron 4 mg disintegrating 4 mg PO Q6H PRN nausea and 08/22/23 tablet vomiting 5 days #20 tabs tamsulosin 0.4 mg capsule 0.4 mg PO DAILY #10 caps 08/22/23 ondansetron HCl 4 mg tablet 4 mg PO Q8H PRN nausea and 08/27/23 vomiting 5 days #30 tabs oxycodone 5 mg tablet 5 mg PO Q8H PRN pain #12 tabs 08/27/23 Allergies Allergy/AdvReac Type Severity Reaction Status Date / Time No Known Allergies Allergy Verified 02/21/22 17:57 PFSH PFS Disclaimer: The information contained in this section may have been updated after the patient was seen, as this information can be updated by other users. 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 current occupational exposures/hazards: No caffeine: No ROS Obtained: Yes All systems reviewed & no additional complaints except as documented Physical Exam General General appearance: alert and in distress Head Head exam: atraumatic and normocephalic Eye Eye exam: Present normal appearance, PERRL and EOMI ENT ENT exam: Present normal oropharynx and normal external ear exam Neck Neck exam: Present normal inspection and full ROM Chest Chest inspection: Present normal inspection and symmetric chest wall rise; Absent tenderness Respiratory Respiratory exam: Present normal lung sounds bilaterally; Absent respiratory distress Cardiovascular Cardiovascular exam: Present regular rate and normal rhythm Abdominal Exam Abdominal exam: Present soft; Absent distention, tenderness or guarding Extremities Exam Extremities exam: Present normal inspection; Absent edema or joint swelling Back Exam Back exam: Present normal inspection and CVA tenderness (L) Neurological Exam Neurological exam: Present alert and oriented X3; Absent motor sensory deficit Psychiatric Psychiatric exam: Present normal affect and normal mood Skin Skin exam: Present warm, dry and normal color Lymphatic Lymphatic Findings: no adenopathy Medical Decision Making Medical Records Medical records reviewed: Yes I reviewed the patient's medical records. [place] Inquiry Pt receiving controlled substance: No [place] was queried for this patient: No Vital Signs: 08/27/23 02:35 08/27/23 03:43 Temperature 97.9 F 98.1 F Temperature Source Oral Oral Pulse Rate 89 Pulse Rate [Left Radial] 119 H Respiratory Rate 20 18 Blood Pressure 119/58 L Blood Pressure [Right Arm] 178/109 H Blood Pressure Mean [Right Arm] 132 Blood Pressure Source [Right Arm] Automatic Cuff Blood Pressure Position [Right Arm] Sitting 02 Sat by Pulse Oximetry 99 Oxygen Delivery Method Room Air Room Air Lab Data Lab results reviewed: Yes I reviewed the patient's lab results. Lab Results 08/27/23 03:14: Urine Color Yellow, Urine Appearance Clear, Urine pH 6.5, Ur Specific [place] >= 1.030, Urine Protein 1+, Urine Glucose (UA) Negative, Urine Ketones Negative, Urine Blood 3+, Urine Nitrate Negative, Urine Bilirubin Negative, Urine Urobilinogen 0.2, Ur Leukocyte Esterase Negative, Urine RBC 20-50, Urine WBC None, Ur Squamous Epith Cells Occasional, Urine Bacteria Trace Orders (Tests/Meds): ED MEDICATIONS Discontinued Medications Generic Name Dose Route Start Last Admin Trade Name Freq PRN Reason Stop Dose Admin Acetaminophen 1,000 mg 08/27/23 02:39 08/27/23 02:48 Acetaminophen 1,000mg/100ml Vial IV 08/27/23 02:40 1,000 mg ONCE ONE Administration Ketorolac Tromethamine 30 mg 08/27/23 02:39 08/27/23 02:48 Ketorolac 30mg/Ml Vial IV 08/27/23 02:40 30 mg ONCE ONE Administration Morphine Sulfate 4 mg 08/27/23 02:39 08/27/23 02:44 Morphine 4mg/Ml Syringe IV 08/27/23 02:40 4 mg ONCE ONE Administration Ondansetron HCl 4 mg 08/27/23 02:39 08/27/23 02:44 Ondansetron 4mg/2ml Vial IV 08/27/23 02:40 4 mg ONCE ONE Administration ORDERS Category Date Time Status CT abdomen pelvis wo con Stat Cat Scan 08/27/23 02:39 Completed UA [Urinalysis and Microscopic] Stat Lab 08/27/23 03:14 Completed Medical Decision Narrative: 22-year-old male with history of chronic kidney stones presents with acute on chronic severe left flank pain concerning for kidney stone, pulled his stent from recent intervention this morning. History was obtained interactive discussion with patient, family, chart review. On arrival, patient is [afebrile, hemodynamically stable, satting appropriately, alert, oriented x4, GCS 15], moving all extremities spontaneously. Full physical exam performed and significant for patient in distress secondary to pain, left flank tenderness Differential includes but is not limited to ureterolithiasis, hydronephrosis, perinephric abscess, UTI Patient was given 4 mg IV Zofran, 4 mg IV morphine, 30 mg IV Toradol, 1 g IV Tylenol for symptomatic management and correction of underlying abnormalities. Workup initiated including UA, CT Abdo pelvis Noncon. On re-evaluation, patient [remains afebrile, HD stable.] Reports marked symptomatic improvement. Laboratory workup independently interpreted by me and significant for urine without evidence of infection. Imaging independently interpreted by me and significant for tiny left ureteral stone, approximately 2 mm, there is hydronephrosis present though it is unclear whether this is acute or as a result of prior stones and recent stent placement. CT also shows a small perinephric hematoma. I had an interactive discussion with the radiologist regarding specific finding. He reports that this is a very common complication of stent placement, is unlikely to be acute. See radiology read for full review of final results. Transfer for intervention was considered, but deemed unnecessary due to small stone, pain controlled in ED, no infection in the urine. Given patient history, exam and workup, patient's presentation most likely represents acute on chronic left obstructive ureterolithiasis and small perinephric hematoma. Patient was discharged in stable condition. Return precautions given. Patient will follow-up with his urologist. Patient was discharged with opiate prescription due to severity of pain, reports that home Tylenol and Toradol have not been sufficient during most recent stone episodes. Procedures Risk/Benefits of Procedure(s) Were Explained: Yes Critical Care Critical Care Time Critical Care Time: No
[2023-08-27] MEDS: ONDANSETRON 4MG/2ML VIAL 4 MG IV (02:44)
[2023-08-27] MEDS: MORPHINE 4MG/ML SYRINGE 4 MG IV (02:44)
[2023-08-27] MEDS: KETOROLAC 30MG/ML VIAL 30 MG IV (02:48)
[2023-08-27] MEDS: ACETAMINOPHEN 1,000MG/100ML VIAL 1000 MG IV (02:48)
[2023-08-27 03:23] LABS: Microscopic, Urine URINE MICROSCOPIC (MICROSCOPIC)
[2023-08-27 03:24] LABS: Appearance,Urine CLEAR (Clear); Bilirubin,Urine Negative (Negative); Blood, Urine 3+ (Negative); Color,Urine YELLOW (Yellow); Glucose,Urine (UA) Negative (Negative); Ketones,Urine Negative (Negative); Leukocyte Esterase,Urine Negative (Negative); Nitrate,Urine Negative (Negative); PH,Urine 6.5 (5.0-8.5); Protein,Urine 1+ (Negative); Specific Gravity, Urine >= 1.030 (1.005-1.030); Urobilinogen,Urine 0.2 EU/dl (0.2)
[2023-08-27 03:36] LABS: Bacteria,Urine Trace /lpf; RBC,Urine 20-50 #/hpf (0-3); Squamous Epithelial Cell,Urine Occasional #/hpf (0-5)
[2023-08-27 03:43] VITALS: BP 119/58; PULSE 89; RESP 18; TEMP 36.7; O2SAT 96
== END 2023-08-27 03:50 | disposition home or self-care (01) ==
LOC: ER 02:43
PROVIDERS: Emergency Provider Emergency Medicine
DX: R10.32 Left lower quadrant pain; M54.59 Other low back pain; N13.2 Hydronephrosis with renal and ureteral calculous obstruction; S37.012A Minor contusion of left kidney, initial encounter; X58.XXXA Exposure to other specified factors, initial encounter
CPT/HCPCS: 74176; 81001; 96374; 96375; 99285; J0131; J2405

== ENCOUNTER 2023-12-05 19:55 | Emergency (ER) | payer SELFPAY ==
[2023-12-05 19:56] VITALS: BP 152/72; PULSE 98; RESP 19; TEMP 36.8; O2SAT 98
[2023-12-05 20:08] LABS: Microscopic, Urine URINE MICROSCOPIC (MICROSCOPIC)
--- NOTE | 2023-12-05 20:08 | ED_ITS ---
Discharge Plan Disposition Patient Disposition: Home, Self-Care Condition: Good Prescriptions Prescriptions: New tamsulosin [Flomax] 0.4 mg capsule 0.4 mg PO DAILY Qty: 7 0RF oxycodone 5 mg tablet 5 mg PO Q8H PRN (Reason: pain) Qty: 10 0RF ondansetron 4 mg tablet,disintegrating 4 mg PO Q8H PRN (Reason: nausea and vomiting) 4 Days Qty: 12 0RF ketorolac 10 mg tablet 10 mg PO Q8H PRN (Reason: pain) Qty: 10 0RF No Action hydrocodone-acetaminophen 5-325 mg tablet 1 tab PO Q6H PRN (Reason: pain) Qty: 10 0RF oxycodone 5 mg tablet 5 mg PO Q8H PRN (Reason: pain) Qty: 10 0RF tamsulosin [Flomax] 0.4 mg capsule 0.4 mg PO HS Qty: 7 0RF ketorolac 10 mg tablet 10 mg PO Q8H PRN (Reason: pain) 1 Days Qty: 14 0RF ondansetron HCl 4 mg tablet 4 mg PO Q8H PRN (Reason: nausea and vomiting) 4 Days Qty: 12 0RF tiopronin 300 MG tablet,delayed release (DR/EC) 300 mg PO BID tamsulosin [Flomax] 0.4 mg capsule 0.4 mg PO DAILY ketorolac 10 mg tablet 10 mg PO Q8H PRN (Reason: pain) Qty: 20 0RF tamsulosin [Flomax] 0.4 mg capsule 0.4 mg PO DAILY Qty: 7 0RF tamsulosin [Flomax] 0.4 mg capsule 0.4 mg PO DAILY Qty: 14 0RF ondansetron 4 mg tablet,disintegrating 4 mg PO Q8H 5 Days Qty: 15 0RF oxycodone 5 mg tablet 5 mg PO Q6H PRN (Reason: severe pain (scale score 7-10)) Qty: 12 0RF tamsulosin [Flomax] 0.4 mg capsule 0.4 mg PO DAILY Qty: 14 0RF ondansetron 4 mg tablet,disintegrating 4 mg PO Q8H 4 Days Qty: 12 0RF ondansetron 4 mg tablet,disintegrating 4 mg PO Q8H PRN (Reason: nausea and vomiting) 4 Days Qty: 9 0RF tamsulosin 0.4 mg capsule 0.4 mg PO DAILY Qty: 10 0RF Rx Instructions: Do not combine with other tamsulosin oxycodone 5 mg tablet 5 mg PO Q8H PRN (Reason: pain) Qty: 9 0RF Rx Instructions: Do not combine with other opiates. Please take Tylenol and ibuprofen first. Do not take your first dose until 4 PM today. tamsulosin 0.4 mg capsule 0.4 mg PO DAILY Qty: 10 0RF ketorolac 10 mg tablet 10 mg PO Q6H PRN (Reason: pain) Qty: 10 0RF Rx Instructions: maximum total duration of 5 days from all oral, intranasal, or parenteral formulations hydrocodone-acetaminophen 5-325 mg tablet 1 tab PO Q6H PRN (Reason: pain) 3 Days Qty: 12 0RF ondansetron 4 mg tablet,disintegrating 4 mg PO Q6H PRN (Reason: nausea and vomiting) 5 Days Qty: 20 0RF oxycodone 5 mg tablet 5 mg PO Q8H PRN (Reason: pain) Qty: 12 0RF ondansetron HCl 4 mg tablet 4 mg PO Q8H PRN (Reason: nausea and vomiting) 5 Days Qty: 30 0RF Referrals Follow up/Referrals: Arun Scott MD [Primary Care Provider] - See instructions Activity Restrictions/Add. Instructions Additional Instructions/Restrictions: You were evaluated in the emergency department today. At this time based on your symptoms, some blood in your urine, and mild dilation of the ureter on the left, we feel you likely have a kidney stone again. It is important to note no CT scan was obtained during this visit, so we cannot definitively say whether or not you have a stone or how large it may be. Since labs are reassuring, we elected to forego this at this time. 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 Follow-up closely with your primary care provider as well as urology. Return to the emergency department for new or worsening symptoms, such as significant worsening in pain, fever greater than 100.4 ?F, intractable nausea and vomiting, or other concerns. Clinical Impressions Clinical Impression: Renal colic on left side, Abdominal pain Stand Alone Forms Stand Alone Forms: Work/School Release Instructions Patient Instructions: DI for Kidney Stones, DI for Acute Abdominal Pain Print Language Print Language: [place] Discharge ED Provider: Consuelo Saravia General Adult HPI General Chief complaint: Abdominal Pain Stated complaint: possible kidney stones Time Seen by Provider: 12/05/23 20:04 History of Present Illness HPI narrative: This patient is a 23-year-old male with a history of recurrent kidney stones presenting to the emergency department for evaluation concern for left flank pain that started approximately 30 minutes prior to arrival. No other symptoms, such as fevers, chills, nausea, vomiting, rashes, or swelling. He does note mild diarrhea. The pain is in his left low back and radiates around to his testicles. It feels the same as prior kidney stones. No other concerns noted at this time. Related Data Home Medications ?Medication ?Instructions ?Recorded ?Confirmed tiopronin 300 mg tablet,delayed 300 mg PO BID Kidney stones 10/14/21 02/21/22 release tamsulosin 0.4 mg capsule (Flomax) 0.4 mg PO DAILY Kidney stones 02/21/22 02/21/22 Previous Rx's ?Medication ?Instructions ?Recorded ketorolac 10 mg tablet 10 mg PO Q8H PRN pain #20 tabs 02/21/22 tamsulosin 0.4 mg capsule (Flomax) 0.4 mg PO DAILY #7 caps 02/21/22 hydrocodone 5 mg-acetaminophen 325 1 tab PO Q6H PRN pain #10 tabs 06/09/22 mg tablet ondansetron 4 mg disintegrating 4 mg PO Q8H 5 days #15 tabs 06/09/22 tablet tamsulosin 0.4 mg capsule (Flomax) 0.4 mg PO DAILY #14 caps 06/09/22 ondansetron 4 mg disintegrating 4 mg PO Q8H 4 days #12 tabs 12/17/22 tablet oxycodone 5 mg tablet 5 mg PO Q6H PRN severe pain (scale 12/17/22 score 7-10) #12 tabs tamsulosin 0.4 mg capsule (Flomax) 0.4 mg PO DAILY #14 caps 12/17/22 ondansetron 4 mg disintegrating 4 mg PO Q8H PRN nausea and 03/13/23 tablet vomiting 4 days #9 tabs oxycodone 5 mg tablet 5 mg PO Q8H PRN pain #9 tabs 03/13/23 tamsulosin 0.4 mg capsule 0.4 mg PO DAILY #10 caps 03/13/23 ketorolac 10 mg tablet 10 mg PO Q8H PRN pain 1 day #14 08/09/23 tabs ondansetron HCl 4 mg tablet 4 mg PO Q8H PRN nausea and 08/09/23 vomiting 4 days #12 tabs oxycodone 5 mg tablet 5 mg PO Q8H PRN pain #10 tabs 08/09/23 tamsulosin 0.4 mg capsule (Flomax) 0.4 mg PO HS #7 caps 08/09/23 hydrocodone 5 mg-acetaminophen 325 1 tab PO Q6H PRN pain 3 days #12 08/22/23 mg tablet tabs ketorolac 10 mg tablet 10 mg PO Q6H PRN pain #10 tabs 08/22/23 ondansetron 4 mg disintegrating 4 mg PO Q6H PRN nausea and 08/22/23 tablet vomiting 5 days #20 tabs tamsulosin 0.4 mg capsule 0.4 mg PO DAILY #10 caps 08/22/23 ondansetron HCl 4 mg tablet 4 mg PO Q8H PRN nausea and 08/27/23 vomiting 5 days #30 tabs oxycodone 5 mg tablet 5 mg PO Q8H PRN pain #12 tabs 08/27/23 ketorolac 10 mg tablet 10 mg PO Q8H PRN pain #10 tabs 12/05/23 ondansetron 4 mg disintegrating 4 mg PO Q8H PRN nausea and 12/05/23 tablet vomiting 4 days #12 tabs oxycodone 5 mg tablet 5 mg PO Q8H PRN pain #10 tabs 12/05/23 tamsulosin 0.4 mg capsule (Flomax) 0.4 mg PO DAILY #7 caps 12/05/23 Allergies Allergy/AdvReac Type Severity Reaction Status Date / Time No Known Allergies [facility]ergy Verified 02[facility]21[facility]22 17:[facility] Disclaimer: The information contained in this section may have been updated after the patient was seen, as this information can be updated by other users. 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 current occupational exposures/hazards: No caffeine: No ROS Obtained: Yes All systems reviewed & no additional complaints except as documented Physical Exam General General appearance: alert Comment: Uncomfortable appearing Head Head exam: atraumatic and normocephalic Eye Eye exam: Present normal appearance, PERRL and EOMI ENT ENT exam: Present normal exam, normal oropharynx, mucous membranes moist and normal external ear exam Neck Neck exam: Present normal inspection, full ROM and trachea midline; Absent tenderness Chest Chest inspection: Present normal inspection and symmetric chest wall rise; Absent tenderness Respiratory Respiratory exam: Present normal lung sounds bilaterally; Absent respiratory distress, wheezes, stridor or accessory muscle use Cardiovascular Cardiovascular exam: Present regular rate and normal rhythm Abdominal Exam Abdominal exam: Present soft; Absent distention, tenderness or guarding Extremities Exam Extremities exam: Present normal inspection, full ROM and normal capillary refill; Absent tenderness or edema Back Exam Back exam: Present full ROM and CVA tenderness (L) Neurological Exam Neurological exam: Present alert, oriented X3, CN II-XII intact and normal gait; Absent motor sensory deficit Psychiatric Psychiatric exam: Present normal affect and normal mood Skin Skin exam: Present warm and dry Medical Decision Making Medical Records Medical records reviewed: Yes I reviewed the patient's medical records. [place] Inquiry Pt receiving controlled substance: Yes [place] was queried for this patient: Yes Risks and benefits of using a controlled substance: were discussed with pt by me Vital Signs: 12/05/23 19:56 12/05/23 21:12 12/05/23 21:34 Temperature 98.2 F 98.7 F Temperature Source Oral Oral Pulse Rate 77 77 Pulse Rate [Left Radial] 98 H Respiratory Rate 19 18 Blood Pressure 143/66 H 130/63 Blood Pressure [Right Arm] 152/72 H Blood Pressure Mean 89 Blood Pressure Mean [Right Arm] 98 Blood Pressure Source Automatic Cuff Blood Pressure Source [Right Arm] Automatic Cuff Blood Pressure Position Supine Blood Pressure Position [Right Arm] Sitting 02 Sat by Pulse Oximetry 98 95 Oxygen Delivery Method Room Air Room Air Room Air Lab Data Lab results reviewed: Yes I reviewed the patient's lab results. Lab Results 12/05/23 20:04: Urine Color Yellow, Urine Appearance Clear, Urine pH 6.0, Ur Specific [place] 1.025, Urine Protein Negative, Urine Glucose (UA) Negative, Urine Ketones Negative, Urine Blood Negative, Urine Nitrate Negative, Urine Bilirubin Negative, Urine Urobilinogen 0.2, Ur Leukocyte Esterase Negative, Urine RBC Occasional, Urine WBC Occasional, Ur Squamous Epith Cells Occasional, Urine Bacteria None 12/05/23 20:05: WBC 6.8, RBC 5.75, Hgb 16.4, Hct 49.8, MCV 86.6, MCH 28.5, MCHC 32.9, RDW 13.7, Plt Count 259, MPV 7.9, Neut % (Auto) 67.7, Lymph % (Auto) 24.2, [place] % (Auto) 4.7, Eos % (Auto) 2.5, Baso % (Auto) 0.9, Neut # (Auto) 4.6, Lymph # (Auto) 1.6, [place] # (Auto) 0.3, Eos # (Auto) 0.2, Baso # (Auto) 0.1, Sodium 141, Potassium 4.2, Chloride 107, Carbon Dioxide 29, Anion Gap 9.2, BUN 12, Creatinine 1.00, Estimated Creat Clear 129, Estimated GFR 93, Est GFR ( Amer) 112, Glucose 100, Calcium 9.2, Total Bilirubin 0.5, AST 34, ALT 47, Alkaline Phosphatase 67, Total Protein 7.5, Albumin 4.5, Globulin 3.0, Albumin/Globulin Ratio 1.5 12/05/23 20:05 12/05/23 20:05 Orders (Tests/Meds): ED MEDICATIONS Discontinued Medications Generic Name Dose Route Start Last Admin Trade Name Freq PRN Reason Stop Dose Admin Acetaminophen 1,000 mg 12/05/23 20:07 12/05/23 20:17 Acetaminophen 1,000mg/100ml Vial IV 12/05/23 20:08 1,000 mg ONCE ONE Administration Lactated Ringer's 1,000 mls @ 999 mls/hr 12/05/23 20:07 12/05/23 20:17 Lactated Ringer's 1000 Ml Bag IV 12/05/23 21:07 999 mls/hr .Q1H1M ONE Administration Ketorolac Tromethamine 15 mg 12/05/23 20:07 12/05/23 20:17 Ketorolac 30mg/Ml Vial IV 12/05/23 20:08 15 mg ONCE ONE Administration Morphine Sulfate 4 mg 12/05/23 20:07 12/05/23 20:17 Morphine 4mg/Ml Syringe IV 12/05/23 20:08 4 mg ONCE ONE Administration Ondansetron HCl 4 mg 12/05/23 20:07 12/05/23 20:17 Ondansetron 4mg/2ml Vial IV 12/05/23 20:08 4 mg ONCE ONE Administration Oxycodone HCl 5 mg 12/05/23 20:49 12/05/23 20:55 Oxycodone 5mg Immediate Release Tablet PO 12/05/23 20:50 5 mg ONCE ONE Administration Tamsulosin HCl 0.4 mg 12/05/23 20:50 12/05/23 20:55 Tamsulosin 0.4mg Capsule PO 12/05/23 20:51 0.4 mg ONCE ONE Administration ORDERS Category Date Time Status POCUS Point of Care (ER Only) Stat Exams 12/05/23 20:08 Ordered Complete Blood Count Auto Diff Stat Lab 12/05/23 20:05 Completed Comprehensive Metabolic Panel Stat Lab 12/05/23 20:05 Completed UA [Urinalysis and Microscopic] Stat Lab 12/05/23 20:04 Completed Urine Culture Stat Micro 12/05/23 20:04 Received Medical Decision Narrative: In summary, this patient is a 23-year-old male presenting to the Emergency Department for evaluation of left flank pain that feels similar to prior kidney stones. Differential diagnoses considered include but are not limited to ureterolithiasis, cystitis, pyelonephritis, colitis, gastroenteritis. Ruling out the most morbid conditions drove assessment. It should be noted patient's history includes recurrent kidney stones which is likely not at goal therapy. This complicates all aspects of care by increasing patient's risk for morbidity. I reviewed patient's past medical records and noted multiple previous evaluations for flank pain with diagnosis of kidney stone in the past. Unfortunately given the patient's recurrent kidney stones, he has had multiple CT scans in the past as well- I count 18 since 2018. On exam, the patient is uncomfortable appearing with left CVA tenderness. Abdominal exam is benign. Workup included CBC, CMP, urinalysis, urine culture, and bedside renal ultrasound to try and save the patient radiation from a CT scan. Patient was given a bolus of IV fluids as well as IV Toradol, morphine, acetaminophen, and Zofran for symptomatic improvement. On reassessment, the patient is resting comfortably with improved symptoms. Abdominal exam remains benign. Urinalysis is actually fairly clean with only occasional red blood cell and no significant hematuria. No evidence of infection. Is reassuring with no significant leukocytosis, no transaminitis, normal kidney function. Bedside renal ultrasound was performed that demonstrated trace hydronephrosis of the left kidney but otherwise is reassuring. No significant hydronephrosis noted. It is possible that the patient does have a kidney stone again, or he could have colitis given that he had diarrhea. Ultimately, I had shared decision-making with the patient and advised that we could obtain CT scan to further assess, but patient is in agreement that he had a lot of CT scans here in the emergency department and he states that since he is feeling better he would be okay waiting it out at home to see if his symptoms resolve as opposed to risking the radiation of another CT scan. I advised him that CT scan is the only way to definitively tell if he has an obstructive stone, and he expressed understanding and agreement. He states that it feels very similar and he does have occasional red blood cells in his urine with trace hydronephrosis on the left side, so I feel this is sufficient to diagnose likely ureterolithiasis. At this time given the patient's symptoms are improved, I feel that he is appropriate for discharge home with prescriptions, including oxycodone to take as needed for severe pain, Toradol, Zofran, and Flomax. He was given a dose of PO oxycodone and flomax prior to dc. Patient again reassessed and states that he is feeling better and is ready to go home. He again expressed understanding that we did not obtain a CT scan here to definitively diagnose today, however we are treating for likely stone. He was given strict return precautions and was discharged after all questions were answered. Procedures Limited Ultrasound Findings:: Limited renal ultrasound Indication: A focused ultrasound of the kidneys was performed to evaluate for hydronephrosis and nephrolithiasis. The ultrasound was performed with the following indications, as noted in the H&P: Flank pain Identified structures: Both kidneys Findings: Bilateral kidneys Mild hydronephrosis of the left kidney Impression: Mild hydronephrosis of the left kidney Images were saved to permanent archive The study was technically adequate CPT: 87979-01 This study was performed by me, and I personally interpreted all images/videos. Based on my clinical judgement, these images were adequate and did not necessitate further imaging. Critical Care Critical Care Time Critical Care Time: No
[2023-12-05 20:13] LABS: Basophils # 0.1 K/mm3 (0-0.2); Basophils % 0.9 % (0.1-2.0); Eosinophils # 0.2 K/mm3 (0.0-0.4); Eosinophils % 2.5 % (0.1-12.0); Hematocrit 49.8 % (42.0-52.0); Hemoglobin 16.4 g/dL (14.1-18.0); Lymphocytes # 1.6 K/mm3 (0.7-4.5); Lymphocytes % 24.2 % (10-50); Mean Corpuscular HGB Conc 32.9 g/dL (31.8-35.4); Mean Corpuscular Hemoglobin 28.5 pg (27.0-31.2); Mean Corpuscular Volume 86.6 fl (80-94); Mean Platelet Volume 7.9 fl (7.4-10.4); Monocytes # 0.3 K/mm3 (0.1-1.0); Monocytes % 4.7 % (1.7-9.3); Neutrophils # 4.6 K/mm3 (1.8-7.8); Neutrophils % 67.7 % (37.0-80.0); Platelet Count 259 K/mm3 (142-424); Red Blood Count 5.75 M/mm3 (4.60-6.20); Red Cell Distribution Width 13.7 % (11.5-17.5); White Blood Count 6.8 K/mm3 (4.8-10.8)
[2023-12-05 20:15] LABS: Appearance,Urine CLEAR (Clear); Bilirubin,Urine Negative (Negative); Blood, Urine Negative (Negative); Color,Urine YELLOW (Yellow); Glucose,Urine (UA) Negative (Negative); Ketones,Urine Negative (Negative); Leukocyte Esterase,Urine Negative (Negative); Nitrate,Urine Negative (Negative); Protein,Urine Negative (Negative); Specific Gravity, Urine 1.025 (1.005-1.030); Urobilinogen,Urine 0.2 EU/dl (0.2)
[2023-12-05] MEDS: LACTATED RINGERS 1000ML 1,000 ML 999 ML IV (20:17)
[2023-12-05] MEDS: ACETAMINOPHEN 1,000MG/100ML VIAL 1000 MG IV (20:17)
[2023-12-05] MEDS: MORPHINE 4MG/ML SYRINGE 4 MG IV (20:17)
[2023-12-05] MEDS: KETOROLAC 30MG/ML VIAL 15 MG IV (20:17)
[2023-12-05] MEDS: ONDANSETRON 4MG/2ML VIAL 4 MG IV (20:17)
[2023-12-05 20:19] LABS: Albumin Level 4.5 g/dl (3.5-5.0); Chloride 107 mmol/L (98-107); Potassium 4.2 mmoL/L (3.5-5.1); Sodium 141 mmol/L (136-145)
[2023-12-05 20:22] LABS: Alanine Aminotransferase 47 U/L (12-78); Albumin/Globulin Ratio 1.5 (1.1-1.8); Alkaline Phosphatase 67 U/L (38-126); Anion Gap 9.2 mEq/L (5-15); Aspartate Amino Transferase 34 U/L (17-59); Bilirubin,Total 0.5 mg/dl (0.2-1.3); Blood Urea Nitrogen 12 mg/dl (9-20); Carbon Dioxide 29 mmol/L (22.0-30.0); Creatinine Clearance Estimated 129 mL/min (50-200); Estimated Glomerular Filt Rate 93 ml/min (>60); GFR (African American) 112 ML/MIN (>60); Total Protein,Serum 7.5 g/dl (6.3-8.2)
[2023-12-05 20:23] LABS: Calcium 9.2 mg/dl (8.4-10.2); Glucose 100 mg/dl (74-100)
[2023-12-05 20:25] LABS: RBC,Urine Occasional #/hpf (0-3); Squamous Epithelial Cell,Urine Occasional #/hpf (0-5); WBC,Urine Occasional #/hpf (0-3)
[2023-12-05] MEDS: OXYCODONE 5MG IMMEDIATE RELEASE TABLET 5 MG PO (20:55)
[2023-12-05] MEDS: TAMSULOSIN 0.4MG CAPSULE 0.4 MG PO (20:55)
[2023-12-05 21:12] VITALS: BP 143/66; PULSE 77; O2SAT 95
[2023-12-05 21:34] VITALS: BP 130/63; PULSE 77; RESP 18; TEMP 37.1; O2SAT 97
== END 2023-12-05 21:39 | disposition home or self-care (01) ==
PROVIDERS: Emergency Provider Emergency Medicine; PCP Family Medicine
DX: R10.32 Left lower quadrant pain (principal); M54.59 Other low back pain; N13.39 Other hydronephrosis; B96.89 Other specified bacterial agents as the cause of diseases classified elsewhere; Z87.442 Personal history of urinary calculi
CPT/HCPCS: 80053; 81001; 85025; 87086; 96361; 96374; 96375; 99285; J0131; J1885; J2270; J2405; J7120

== ENCOUNTER 2024-02-17 18:09 | Emergency (ER) | payer OTHER, SELFPAY ==
--- NOTE | 2024-02-17 18:31 | CT_ITS ---
PROCEDURE INFORMATION: Exam: CT Abdomen And Pelvis With Contrast Exam date and time: 02/17/2024 6:55 PM Age: 23 years old Clinical indication: Abdominal pain; Flank; Left; Additional info: Left-sided flank pain, history of nephrolithiasis TECHNIQUE: Imaging protocol: Computed tomography of the abdomen and pelvis with contrast. Radiation optimization: All CT scans at this facility use at least one of these dose optimization techniques: automated exposure control; mA and/or kV adjustment per patient size (includes targeted exams where dose is matched to clinical indication); or iterative reconstruction. Contrast material: ISOVUE; Contrast volume: 75 ml; Contrast route: IV; COMPARISON: CT ABDOMEN PELVIS WO CON 08/27/2023 2:51 AM FINDINGS: Lungs: The visualized lung bases demonstrate no focal infiltrates. Liver: Moderate diffuse hepatic steatosis is identified. Gallbladder and biliary ducts: The gallbladder is normal. There is no evidence of biliary ductal dilation. Pancreas: The pancreas is normal. Spleen: The spleen is normal. Adrenal glands: The adrenal glands appear within normal limits. Kidneys and ureters: Right kidney normal. Moderate left renal hydronephrosis with delayed nephrogram. This is likely due to a recently passed stone. No left-sided ureteral stones identified currently. 1 mm stone left kidney lower pole. Stomach and bowel: The stomach appears within normal limits. No wall thickening or inflammatory change. Appendix: No evidence of appendicitis. Intraperitoneal space: No free air. No evidence for focal fluid collection or ascites. No evidence for omental thickening. Vasculature: Unremarkable. No abdominal aortic aneurysm. Lymph nodes: Unremarkable. No pathologically enlarged lymph nodes are identified. Urinary bladder: There is a stone within the bladder lumen layering within the right dependent portion of the bladder that likely represents a passed stone. It measures 1 mm. Reproductive: The prostate gland appears normal. Bones/joints: Unremarkable. No acute fracture. Soft tissues: Unremarkable. IMPRESSION: 1. Right kidney normal. Moderate left renal hydronephrosis with delayed nephrogram. There is a stone within the bladder lumen layering within the right dependent portion of the bladder that likely represents the recently passed stone. It measures 1 mm. No left-sided ureteral stones identified currently. 2. 1 mm stone left kidney lower pole.
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
[2024-02-17 18:36] VITALS: BP 148/102; PULSE 120; RESP 20; TEMP 36.6; O2SAT 97; BMI 29.2
[2024-02-17 18:44] LABS: Microscopic, Urine URINE MICROSCOPIC (MICROSCOPIC)
[2024-02-17] MEDS: ONDANSETRON 4MG/2ML VIAL 4 MG IV (18:44)
[2024-02-17] MEDS: KETOROLAC 30MG/ML VIAL 15 MG IV (18:45)
[2024-02-17 18:47] LABS: Basophils # 0.1 K/mm3 (0-0.2); Eosinophils # 0.2 K/mm3 (0.0-0.4); Hemoglobin 16.8 g/dL (14.1-18.0); Lymphocytes # 2.7 K/mm3 (0.7-4.5); Lymphocytes % 27.1 % (10-50); Mean Corpuscular HGB Conc 33.6 g/dL (31.8-35.4); Mean Corpuscular Volume 83.6 fl (80-94); Mean Platelet Volume 7.4 fl (7.4-10.4); Monocytes # 0.6 K/mm3 (0.1-1.0); Monocytes % 6.4 % (1.7-9.3); Neutrophils # 6.3 K/mm3 (1.8-7.8); Neutrophils % 63.5 % (37.0-80.0); Platelet Count 295 K/mm3 (142-424); Red Blood Count 5.99 M/mm3 (4.60-6.20); Red Cell Distribution Width 13.8 % (11.5-17.5)
[2024-02-17 18:47] LABS: Appearance,Urine CLEAR (Clear); Bilirubin,Urine Negative (Negative); Blood, Urine TRACE-I (Negative); Color,Urine YELLOW (Yellow); Glucose,Urine (UA) Negative (Negative); Ketones,Urine Negative (Negative); Leukocyte Esterase,Urine Negative (Negative); Nitrate,Urine Negative (Negative); Protein,Urine Negative (Negative); Specific Gravity, Urine >= 1.030 (1.005-1.030); Urobilinogen,Urine 0.2 EU/dl (0.2)
[2024-02-17 18:56] LABS: Albumin Level 4.9 g/dl (3.5-5.0); Chloride 103 mmol/L (98-107); Potassium 4.4 mmoL/L (3.5-5.1); Sodium 139 mmol/L (136-145)
--- NOTE | 2024-02-17 18:57 | PC.NURSE ---
Pt back in from from ct scan
[2024-02-17] MEDS: SODIUM CHLORIDE 0.9% 10ML SYR (RAD ONLY) 10 ML IV (18:58)
[2024-02-17] MEDS: IOPAMIDOL-370 (76%);100ML BOTTLE 75 ML IV (18:58)
[2024-02-17 18:59] LABS: Cystine Crystals,Urine Trace /lpf; Mucus,Urine 3+ /lpf; Squamous Epithelial Cell,Urine Occasional #/hpf (0-5)
[2024-02-17 18:59] LABS: Alanine Aminotransferase 54 U/L (12-78); Albumin/Globulin Ratio 1.6 (1.1-1.8); Alkaline Phosphatase 53 U/L (38-126); Anion Gap 12.4 mEq/L (5-15); Aspartate Amino Transferase 35 U/L (17-59); Bilirubin,Total 0.6 mg/dl (0.2-1.3); Blood Urea Nitrogen 16 mg/dl (9-20); Carbon Dioxide 28 mmol/L (22.0-30.0); Creatinine Clearance Estimated 66 mL/min (50-200); Estimated Glomerular Filt Rate 44 ml/min (>60); GFR (African American) 53 ML/MIN (>60); Globulin 3.1 g/dL (1.3-3.2); Glucose 114 mg/dl (74-100); Lipase 558 U/L (23-300)
[2024-02-17 19:13] VITALS: BP 130/72; PULSE 100; O2SAT 98
[2024-02-17 19:31] VITALS: BP 131/51; PULSE 108; O2SAT 98
[2024-02-17 20:00] VITALS: BP 117/59; PULSE 94; O2SAT 87
[2024-02-17] MEDS: 0.9 % SODIUM CHLORIDE 1000ML 1,000 ML 999 ML IV (20:10)
[2024-02-17] MEDS: MORPHINE 4MG/ML SYRINGE 2 MG IV (20:10)
[2024-02-17 20:57] VITALS: BP 114/70; PULSE 95; RESP 18; TEMP 36.6; O2SAT 100
[2024-02-17 22:42] LABS: HIV (1&2) Antibody Rapid NONREACTIVE (NONREACTIVE)
[2024-02-19 08:10] LABS: HCV Ab Non Reactive (Non Reactive)
== END 2024-02-17 21:10 | disposition home or self-care (01) ==
PROVIDERS: Physician Assistant; Emergency Provider Emergency Medicine; PCP Family Medicine
DX: N20.0 Calculus of kidney; N13.30 Unspecified hydronephrosis; N23 Unspecified renal colic; R11.0 Nausea; M54.9 Dorsalgia, unspecified
CPT/HCPCS: 74177; 80053; 81001; 83690; 85025; 86803; 87389; 96361; 96374; 96375; 99285; J1885; J2270; J2405; J7030; Q9967

== ENCOUNTER 2024-07-23 07:04 | Emergency (ER) | payer BC, SELFPAY ==
[2024-07-23 07:12] VITALS: BP 185/96; PULSE 103; RESP 20; TEMP 36.6; O2SAT 99; BMI 32.5
[2024-07-23 07:15] VITALS: PULSE 116; O2SAT 99
[2024-07-23 07:28] LABS: Basophils # 0.1 K/mm3 (0-0.2); Basophils % 0.9 % (0.1-2.0); Eosinophils # 0.2 K/mm3 (0.0-0.4); Eosinophils % 2.4 % (0.1-12.0); Hematocrit 48.3 % (42.0-52.0); Hemoglobin 15.9 g/dL (14.1-18.0); Lymphocytes # 2.6 K/mm3 (0.7-4.5); Lymphocytes % 27.9 % (10-50); Mean Corpuscular HGB Conc 32.9 g/dL (31.8-35.4); Mean Corpuscular Hemoglobin 27.6 pg (27.0-31.2); Mean Corpuscular Volume 83.9 fl (80-94); Mean Platelet Volume 10.1 fl (7.4-10.4); Monocytes # 0.7 K/mm3 (0.1-1.0); Monocytes % 7.7 % (1.7-9.3); Neutrophils # 5.7 K/mm3 (1.8-7.8); Neutrophils % 60.5 % (37.0-80.0); Platelet Count 299 K/mm3 (142-424); Red Blood Count 5.76 M/mm3 (4.60-6.20); Red Cell Distribution Width 12.7 % (11.5-17.5); White Blood Count 9.3 K/mm3 (4.8-10.8)
[2024-07-23 07:30] VITALS: BP 142/51; PULSE 107; O2SAT 97
--- NOTE | 2024-07-23 07:38 | PC.NURSE ---
Dr Saravia at bedside
[2024-07-23 07:40] LABS: Albumin Level 4.8 g/dl (3.5-5.0); Chloride 107 mmol/L (98-107); Sodium 142 mmol/L (136-145)
--- NOTE | 2024-07-23 07:41 | HMH.EDGENADL ---
Discharge Plan Disposition Patient Disposition: Home, Self-Care Condition: Good Prescriptions Prescriptions: No Action No Known Home Medications Referrals Follow up/Referrals: Arun Scott MD [Primary Care Provider] - See instructions Activity Restrictions/Add. Instructions Additional Instructions/Restrictions: You were evaluated in the emergency department today. You have dilation of the ureter on the left with some blood in your urine, but I do not see a visible stone at this time. It is possible you already passed it prior to obtaining the scan. Follow-up closely with urology. We do not have an interventional urologist at our healthcare facility, but one close option is Dr. Corey Bob in [place] ([facility] - [address], [address], [place], [place] [id number] - [phone]). Please make sure you drink plenty of fluids and stay orally hydrated. Take Tylenol and ibuprofen at home as needed for pain. Follow-up closely with your primary care provider as well. Return to the emergency department for new or worsening symptoms such as significant worsening in pain, fever greater than 100.4 ?F, intractable nausea and vomiting. Clinical Impressions Clinical Impression: Hydronephrosis of left kidney, Hematuria Stand Alone Forms Stand Alone Forms: Work/School Release Instructions Patient Instructions: DI for Kidney Stones, DI for Acute Pain -- Adult Print Language Print Language: Andorran Discharge ED Provider: Consuelo Saravia General Adult HPI General Chief complaint: PAIN Stated complaint: abd pain, history of kidney stones Time Seen by Provider: 07/23/24 07:24 Mode of Arrival: Family Vehicle Source of Information: Patient and Medical Record Description of Symptoms (Recalled from ER Triage Doc. by RN): Pt c/o L flank and back pain that began at 0500 today. He has a significant hx of kidney stones and states I think I have another small one . His last stone was approx 4 mn ago. 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 Denies any vomiting or urinary sxs. Denies any gross hematuria. History of Present Illness HPI narrative: This patient is a 23-year-old male with a history of recurrent kidney stones presenting to the emergency department for evaluation with concern for left flank pain that started around 5:00 this morning. He states that it feels like another kidney stone. He was well when he went to bed last night. No fevers, vomiting, changes in bowel movements, or notable urinary symptoms. Related Data Home Medications ?Medication ?Instructions ?Recorded ?Confirmed No Known Home Medications 07/23/24 07/23/24 Allergies Allergy/AdvReac Type Severity Reaction Status Date / Time No Known Allergies [facility]ergy Verified 02/21[facility]22 17:57 [facility] Disclaimer: The information contained in this section may have been updated after the patient was seen, as this information can be updated by other users. 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 current occupational exposures/hazards: No caffeine: No Have you lived/traveled outside US in past 30 days?: No Contact w/someone who lives/traveled outside US past 30 days?: No Exposure to someone with infectious disease in past 14 days?: No Do you have a fever (greater than 100.4 F or 38 C)?: No Have you tested positive for COVID-19: No Exposed to someone with COVID-19 in past 14 days?: No Do you have a sore throat?: No Do you have a cough?: No Do you have any weakness?: No Do you have any diarrhea?: No Are you experiencing any unusual bleeding?: No Do you have any muscle aches/pain?: No Do you have any abdominal pain?: Yes Are you experiencing loss of taste or smell?: No Other Medical History Have you received the Flu Vaccine for this season: No Have you received the Pneumonia Vaccine: No ROS Obtained: Yes All systems reviewed & no additional complaints except as documented Physical Exam General General appearance: alert and anxious Comment: Uncomfortable appearing Head Head exam: atraumatic and normocephalic Eye Eye exam: Present normal appearance, PERRL and EOMI ENT ENT exam: Present normal exam, normal oropharynx, mucous membranes moist and normal external ear exam Neck Neck exam: Present normal inspection, full ROM and trachea midline; Absent tenderness Chest Chest inspection: Present normal inspection and symmetric chest wall rise; Absent tenderness Respiratory Respiratory exam: Present normal lung sounds bilaterally; Absent respiratory distress, wheezes, stridor or accessory muscle use Cardiovascular Cardiovascular exam: Present normal rhythm and tachycardia Abdominal Exam Abdominal exam: Present soft; Absent distention, tenderness or guarding Extremities Exam Extremities exam: Present normal inspection, full ROM and normal capillary refill; Absent tenderness or edema Back Exam Back exam: Present full ROM and CVA tenderness (L) Neurological Exam Neurological exam: Present alert, oriented X3, CN II-XII intact and normal gait; Absent motor sensory deficit Psychiatric Psychiatric exam: Present normal affect and normal mood Skin Skin exam: Present warm and dry Medical Decision Making Medical Records Medical records reviewed: Yes I reviewed the patient's medical records. Screening: Per USPSTF and CDC recommendations, given the prevalence of disease in our region, it is our hospital?s policy to screen for HIV and viral Hepatitis for all patients aged 18 and over and those with ongoing risk factors. Maynor Inquiry Pt receiving controlled substance: No Vital Signs: 07/23/24 07:12 07/23/24 07:15 07/23/24 07:30 Temperature 97.9 F Temperature Source Oral Pulse Rate 116 H 107 H Pulse Rate [Right] 103 H Respiratory Rate 20 Blood Pressure 142/51 H Blood Pressure [Left Arm] 185/96 H Blood Pressure Mean [Left Arm] 125 Blood Pressure Source Blood Pressure Source [Left Arm] Automatic Cuff 02 Sat by Pulse Oximetry 99 99 97 Oxygen Delivery Method Room Air Room Air Room Air 07/23/24 08:00 07/23/24 08:15 07/23/24 10:10 Temperature 97.7 F Temperature Source Oral Pulse Rate 101 H 95 H 80 Pulse Rate [Right] Respiratory Rate 16 Blood Pressure 138/81 138/81 135/66 Blood Pressure [Left Arm] Blood Pressure Mean [Left Arm] Blood Pressure Source Automatic Cuff Blood Pressure Source [Left Arm] 02 Sat by Pulse Oximetry 98 95 Oxygen Delivery Method Room Air Room Air Lab Data Lab results reviewed: Yes I reviewed the patient's lab results. Lab Results 07/23/24 07:18: WBC 9.3, RBC 5.76, Hgb 15.9, Hct 48.3, MCV 83.9, MCH 27.6, MCHC 32.9, RDW 12.7, Plt Count 299, MPV 10.1, Neut % (Auto) 60.5, Lymph % (Auto) 27.9, [place] % (Auto) 7.7, Eos % (Auto) 2.4, Baso % (Auto) 0.9, Neut # (Auto) 5.7, Lymph # (Auto) 2.6, [place] # (Auto) 0.7, Eos # (Auto) 0.2, Baso # (Auto) 0.1, Sodium 142, Potassium 4.0, Chloride 107, Carbon Dioxide 26, Anion Gap 13.0, BUN 12, Creatinine 0.90, Estimated Creat Clear 156, Estimated GFR 105, Est GFR ( Amer) 127, Glucose 119 H, Calcium 9.2, Total Bilirubin 0.4, AST 52, ALT 106 H, Alkaline Phosphatase 79, Total Protein 7.4, Albumin 4.8, Globulin 2.6, Albumin/Globulin Ratio 1.8, Lipase 36 07/23/24 08:45: Urine Color Yellow, Urine Appearance Clear, Urine pH 7.0, Ur Specific [place] 1.025, Urine Protein Negative, Urine Glucose (UA) Negative, Urine Ketones Negative, Urine Blood 2+ A, Urine Nitrate Negative, Urine Bilirubin Negative, Urine Urobilinogen 0.2, Ur Leukocyte Esterase Negative, Urine RBC 20-50, Urine WBC Occasional, Ur Squamous Epith Cells Occasional, Urine Bacteria Trace 07/23/24 07:18 07/23/24 07:18 Orders (Tests/Meds): ED MEDICATIONS Discontinued Medications Generic Name Dose Route Start Last Admin Trade Name Neo PRN Reason Stop Dose Admin Acetaminophen 1,000 mg 07/23/24 07:40 07/23/24 07:57 Acetaminophen 1,000mg/100ml Vial IV 07/23/24 07:41 1,000 mg ONCE ONE Administration Lactated Ringer's 1,000 mls @ 999 mls/hr 07/23/24 07:41 07/23/24 07:50 Lactated Ringer's 1000 Ml Bag IV 07/23/24 08:41 999 mls/hr .Q1H1M ONE Administration Ketorolac Tromethamine 15 mg 07/23/24 07:40 07/23/24 07:57 Ketorolac 30mg/Ml Vial IV 07/23/24 07:41 15 mg ONCE ONE Administration Ondansetron HCl 4 mg 07/23/24 07:40 07/23/24 07:57 Ondansetron 4mg/2ml Vial IV 07/23/24 07:41 4 mg ONCE ONE Administration ORDERS Category Date Time Status CT abdomen pelvis wo con Stat Cat Scan 07/23/24 08:12 Completed Complete Blood Count Auto Diff Stat Lab 07/23/24 07:18 Completed Comprehensive Metabolic Panel Stat Lab 07/23/24 07:18 Completed Lipase Stat Lab 07/23/24 07:18 Completed UA [Urinalysis and Microscopic] Stat Lab 07/23/24 08:45 Completed Medical Decision Narrative: In summary, this patient is a 23-year-old male presenting to the Emergency Department for evaluation of left flank pain. Differential diagnoses considered include but are not limited to ureterolithiasis, pyelonephritis, colitis, gastritis. Ruling out the most morbid conditions drove assessment. It should be noted patient's history includes recurrent kidney stones which likely is not at goal therapy. This complicates all aspects of care by increasing patient's risk for morbidity. I reviewed patient's past medical records and noted multiple previous evaluations for flank pain and his diagnosis of kidney stones in the past. He has had multiple abdominal CTs. On exam, the patient is uncomfortable appearing, writhing around in pain. He is tachycardic and hypertensive, likely related to pain. Workup included CBC, CMP, lipase, urinalysis. He was given IV Toradol, acetaminophen, Zofran, and a bolus of IV fluids. I discussed with the patient the risk of radiation with recurrent CT scans for these recurrent kidney stones. I advised that I am concerned about the number of CT scans that he has been continuing, however he requests a scan at this time. After shared decision-making, we will obtain CT scan of the abdomen and pelvis without IV contrast. I independently interpreted CT scan prior to the radiologist read and noted left-sided hydronephrosis but I do not see an obvious stone. Please see their read for final interpretation. Labs were obtained that demonstrated hematuria without urinary tract infection, reassuring CBC, reassuring chemistry with normal kidney function. On reassessment, patient had good improvement after administration of Tylenol and Toradol. He states he is feeling a lot better. At this time, it is possible he could have passed a kidney stone and there are some residual hydronephrosis there. It is also possible he could have some sort of stricture. I advise that he follow-up very closely with urology for this. Given his pain is controlled and workup is reassuring, I feel he is appropriate for discharge home with instructions for supportive management and close follow-up with urology. Strict return precautions were given. Critical Care Critical Care Time Critical Care Time: No
[2024-07-23 07:42] LABS: Blood Urea Nitrogen 12 mg/dl (9-20); Creatinine Clearance Estimated 156 mL/min (50-200); Estimated Glomerular Filt Rate 105 ml/min (>60); GFR (African American) 127 ML/MIN (>60)
[2024-07-23 07:43] LABS: Alanine Aminotransferase 106 U/L (12-78); Albumin/Globulin Ratio 1.8 (1.1-1.8); Alkaline Phosphatase 79 U/L (38-126); Aspartate Amino Transferase 52 U/L (17-59); Bilirubin,Total 0.4 mg/dl (0.2-1.3); Calcium 9.2 mg/dl (8.4-10.2); Carbon Dioxide 26 mmol/L (22.0-30.0); Globulin 2.6 g/dL (1.3-3.2); Glucose 119 mg/dl (74-100); Total Protein,Serum 7.4 g/dl (6.3-8.2)
[2024-07-23] MEDS: LACTATED RINGERS 1000ML 1,000 ML 999 ML IV (07:50)
[2024-07-23 07:56] LABS: Lipase 36 U/L (23-300)
[2024-07-23] MEDS: KETOROLAC 30MG/ML VIAL 15 MG IV (07:57)
[2024-07-23] MEDS: ACETAMINOPHEN 1,000MG/100ML VIAL 1000 MG IV (07:57)
[2024-07-23] MEDS: ONDANSETRON 4MG/2ML VIAL 4 MG IV (07:57)
[2024-07-23 08:00] VITALS: BP 138/81; PULSE 101; O2SAT 98
--- NOTE | 2024-07-23 08:12 | CT_ITS ---
FINAL REPORT TECHNIQUE: Noncontrast exam. Coronal and sagittal images were obtained and reviewed. This study was performed with techniques to keep radiation doses as low as reasonably achievable, (ALARA). Individualized dose reduction techniques using automated exposure control or adjustment of mA and/or kV according to the patient''s size were employed. CLINICAL HISTORY: L flank pain COMPARISON: 02/17/2024 FINDINGS: Abdomen: Lung bases are clear. There is fatty infiltration of the liver. The spleen, pancreas and adrenal glands have a normal CT appearance in their limited unenhanced state. The gallbladder is negative. Bowel is unremarkable. Nonobstructing 2 mm stone in the lower pole left kidney. There is mild left hydronephrosis, improved from the prior exam. No obstructing stone evident. Dilatation may be due to residual dilatation from previous obstruction, stricture, reflux, or recently passed stone. The right kidney is unremarkable. Pelvis: The appendix is normal. The previously noted bladder stone is no longer evident. No fluid collection or adenopathy is seen. IMPRESSION: Mild left hydronephrosis and hydroureter which could be due to residual dilatation from prior obstruction, reflux, stricture, or recently passed stone. Reviewed, Interpreted and Dictated by Kasandra Hughes MD Transcribed by Linh Wagoner Authenticated and [facility]
[2024-07-23 08:15] VITALS: BP 138/81; PULSE 95; O2SAT 95
[2024-07-23 08:49] LABS: Microscopic, Urine URINE MICROSCOPIC (MICROSCOPIC)
[2024-07-23 09:51] LABS: Appearance,Urine Clear (Clear); Color,Urine Yellow (Yellow); Glucose,Urine (UA) Negative (Negative); Ketones,Urine Negative (Negative); Protein,Urine Negative (Negative); Specific Gravity, Urine 1.025 (1.005-1.030)
[2024-07-23 09:52] LABS: Bilirubin,Urine Negative (Negative); Blood, Urine 2+ (Negative); Leukocyte Esterase,Urine Negative (Negative); Nitrate,Urine Negative (Negative); Urobilinogen,Urine 0.2 EU/dl (0.2)
[2024-07-23 09:55] LABS: Bacteria,Urine Trace /lpf; RBC,Urine 20-50 #/hpf (0-3); Squamous Epithelial Cell,Urine Occasional #/hpf (0-5); WBC,Urine Occasional #/hpf (0-3)
[2024-07-23 10:10] VITALS: BP 135/66; PULSE 80; RESP 16; TEMP 36.5; O2SAT 99
== END 2024-07-23 10:25 | disposition home or self-care (01) ==
PROVIDERS: Emergency Provider Emergency Medicine; PCP Family Medicine
DX: R31.9 Hematuria, unspecified (principal); N13.30 Unspecified hydronephrosis; R10.9 Unspecified abdominal pain; M54.9 Dorsalgia, unspecified
CPT/HCPCS: 74176; 80053; 81001; 83690; 85025; 96361; 96374; 96375; 99284; J0131; J1885; J2405; J7120

== ENCOUNTER 2024-12-25 19:28 | Emergency (ER) | payer BC, SELFPAY ==
[2024-12-25] VITALS (8 sets, daily range): BP systolic 137–180; BP diastolic 78–112; PULSE 85–102; RESP 16–18; TEMP 36.4–37.2; O2SAT 94–99; BMI 29.2
--- OUTSIDE RECORDS SUMMARY | 2024-12-25 20:54 | XMS_ITS | Clinical Summary ---
Author Organization Healthcare Address [address] [place] [address] Care Team Providers Care Wool Dyer Name Role Phone Arun Scott MD Primary Care Provider [phone] Allergies No known active allergies Medications phenazopyridine (Pyridium) 200 MG tablet Take 1 tablet (200 mg) by mouth 3 (three) times a day if needed for discomfort. 10 tablet 08/23/2023 Active ketorolac (Toradol) 10 MG tablet Take 1 tablet (10 mg) by mouth every 6 (six) hours if needed for moderate pain. 20 tablet 08/23/2023 Active Active Problems Problem Noted Date Diagnosed Date Ureterolithiasis 08/23/2023 Dislocation of right patella 01/19/2021 Social History Tobacco Use Types Packs/Day Years Used Date Smoking Tobacco: Never Smokeless Tobacco: Never Tobacco Cessation:Counseling Given: Not Answered Alcohol Use Standard Drinks/Week Comments Yes 0 (1 standard drink = 0.6 oz pur e alcohol) occasional CAGE ASSESSMENT Answer Date Recorded Cage unable to access Not on file 08/23/2023 Maximum number of drinks you had on a given occasion in the last month? 2 drinks 08/23/2023 How many alcoholic Beverages do you typically drink in a week? 0 - 7 per week 08/23/2023 Have you ever felt you should CUT down on your d rinking? 0 08/23/2023 Have you been ANNOYED by peo ple criticizing your drinking? 0 08/23/2023 Have you felt GUILTY about your drinking? 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 0 08/23/2023 CAGE Questionnaire Score 0 024 Sex and Gender Information Value Date Recorded Sex Assigned at Not on file Legal Sex Male 1:19 PM EDT Gender Identity Not on file Sexual Orientation Not on file Last Filed Vital Signs Vital Sign Reading Time Taken Comments Blood Pressure 126/52 08/23/2023 8:00 PM EDT Pulse 94 08/23/2023 8:00 PM EDT Temperature 36.5 C (97.7 F) 08/23/2023 6:15 PM EDT Respiratory Rate 15 08/23/2023 8:00 PM EDT Oxygen Saturation 97% 08/23/2023 8:00 PM EDT Inhaled Oxygen Concentration - - Weight 84 kg (185 lb 3 oz) 08/23/2023 2:00 PM ED T Height 162.6 cm (5' 4 ) 08/23/2023 2:00 PM EDT Body Mass Index 31.79 08/23/2023 2:00 PM EDT Plan of Treatment Health Maintenance Due Date Last Done Comments [facility]-Depression Screening 2000 [facility]-HIV Screening 2000 [facility]-Hepatitis C Screening 2000 [facility]-Infant/Child/Adol SDOH Screenings 2000 [facility]-Hepatitis B Vaccines (3 of 3 - 3-dose series) 01/11/2002 11/16/2001, 2000 HPV Vaccines (1 - Male 3-dose series) 09/29/2015 [facility]- SDOH Screenings 2018 [facility]-Adult SDOH Screenings 2018 [facility]-DTaP,Tdap,and Td Vaccines (7 - Td or Tdap) 08/29/2022 08/29/2012, 10/12/2004, 05/16/2002, Additional history exists [id number]-BRILN-45 Vaccine ( - season) 2024 [facility]-Influenza Vaccine (#1) 2025 [facility]-Zoster Vaccines (1 of 2) 2050 08/29/2012, 05/16/2002 [facility]-Pneumococcal Vaccine: Pediatrics (0 to 5 Years) and At-Risk Patients (6 to 49 Years) Aged Out 02/02/2001, 2000 No longer eligibl e based on patient's age to complete this topic [facility]-HIB Vaccines Aged Out 11/16/2001, 02/02/2001 N o longer eligible based on patient's age to complete this topic [facility]-IPV Vaccines Completed 10/12/2004, , 02/02/2001, Additional history exists [facility]-Varicella Vaccines Completed 08/29/2012, 2002 [facility]-Obesity Intervention Completed 08/22/2023 [facility]-Hepatitis A Vaccines Aged Out No longer eligible based on patient's age to complete this topic [facility]-Rotavirus Vaccines Aged Out No lo nger eligible based on patient's age to complete this topic Medical Devices Implanted Type Area Amortization Clerk Device Identifier Shelf Expiration Date Model / Serial / Lot Stent Ureteral Double Pigtail Pos 5fr 26cm - [id number] Implanted:Qty: 1 on 08/23/2023 by Maciel Nazario MD at [facility] Left: [id number] 09/20/2024 [id number] / / [id number] Advance Directives * Full Code (Latest Code Status on File) Date Activated Date Inactivated Comments 08/23/2023 1:05 AM 08/23/2023 10:59 AM Question Answer Comments Patient has decision-making capacity? Yes Care Teams Wool Dyer Relationship Specialty Start Date End Date Arun Scott MD [address] [place] [address] PCP - General 01/19/21
--- OUTSIDE RECORDS SUMMARY | 2024-12-25 20:55 | XMS_ITS | Clinical Summary ---
Author Organization [facility] Address [address] [place] [address] Care Team Providers Care Forex Trader Name Role Phone Arun Scott MD Primary Care Provider + Allergies No known active allergies Medications No known medications Active Problems No known active problems Immunizations Immunization Administration Dates Next Due DTaP, Unspecified 10/12/2004, 3,06/26/2001,02/03/20 01,2000 Hep B / HiB 11/16/2001 Hep B, Adolescent or Pediatric 2000 Hib (PRP-OMP) 02/02/2001 IPV 10/12/2004, 2,02/02/2001,11/30/19 01 MCV4 Unspecified 08/29/2012 MMR 10/12/2004,05/16/2002 PEDS-Pneumococcal Conjugate (PCV7) 02/02/2001, Tdap 08/29/2012 Varicella 08/29/2012,05/16/2002 Social History Tobacco Use Types Packs/Day Years Used Date Smoking Tobacco: Never Smokeless Tobacco: Never Tobacco Cessation:Counseling Given: Not Answered Alcohol Use Standard Drinks/Week Comments Not Currently 0 (1 standard drink = 0.6 oz pur e alcohol) Very rarly PHQ-2 Answer Date Recorded Patient Health Questionnaire-2 Score 0 07/30/2024 Sex and Gender Information Value Date Recorded Sex Assigned at Male 08/29/2023 9:22 AM EDT Legal Sex Male 9:07 AM EDT Gender Identity Male 08/29/2023 9:22 AM EDT Sexual Orientation Not on file Last Filed Vital Signs Vital Sign Reading Time Taken Comments Blood Pressure 120/90 07/30/2024 12:00 PM EDT Pulse 90 07/30/2024 12:00 PM EDT Temperature 36.4 C (97.5 F) 07/30/2024 12:00 PM EDT Respiratory Rate 20 07/30/2024 12:0 0 PM EDT Oxygen Saturation 99% 07/30/2024 12: 00 PM EDT Inhaled Oxygen Concentration - - Weight 91.5 kg (201 lb 12.8 oz) 025 12:00 PM EDT Height 162.6 cm (5' 4.02 ) 07/30/2024 1 2:00 PM EDT Body Mass Index 34.62 07/30/2024 12:00 PM EDT Plan of Treatment Health Maintenance Due Date Last Done Comments TDAP/TD VACCINES (2 - Td or Tdap) 08/29/2022 08/29/2012 ANNUAL PHYSICAL 08/29/2023 HEPATITIS C SCREENING 08/29/2023 COVID-19 Vaccine (2023-2 5 season) 2024 INFLUENZA VACCINE 02/06/2025 Pneumococcal Vaccine 0-49 Aged Out 2000, 2000 No longer eligible based on patient's age to complete this topic MENINGOCOCCAL B VACCINE Aged Out No l onger eligible based on patient's age to complete this topic Insurance [employer] P[employer] Member Subscriber Plan / Payer (Ef fective 2024-Present) Name:Chanlder Nguyen Relation to Subscriber:Self Name:Chandler Nguyen Payer ID:[id number] (NAIC) Type:Not on file Address: [facility] [id number] [place] [id number] Care Teams Forex Trader Relationship Specialty Start Date End Date Arun Scott MD [address] [place] [address] [place] [address] PCP - General Family Medicine 08/29/23
--- NOTE | 2024-12-25 22:09 | ED_ITS ---
Discharge Plan Disposition Patient Disposition: Home, Self-Care Prescriptions Prescriptions: New ketorolac 10 mg tablet 10 mg PO Q6H PRN (Reason: pain) 4 Days Qty: 16 0RF tamsulosin [Flomax] 0.4 mg capsule 0.4 mg PO DAILY Qty: 7 0RF No Action hydrocodone-acetaminophen 5-325 mg tablet 1 tab PO Q6H PRN (Reason: pain) 3 Days Qty: 12 0RF ondansetron 4 mg tablet,disintegrating 4 mg PO Q6H PRN (Reason: nausea and vomiting) 5 Days Qty: 20 0RF Referrals Follow up/Referrals: Arun Scott MD [Primary Care Provider, Medical] - See instructions Activity Restrictions/Add. Instructions Additional Instructions/Restrictions: You likely are in the process of passing a kidney stone given the blood in your urine and the location of your pain. You can take the Toradol to help with pain. If you are still having symptoms tomorrow, start taking the Flomax if you develop any new or worsening symptoms, such as fever, worsening pain, or if you become concerned for your health for any reason, return to the emergency department for evaluation.. Clinical Impressions Clinical Impression: Acute left flank pain, Hematuria Stand Alone Forms Stand Alone Forms: Work/School Release Instructions Patient Instructions: DI for Acute Abdominal Pain Print Language Print Language: Turkish Discharge ED Provider: Tony Vance Adult HPI General Chief complaint: Abdominal Pain Stated complaint: lower abdominal pain, Possible kidney stone Time Seen by Provider: 12/25/24 20:58 Mode of Arrival: Ambulatory Source of Information: Patient Description of Symptoms (Recalled from ER Triage Doc. by RN): Abdominal pain starting today; has had similar episodes in the past with kidney stones; frequent kidney stones History of Present Illness HPI narrative: Chandler Nguyen is a 24 year old male with a history of recurrent kidney stones who presents with sudden onset of tearing left flank pain that is migrating to the left lower abdomen. Patient states that it feels like previous kidney stones. He has not had any dysuria or hematuria. He reports nausea but no vomiting or fever. He denies any other significant medical history. Related Data Previous Rx's ?Medication ?Instructions ?Recorded ketorolac 10 mg tablet 10 mg PO Q6H PRN pain 4 days #16 12/25/24 tabs tamsulosin 0.4 mg capsule (Flomax) 0.4 mg PO DAILY #7 caps 12/25/24 hydrocodone 5 mg-acetaminophen 325 1 tab PO Q6H PRN pa in 3 days #12 12/26/24 mg tablet tabs ondansetron 4 mg disintegrating 4 mg PO Q6H PRN nausea and 12/26/24 tablet vomiting 5 days #20 tabs Allergies Allergy/AdvReac Type Severity Reaction Status Date / Time No Known Allergies Allergy Verified 02/21/22 17:57 [facility] Disclaimer: The information contained in this section may have been updated after the patient was seen, as this information can be updated by other users. 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 current occupational exposures/hazards: No caffeine: No Have you lived/traveled outside [place] in past 30 days?: No Contact w/someone who lives/traveled outside US past 30 days?: No Exposure to someone with infectious disease in past 14 days?: No Do you have a fever (greater than 100.4 F or 38 C)?: No Have you tested positive for COVID-19?: No Exposed to someone with COVID-19 in past 14 days?: No Do you have a sore throat?: No Do you have a cough?: No Do you have any weakness?: No Do you have any diarrhea?: No Are you experiencing any unusual bleeding?: No Do you have any muscle aches/pain?: No Do you have any abdominal pain?: No Are you experiencing loss of taste or smell?: No Other Medical History Have you received the Flu Vaccine for this season: No Have you received the Pneumonia Vaccine: No ROS Obtained: Yes Systems reviewed as appropriate & no additional complaints except as documented Physical Exam General General appearance: alert Comment: Appears uncomfortable Head Head exam: atraumatic Eye Eye exam: Present normal appearance ENT ENT exam: Present normal external ear exam Neck Neck exam: Present full ROM Chest Chest inspection: Present symmetric chest wall rise Respiratory Respiratory exam: Present normal lung sounds bilaterally; Absent respiratory distress, wheezes or stridor Cardiovascular Cardiovascular exam: Present regular rate and normal rhythm Abdominal Exam Abdominal exam: Present soft; Absent distention, tenderness or guarding exam: Present deferred Extremities Exam Extremities exam: Present normal inspection Back Exam Back exam: Present normal inspection and CVA tenderness (L); Absent CVA tenderness (R) Neurological Exam Neurological exam: Present alert and oriented X3 Psychiatric Psychiatric exam: Present normal affect Skin Skin exam: Present warm and dry Medical Decision Making Medical Records Screening: Per USPSTF and CDC recommendations, given the prevalence of disease in our region, it is our hospital?s policy to screen for HIV and viral Hepatitis for all patients aged 18 and over and those with ongoing risk factors. [place] Inquiry Pt receiving controlled substance: No Vital Signs: 12/25/24 20:55 12/25/24 20:58 12/25/24 21:00 Temperature 97.9 F Temperature Source Oral Pulse Rate 102 H 89 Pulse Rate [Right Radial] 85 Respiratory Rate 16 Blood Pressure 180/111 H 154/112 H Blood Pressure [Right Arm] 180/111 H Blood Pressure Mean Blood Pressure Mean [Right Arm] 134 Blood Pressure Source Blood Pressure Source [Right Arm] Automatic Cuff Blood Pressure Position Blood Pressure Position [Right Arm] Supine 02 Sat by Pulse Oximetry 98 98 97 Oxygen Delivery Method Room Air 12/25/24 22:15 12/25/24 22:30 12/25/24 23:00 Temperature Temperature Source Pulse Rate 94 H 95 H Pulse Rate [Right Radial] Respiratory Rate 16 16 Blood Pressure 148/78 H 159/80 H Blood Pressure [Right Arm] Blood Pressure Mean 101 111 Blood Pressure Mean [Right Arm] Blood Pressure Source Blood Pressure Source [Right Arm] Blood Pressure Position Blood Pressure Position [Right Arm] 02 Sat by Pulse Oximetry 97 94 L Oxygen Delivery Method 12/25/24 23:30 12/25/24 23:50 12/26/24 00:00 Temperature 97.6 F 98.9 F 97.8 F Temperature Source Oral Pulse Rate 87 89 87 Pulse Rate [Right Radial] Respiratory Rate 18 16 Blood Pressure 146/80 H 137/88 138/79 Blood Pressure [Right Arm] Blood Pressure Mean 102 97 Blood Pressure Mean [Right Arm] Blood Pressure Source Automatic Cuff Blood Pressure Source [Right Arm] Blood Pressure Position Supine Blood Pressure Position [Right Arm] 02 Sat by Pulse Oximetry 97 99 98 Oxygen Delivery Method Room Air 12/26/24 00:24 Temperature 98.9 F Temperature Source Pulse Rate 89 Pulse Rate [Right Radial] Respiratory Rate 19 Blood Pressure 137/88 Blood Pressure [Right Arm] Blood Pressure Mean Blood Pressure Mean [Right Arm] Blood Pressure Source Blood Pressure Source [Right Arm] Blood Pressure Position Blood Pressure Position [Right Arm] 02 Sat by Pulse Oximetry Oxygen Delivery Method Room Air Lab Data Lab Results 12/25/24 21:09: WBC 9.3, RBC 5.66, Hgb 15.9, Hct 47.2, MCV 83.4, MCH 28.1, MCHC 33.7, RDW 12.5, Plt Count 316, MPV 10.4, Neut % (Auto) 63.6, Lymph % (Auto) 25.2, [place] % (Auto) 9.0, Eos % (Auto) 1.4, Baso % (Auto) 0.4, Neut # (Auto) 5.9, Lymph # (Auto) 2.3, [place] # (Auto) 0.8, Eos # (Auto) 0.1, Baso # (Auto) 0.0, Sodium 141, Potassium 4.5, Chloride 105, Carbon Dioxide 26, Anion Gap 14.5, BUN 13, Creatinine 1.00, Estimated Creat Clear 124, Estimated GFR 92, Est GFR ( Amer) 111, Glucose 87, Calcium 9.8, Total Bilirubin 0.6, AST 50, ALT 95 H, Alkaline Phosphatase 76, Total Protein 8.1, Albumin 4.8, Globulin 3.3 H, Albumin/Globulin Ratio 1.5, Lipase 23 12/25/24 22:46: Urine Color Dark yellow, Urine Appearance Slightly cloudy, Urine pH 8.5, Ur Specific [place] 1.015, Urine Protein Trace, Urine Glucose (UA) Negative, Urine Ketones Negative, Urine Blood 1+ A, Urine Nitrate Negative, Urine Bilirubin Negative, Urine Urobilinogen 0.2, Ur Leukocyte Esterase Negative, Urine RBC 10-20, Urine WBC 3-5, Ur Squamous Epith Cells 3-5, Amorphous Sediment 1+, Urine Bacteria 1+, Urine Mucus 1+ 12/25/24 23:27: Lactate 0.8 12/25/24 21:09 12/25/24 21:09 Orders (Tests/Meds): ED MEDICATIONS Discontinued Medications Generic Name Dose Route Start Last Admin Trade Name Neo PRN Reason Stop Dose Admin Hydromorphone HCl 0.5 mg 12/25/24 22:07 12/25/24 22:19 Hydromorphone 2mg/Ml Syringe IV 12/25/24 22:08 0.5 mg ONCE ONE Administration Lactated Ringer's 1,000 mls @ 999 mls/hr 12/25/24 22:13 12/25/24 23:52 Lactated Ringer's 1000 Ml Bag IV 12/25/24 23:13 Infused .Q1H1M ONE Infusion Ketorolac Tromethamine 15 mg 12/25/24 21:55 12/25/24 22:19 Ketorolac 30mg/Ml Vial IV 12/25/24 21:56 15 mg ONCE ONE Administration Morphine Sulfate 2 mg 12/25/24 21:55 12/25/24 22:52 Morphine 2mg/Ml Syringe IV 12/25/24 21:56 Not Given ONCE ONE Ondansetron HCl 4 mg 12/25/24 21:55 12/25/24 22:19 Ondansetron 4mg/2ml Vial IV 12/25/24 21:56 4 mg ONCE ONE Administration ORDERS Category Date Time Status POCUS Point of Care (ER Only) Stat Exams 12/25/24 22:07 Completed Complete Blood Count Auto Diff Stat Lab 12/25/24 21:09 Completed Comprehensive Metabolic Panel Stat Lab 12/25/24 21:09 Completed Lactic Acid Stat Lab 12/25/24 23:27 Completed Lipase Stat Lab 12/25/24 21:09 Completed Urinalysis and Microscopic Stat Lab 12/25/24 22:46 Completed Medical Decision Narrative: Chandler Nguyen is a 24 year old male with a history of recurrent kidney stones who presents with sudden onset of tearing left flank pain that is migrating to the left lower abdomen. Patient states that it feels like previous kidney stones. He has not had any dysuria or hematuria. He reports nausea but no vomiting or fever. He denies any other significant medical history. On arrival, patient is hemodynamically stable, afebrile, in no acute respiratory distress, breathing comfortably on room air with appropriate oxygen saturation. Physical exam, stated above, revealed an uncomfortable appearing male. He has left-sided CVA tenderness. Cardiopulmonary exams unremarkable. Abdomen is otherwise soft and nondistended. Differential diagnosis includes, but is not limited to: Ureterolithiasis, infected kidney stone, urinary tract infection, pyelonephritis, acute kidney injury, among others. The most morbid conditions were considered and workup was based on these. Workup in the emergency department included: CBC, CMP, lipase, urinalysis, [id number] renal ultrasound. Patient was treated with 1 L lactated ringer, 0.5 mg IV Dilaudid, 15 mg IV Toradol, 4 mg of IV Zofran. Hjjhy-nh-[id number] ultrasound performed by me personally. Patient has very minimal hydronephrosis of the left kidney. No identifiable stone in the proximal ureter. See procedure note for details. CT imaging of the abdomen pelvis without contrast was considered to evaluate for renal stone, however after discussing with patient, he has had numerous CT scans in the past due to kidney stones. He feels that this is likely a smaller stone and is continuing to migrate. Given this, we will defer CT imaging at this time if symptoms do not improve. On reassessment, patient states that his pain is nearly completely resolved. Patient's workup showed no leukocytosis, no anemia, no WHIT with creatinine normal at 1.0, BUN of 13. ALT mildly elevated at 95 the liver enzymes otherwise within normal limits. ALT has been elevated in the past. Lipase normal at 23. Urinalysis shows 10-20 red blood cells but no evidence of infection with 3-5 white blood cells. Negative nitrites. Negative leukocyte Estrace. Given no evidence of UTI/infected renal stone with improvement of symptoms, is felt that he is appropriate for discharge at this time. Will send patient with prescription for Flomax as well as Toradol. Patient was given return precautions for any worsening symptoms, or evidence of infection. All questions were answered. He demonstrated understanding and was in agreement this plan. He was then discharged from the emergency department in stable condition. Procedures Limited Ultrasound Interpretation:: Limited renal ultrasound Indication: A focused ultrasound of the kidneys was performed to evaluate for hydronephrosis and nephrolithiasis. The ultrasound was performed with the following indications, as noted in the H&P: Left flank pain Identified structures: Left kidney Findings: - mild hydronephrosis Impression: - Mild left hydronephrosis Images were saved to permanent archive The study was technically adequate CPT: 18779-19 This study was performed by me, and I personally interpreted all images/videos. Based on my clinical judgement, these images were adequate and did not necessitate further imaging. Critical Care Critical Care Time Critical Care Time: No
[2024-12-25 22:15] LABS: Hematocrit 47.2 % (42.0-52.0); Hemoglobin 15.9 g/dL (14.1-18.0); Immature Granulocytes % 0.4 %; Mean Corpuscular HGB Conc 33.7 g/dL (31.8-35.4); Mean Corpuscular Hemoglobin 28.1 pg (27.0-31.2); Mean Corpuscular Volume 83.4 fl (80-94); Nucleated Red Blood Cells % 0 %; Platelet Count 316 K/mm3 (142-424); Red Blood Count 5.66 M/mm3 (4.60-6.20); Red Cell Distribution Width-SD 38.1 fL; White Blood Count 9.3 K/mm3 (4.8-10.8)
[2024-12-25 22:17] LABS: Albumin Level 4.8 g/dl (3.5-5.0); Chloride 105 mmol/L (98-107); Potassium 4.5 mmoL/L (3.5-5.1); Sodium 141 mmol/L (136-145)
[2024-12-25] MEDS: KETOROLAC 30MG/ML VIAL 15 MG IV (22:19)
[2024-12-25] MEDS: ONDANSETRON 4MG/2ML VIAL 4 MG IV (22:19)
[2024-12-25] MEDS: HYDROMORPHONE 2MG/ML SYRINGE 0.5 MG IV (22:19)
[2024-12-25 22:20] LABS: Alanine Aminotransferase 95 U/L (12-78); Albumin/Globulin Ratio 1.5 (1.1-1.8); Alkaline Phosphatase 76 U/L (38-126); Anion Gap 14.5 mEq/L (5-15); Aspartate Amino Transferase 50 U/L (17-59); Bilirubin,Total 0.6 mg/dl (0.2-1.3); Blood Urea Nitrogen 13 mg/dl (9-20); Calcium 9.8 mg/dl (8.4-10.2); Carbon Dioxide 26 mmol/L (22.0-30.0); Creatinine Clearance Estimated 124 mL/min (50-200); Creatinine,Serum 1.00 mg/dl (0.66-1.25); Estimated Glomerular Filt Rate 92 ml/min (>60); GFR (African American) 111 ML/MIN (>60); Globulin 3.3 g/dL (1.3-3.2); Glucose 87 mg/dl (74-100); Lipase 23 U/L (23-300); Total Protein,Serum 8.1 g/dl (6.3-8.2)
[2024-12-25] MEDS: LACTATED RINGERS 1000ML 1,000 ML 999 ML IV (22:21)
[2024-12-25 22:53] LABS: Microscopic, Urine URINE MICROSCOPIC (MICROSCOPIC)
[2024-12-25 22:55] LABS: Bilirubin,Urine Negative (Negative); Glucose,Urine (UA) Negative (Negative); Ketones,Urine Negative (Negative); Leukocyte Esterase,Urine Negative (Negative); PH,Urine 8.5 (5.0-8.5); Protein,Urine TRACE (Negative); Specific Gravity, Urine 1.015 (1.005-1.030); Urobilinogen,Urine 0.2 EU/dl (0.2)
[2024-12-25 22:57] LABS: Color,Urine Dark Yellow (Yellow)
[2024-12-25 23:16] LABS: Amorphous Sediment,Urine 1+ /lpf; Bacteria,Urine 1+ /lpf; Mucus,Urine 1+ /lpf
[2024-12-26] VITALS: BP 138/79; PULSE 87; RESP 16; TEMP 36.6; O2SAT 98
[2024-12-26 00:24] VITALS: BP 137/88; PULSE 89; RESP 19; TEMP 37.2; O2SAT 98
== END 2024-12-26 00:25 | disposition home or self-care (01) ==
PROVIDERS: Physician Assistant; Emergency Provider Student in an Organized Health Care Education/Training Program; PCP Family Medicine
DX: R10.32 Left lower quadrant pain (principal); N13.30 Unspecified hydronephrosis; R31.9 Hematuria, unspecified; R11.0 Nausea; Z87.442 Personal history of urinary calculi
CPT/HCPCS: 80053; 81001; 83605; 83690; 85025; 96361; 96374; 96375; 99285; J1171; J1885; J2405; J7120

== ENCOUNTER 2024-12-26 08:53 | Emergency (ER) | payer BC, SELFPAY ==
[2024-12-26] VITALS (7 sets, daily range): BP systolic 136–171; BP diastolic 81–108; PULSE 74–98; RESP 18; TEMP 36.9; O2SAT 90–97; BMI 29.2
--- OUTSIDE RECORDS SUMMARY | 2024-12-26 09:01 | XMS_ITS | Clinical Summary ---
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) to steady your nerves or to get [...] 08/29/2022 08/29/2012, 10/12/2004, 05/16/2002, Additional history exists [id number] Vaccine ( - season) 2024 UKY-Influenza Vaccine [...] this topic Medical Devices Implanted Type Area Personnel Associate Device Identifier Shelf Expiration Date Model / Serial / Lot Stent Ureteral Double Pigtail Pos 5fr 26cm - [id number] Implanted:Qty: 1 on 08/23/2023 by Maciel Nazario MD at [facility] Left: [id number] 09/20/2024 [id number] / / [id number] Advance Directives * Full Code (Latest Code Status on File) Date Activated Date Inactivated Comments 08/23/2023 1:05 AM 08/23/2023 10:59 AM Question Answer Comments Patient has decision-making capacity? Yes Care Teams Sound Recording Technician Relationship Specialty Start Date End Date Arun Scott MD [address] [facility] [place] [address] PCP - General 01/19/21
--- OUTSIDE RECORDS SUMMARY | 2024-12-26 09:02 | XMS_ITS | Clinical Summary ---
Author Organization [facility] Address [address] [place] [address] Care Team Providers Care Signs And Displays Sales Representative Name Role Phone Arun Scott MD Primary [...] patient's age to complete this topic Insurance [facility] PPO Member Subscriber Plan / Payer (Ef fective 2024-Present) Name:Chandler Nguyen Relation to Subscriber:Self Name:Chandler Nguyen Payer ID:[id number] (NAIC) Type:Not on file Address: [facility] [id number] [place] [id number] Care Teams Signs And Displays Sales Representative Relationship Specialty Start Date End Date Arun Scott MD [address] [place] [address] [place] [id number] PCP - General Family Medicine 08/29/23
--- NOTE | 2024-12-26 09:14 | PC.NURSE ---
I rounded on the pt and took him a warm blanket to proved comfort. no other needs voiced. no new complaints, however, pt reports 02/15 pain, notified. no new orders received.
--- NOTE | 2024-12-26 09:25 | CT_ITS ---
FINAL REPORT TECHNIQUE: Axial images through the abdomen and pelvis were performed without contrast. This study was performed with techniques to keep radiation doses as low as reasonably achievable, (ALARA). Individualized dose reduction techniques using automated exposure control or adjustment of mA and/or kV according to the patient's size were employed. CLINICAL HISTORY: left flank pain COMPARISON: 02/17/2024 FINDINGS: Abdomen: The lung bases are clear. There is diffuse fatty infiltration of the liver. The gallbladder is present. There are calcified granulomas in the spleen. The pancreas and adrenals are unremarkable. There is moderate left hydronephrosis secondary to an obstructing stone in the proximal left ureter measuring 4 mm. There are also multiple small nonobstructing stones in the left kidney. Pelvis: The appendix is normal. No bladder stones are identified. There is no pelvic mass or inflammation. IMPRESSION: Moderate left hydronephrosis secondary to a obstructing proximal left ureteral stone. Left nephrolithiasis. Reviewed, Interpreted and Dictated by Anson Barton MD Transcribed by Johanna Escobar Authenticated and [facility]
--- NOTE | 2024-12-26 09:27 | ED_ITS ---
Discharge Plan Disposition Patient Disposition: Home, Self-Care Prescriptions Prescriptions: New hydrocodone-acetaminophen 5-325 mg tablet 1 tab PO Q6H PRN (Reason: pain) 3 Days Qty: 12 0RF ondansetron 4 mg tablet,disintegrating 4 mg PO Q6H PRN (Reason: nausea and vomiting) 5 Days Qty: 20 0RF No Action ketorolac 10 mg tablet 10 mg PO Q6H PRN (Reason: pain) 4 Days Qty: 16 0RF tamsulosin [Flomax] 0.4 mg capsule 0.4 mg PO DAILY Qty: 7 0RF Referrals Follow up/Referrals: Arun Scott MD [Primary Care Provider, Medical] - See instructions Activity Restrictions/Add. Instructions Additional Instructions/Restrictions: You have a left mid ureteral 4 mm obstructing stone that likely will pass on its own. Please follow-up with your urologist if you continue to be symptomatic more than a few days. Return with any high fevers or other symptoms. Clinical Impressions Clinical Impression: Hydronephrosis concurrent with and due to calculi of kidney and ureter Stand Alone Forms Stand Alone Forms: Work/School Release Instructions Patient Instructions: DI for Urinary Tract Infection (UTI), DI for Urinary Tract Infection in Children Print Language Print Language: Uzbek Discharge ED Provider: Norah Carlin General Adult HPI General Chief complaint: Urogenital-Male Stated complaint: kidney stone, pain Time Seen by Provider: 12/26/24 09:23 Mode of Arrival: Ambulatory Source of Information: Patient Description of Symptoms (Recalled from ER Triage Doc. by RN): diagnosed with kidney stones last night, unable to obtain prescribed meds before pain became increasingly worse History of Present Illness HPI narrative: Patient is a 24-year-old male with a history of kidney stones presents today with left flank pain. Was here late last night in the emergency department had an ultrasound done and he was completely asymptomatic thought he had passed a stone but his pain has since returned and is severe. States has had multiple stones in the past has actually had surgical intervention many years ago. Denies any fevers or chills or any other symptoms and is in extreme discomfort at the moment. Related Data Previous Rx's ?Medication ?Instructions ?Recorded ketorolac 10 mg tablet 10 mg PO Q6H PRN pain 4 days #16 12/25/24 tabs tamsulosin 0.4 mg capsule (Flomax) 0.4 mg PO DAILY #7 caps 12/25/24 hydrocodone 5 mg-acetaminophen 325 1 tab PO Q6H PRN pa in 3 days #12 12/26/24 mg tablet tabs ondansetron 4 mg disintegrating 4 mg PO Q6H PRN nausea and 12/26/24 tablet vomiting 5 days #20 tabs Allergies Allergy/AdvReac Type Severity Reaction Status Date / Time No Known Allergies Allergy Verified 02/21/22 17:57 [facility] Disclaimer: The information contained in this section may have been updated after the patient was seen, as this information can be updated by other users. 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 current occupational exposures/hazards: No caffeine: No Have you lived/traveled outside [place] in past 30 days?: No Contact w/someone who lives/traveled outside [place] past 30 days?: No Exposure to someone with infectious disease in past 14 days?: No Do you have a fever (greater than 100.4 F or 38 C)?: No Have you tested positive for COVID-19?: No Exposed to someone with COVID-19 in past 14 days?: No Do you have a sore throat?: No Do you have a cough?: No Do you have any weakness?: No Do you have any diarrhea?: No Are you experiencing any unusual bleeding?: No Do you have any muscle aches/pain?: No Do you have any abdominal pain?: No Are you experiencing loss of taste or smell?: No Other Medical History Have you received the Flu Vaccine for this season: No Have you received the Pneumonia Vaccine: No ROS Obtained: Yes All systems reviewed & no additional complaints except as documented Physical Exam General General appearance: in distress (In severe pain having difficulty having a conversation with me due to the pain) Respiratory Respiratory exam: Present normal lung sounds bilaterally Cardiovascular Cardiovascular exam: Present regular rate Abdominal Exam Abdominal exam: Present soft; Absent distention or tenderness Back Exam Back exam: Absent CVA tenderness (R) or CVA tenderness (L) Neurological Exam Neurological exam: Present alert and oriented X3 Medical Decision Making Medical Records Screening: Per USPSTF and CDC recommendations, given the prevalence of disease in our region, it is our hospital?s policy to screen for HIV and viral Hepatitis for all patients aged 18 and over and those with ongoing risk factors. [place] Inquiry Pt receiving controlled substance: No Vital Signs: 12/26/24 08:59 12/26/24 09:37 12/26/24 10:00 Temperature Temperature Source Pulse Rate 94 H 98 H Pulse Rate [Right Brachial] 89 Respiratory Rate 18 Blood Pressure 137/87 136/98 H Blood Pressure [Right Arm] 171/108 H Blood Pressure Mean 103 107 Blood Pressure Mean [Right Arm] 129 Blood Pressure Source [Right Arm] Automatic Cuff Blood Pressure Position [Right Arm] Sitting 02 Sat by Pulse Oximetry 96 97 97 Oxygen Delivery Method Room Air Room Air Room Air 12/26/24 10:15 12/26/24 11:00 12/26/24 11:30 Temperature Temperature Source Pulse Rate 81 80 74 Pulse Rate [Right Brachial] Respiratory Rate Blood Pressure 136/98 H 146/81 H 138/98 H Blood Pressure [Right Arm] Blood Pressure Mean 103 105 Blood Pressure Mean [Right Arm] Blood Pressure Source [Right Arm] Blood Pressure Position [Right Arm] 02 Sat by Pulse Oximetry 90 L 94 L 96 Oxygen Delivery Method 12/26/24 11:39 Temperature 98.5 F Temperature Source Oral Pulse Rate 86 Pulse Rate [Right Brachial] Respiratory Rate 18 Blood Pressure 138/98 H Blood Pressure [Right Arm] Blood Pressure Mean Blood Pressure Mean [Right Arm] Blood Pressure Source [Right Arm] Blood Pressure Position [Right Arm] 02 Sat by Pulse Oximetry Oxygen Delivery Method Lab Data Lab results reviewed: Yes I reviewed the patient's lab results. Lab Results 12/26/24 09:00: WBC 11.1 H, RBC 5.49, Hgb 15.3, Hct 46.1, MCV 84.0, MCH 27.9, MCHC 33.2, RDW 12.5, Plt Count 267, MPV 10.1, Neut % (Auto) 74.0, Lymph % (Auto) 13.4, [place] % (Auto) 10.7 H, Eos % (Auto) 0.9, Baso % (Auto) 0.5, Neut # (Auto) 8.2 H, Lymph # (Auto) 1.5, [place] # (Auto) 1.2 H, Eos # (Auto) 0.1, Baso # (Auto) 0.1, Sodium 141, Potassium 4.6, Chloride 104, Carbon Dioxide 27, Anion Gap 14.6, BUN 20 D, Creatinine 1.50 H D, Estimated Creat Clear 83, Estimated GFR 57 L, E st GFR ( Amer) 70 D, Glucose 110 H D, Calcium 10.1, Total Bilirubin 0.8, AST 47, ALT 92 H, Alkaline Phosphatase 69, Total Protein 7.4, Albumin 4.5, Globulin 2.9, Albumin/Globulin Ratio 1.6 12/26/24 10:48: Urine Color Yellow, Urine Appearance Clear, Urine pH 6.5, Ur Specific [place] 1.010, Urine Protein Negative, Urine Glucose (UA) Negative, Urine Ketones Negative, Urine Blood Negative, Urine Nitrate Negative, Urine Bilirubin Negative, Urine Urobilinogen 0.2, Ur Leukocyte Esterase Negative, Urine RBC 3-5, Urine WBC Occasional, Ur Squamous Epith Cells Occasional, Amorphous Sediment 2+, Urine Bacteria 1+ 12/26/24 09:00 12/26/24 09:00 Orders (Tests/Meds): ED MEDICATIONS Discontinued Medications Generic Name Dose Route Start Last Admin Trade Name Freq PRN Reason Stop Dose Admin Lactated Ringer's 1,000 mls @ 999 mls/hr 12/26/24 09:30 12/26/24 10:37 Lactated Ringer's 1000 Ml Bag IV 12/26/24 10:30 Infused .Q1H1M SHARMILA Infusion Ketorolac Tromethamine 15 mg 12/26/24 09:25 12/26/24 09:30 Ketorolac 30mg/Ml Vial IV 12/26/24 09:26 15 mg ONCE ONE Administration Morphine Sulfate 4 mg 12/26/24 09:25 12/26/24 09:31 Morphine 4mg/Ml Syringe IV 12/26/24 09:26 4 mg ONCE ONE Administration Ondansetron HCl 4 mg 12/26/24 09:25 12/26/24 09:30 Ondansetron 4mg/2ml Vial IV 12/26/24 09:26 4 mg ONCE ONE Administration ORDERS Category Date Time Status CT abdomen pelvis wo con Stat Cat Scan 12/26/24 09:25 Completed CBC w/Auto Diff [Complete Blood Count Auto Diff] Stat Lab 12/26/24 09:00 Completed CMP [Comprehensive Metabolic Panel] Stat Lab 12/26/24 09:00 Completed UA [Urinalysis and Microscopic] Stat Lab 12/26/24 10:48 Completed Medical Decision Narrative: Patient with above history and physical. In severe discomfort we will get a noncontrasted CT scan and give IV pain medications and reassess the patient. Working diagnosis is a kidney stone. Pyelonephritis bowel obstruction diverticulitis etc. are also on the differential. Reassessment 1142 patient feeling much better. CT scan was performed which I personally interpreted which shows a 4 mm mid ureteral stone on the left with associated hydronephrosis. Urinalysis unremarkable from an infectious standpoint. Patient does have a mild increase in his creatinine since yesterday from 1-1.5 with a mild WHIT he has been given IV fluids here. I have advised that he aggressively drink hydration at home and that this is likely what caused his mild acute kidney injury does not have bilateral obstructing issues. He is aware of this his creatinine has gone up to as high as 1.9 in the past and needs to closely follow-up on this. Patient would like to go home and see if he can pass the stone. He has a urine strainer he was prescribed Flomax and Toradol yesterday which he did not fill he will get those filled have added [place] and Zofran onto his regimen. Specifically he needs to make sure he can hydrate himself at home and will return with any significant worsening of his symptoms including refractory pain nausea vomiting high fevers or other concerns. He has a established relationship with Dr. Peralta and will follow-up if he continues to have symptoms. Critical Care Critical Care Time Critical Care Time: No
[2024-12-26] MEDS: KETOROLAC 30MG/ML VIAL 15 MG IV (09:30)
[2024-12-26] MEDS: ONDANSETRON 4MG/2ML VIAL 4 MG IV (09:30)
[2024-12-26] MEDS: MORPHINE 4MG/ML SYRINGE 4 MG IV (09:31)
[2024-12-26] MEDS: LACTATED RINGERS 1000ML 1,000 ML 999 ML IV (09:31)
[2024-12-26 09:33] LABS: Albumin Level 4.5 g/dl (3.5-5.0); Chloride 104 mmol/L (98-107); Hematocrit 46.1 % (42.0-52.0); Hemoglobin 15.3 g/dL (14.1-18.0); Immature Granulocytes % 0.5 %; Mean Corpuscular HGB Conc 33.2 g/dL (31.8-35.4); Mean Corpuscular Hemoglobin 27.9 pg (27.0-31.2); Mean Corpuscular Volume 84.0 fl (80-94); Nucleated Red Blood Cells % 0 %; Platelet Count 267 K/mm3 (142-424); Potassium 4.6 mmoL/L (3.5-5.1); Red Blood Count 5.49 M/mm3 (4.60-6.20); Red Cell Distribution Width-SD 38.2 fL; Sodium 141 mmol/L (136-145); White Blood Count 11.1 K/mm3 (4.8-10.8)
[2024-12-26 09:35] LABS: Blood Urea Nitrogen 20 mg/dl (9-20); Creatinine Clearance Estimated 83 mL/min (50-200); Creatinine,Serum 1.50 mg/dl (0.66-1.25); Estimated Glomerular Filt Rate 57 ml/min (>60); GFR (African American) 70 ML/MIN (>60)
[2024-12-26 09:36] LABS: Alanine Aminotransferase 92 U/L (12-78); Albumin/Globulin Ratio 1.6 (1.1-1.8); Alkaline Phosphatase 69 U/L (38-126); Anion Gap 14.6 mEq/L (5-15); Aspartate Amino Transferase 47 U/L (17-59); Bilirubin,Total 0.8 mg/dl (0.2-1.3); Calcium 10.1 mg/dl (8.4-10.2); Carbon Dioxide 27 mmol/L (22.0-30.0); Globulin 2.9 g/dL (1.3-3.2); Glucose 110 mg/dl (74-100); Total Protein,Serum 7.4 g/dl (6.3-8.2)
[2024-12-26 10:53] LABS: Microscopic, Urine URINE MICROSCOPIC (MICROSCOPIC)
[2024-12-26 11:02] LABS: Bilirubin,Urine Negative (Negative); Color,Urine YELLOW (Yellow); Glucose,Urine (UA) Negative (Negative); Ketones,Urine Negative (Negative); Leukocyte Esterase,Urine Negative (Negative); PH,Urine 6.5 (5.0-8.5); Protein,Urine Negative (Negative); Specific Gravity, Urine 1.010 (1.005-1.030); Urobilinogen,Urine 0.2 EU/dl (0.2)
[2024-12-26 11:44] LABS: Amorphous Sediment,Urine 2+ /lpf; Bacteria,Urine 1+ /lpf
[2024-12-26 11:49] LABS: WBC,Urine Occasional #/hpf (0-3)
[2024-12-26 11:50] LABS: Squamous Epithelial Cell,Urine Occasional #/hpf (0-5)
== END 2024-12-26 11:50 | disposition home or self-care (01) ==
PROVIDERS: Emergency Provider Student in an Organized Health Care Education/Training Program; PCP Family Medicine
DX: R10.32 Left lower quadrant pain (principal); N13.2 Hydronephrosis with renal and ureteral calculous obstruction
CPT/HCPCS: 74176; 80053; 81001; 85025; 96361; 96374; 96375; 99284; J1885; J2270; J2405; J7120